=== PATIENT | male | born 1940 | race Caucasian/White ===

== ENCOUNTER 2016-09-12 17:38 | Emergency (ER) | payer MEDICARE ==
[2016-09-12 19:44] LABS: Appearance,Urine Clear (Clear); Bilirubin,Urine Negative (Negative); Glucose,Urine (UA) Negative (Negative); Ketones,Urine Negative (Negative); Leukocyte Esterase,Urine Negative (Negative); Nitrite,Urine Negative (Negative); PH, Urine 6.5 (5.0-8.0); Protein,Urine Negative (Negative); Specific Gravity,Urine 1.011 (1.001-1.035); UA Billing (MACRO vs. MICRO) CHEM; Urobilinogen,Urine <2.0 mg/dL (<2.0)
--- NOTE | 2016-09-12 19:54 | US ---
EXAMINATION TYPE: US scrotum with doppler. Grayscale and color Doppler Duplex imaging performed of t lia scrotum. DATE OF EXAM: 09/12/2016 COMPARISON: NONE CLINICAL HISTORY: Pain, patient states blood in semen. EXAM MEASUREMENTS: TESTICLES: Right Testicle: 4.0 x 1.9 x 2.9 cm Left Testicle: 4.4 x 2.1 x 2.7 cm EPIDIDYMIS HEAD: Right Epididymis: 1.3 cm, Two cystic areas visualized, largest measuring 0.4 x 0.3 x 0.6 cm Left Epididymis: 0.9 cm, cyst visualized measuring 0.4 x 0.4 x 0.5 cm Doppler performed to assess for testicular vascularity; good bilateral color flow and waveforms are s een. There is no evidence of testicular torsion. Presence of hydroceles: No Presence of varicoceles: No IMPRESSION: No testicular torsion or mass. Small epididymal cysts.
--- NOTE | 2016-09-12 20:36 | ED ---
General Adult HPI - General Chief complaint: GI Bleed Stated complaint: blood in semen Time Seen by Provider: 09/12/16 18:32 Source: patient, RN notes reviewed Mode of arrival: ambulatory Limitations: no limitations - History of Present Illness Initial comments: 76-year-old male presents with scant amount of semen and blood, Indigo discharged while taking a bowel movement. Patient states he was having a normal bowel movement, denies constipation or difficulty passing the stool when he noticed some semen with a small drop of blood in it. He also has bilateral testicular pain which has been present for some time. Patient is on aspirin and not on any anticoagulants. Denies any penile trauma, denies scrotal trauma, denies any difficulty passing stools. Denies fever or chills. Denies nausea vomiting or diarrhea. Has no rectal pain. - Related Data Home Medications Medication Instructions Recorded Confirmed Aspirin EC [Ecotrin Low Dose] 81 mg PO DAILY 09/12/16 09/12/16 Atorvastatin [Lipitor] 40 mg PO HS 09/12/16 09/12/16 Biotin 5 mg PO DAILY 09/12/16 09/12/16 Carvedilol [Coreg] 12.5 mg PO BID 09/12/16 09/12/16 Hydrochlorothiazide [Hydrodiuril] 25 mg PO DAILY 09/12/16 09/12/16 Ibuprofen [Motrin] 200 - 400 mg PO Q6HR PRN 09/12/16 09/12/16 Loratadine [Claritin] 10 mg PO DAILY PRN 09/12/16 09/12/16 Ubidecarenone [Co Q-10] 200 mg PO QAM 09/12/16 09/12/16 Allergies Allergy/AdvReac Type Severity Reaction Status Date / Time Penicillins Allergy Unknown Verified 09/12/16 18:40 Review of Systems ROS Statement: Those systems with pertinent positive or pertinent negative responses have been documented in the HPI. ROS Other: All systems not noted in ROS Statement are negative. Past Medical History Past Medical History: Hyperlipidemia, Hypertension History of Any Multi-Drug Resistant Organisms: None Reported Past Surgical History: Cholecystectomy, Coronary Bypass/CABG, Tonsillectomy Past Psychological History: No Psychological Hx Reported Smoking Status: Never smoker Past Alcohol Use History: Occasional Past Drug Use History: None Reported General Exam Limitations: no limitations General appearance: alert, in no apparent distress Head exam: Present: atraumatic, normocephalic Eye exam: Present: normal appearance, PERRL ENT exam: Present: normal exam, mucous membranes moist Neck exam: Present: normal inspection. Absent: meningismus Respiratory exam: Present: normal lung sounds bilaterally, respiratory distress Cardiovascular Exam: Present: regular rate, normal rhythm GI/Abdominal exam: Present: soft. Absent: distended, tenderness exam: Present: normal inspection. Absent: testicular tenderness, urethral discharge, scrotal swelling, vertical testicular lie Extremities exam: Present: normal capillary refill. Absent: pedal edema Neurological exam: Present: alert, oriented X3 Psychiatric exam: Present: normal affect, normal mood Skin exam: Present: warm, dry Course Vital Signs 09/12/16 09/12/16 18:14 20:07 Temperature 97.9 F Pulse Rate 77 65 Respiratory 18 18 Rate Blood Pressure 151/87 140/66 O2 Sat by Pulse 97 97 Oximetry Medical Decision Making - Medical Decision Making 70 sexual male presenting with blood-tinged seamen during a bowel movement. This is an isolated episode. Denies any recent intercourse. Does have some bilateral testicle pain. No other complaints. Urinalysis is negative for blood or signs of infection, bilateral testicular ultrasound shows epididymal cyst bilateral. No other acute findings. Patient is reassured and given urology follow-up. He'll return to emergency department with worsening symptoms. - Lab Data Lab Results 09/12/16 Range/Units 19:18 Urine Color Yellow Urine Appearance Clear (Clear) Urine pH 6.5 (5.0-8.0) Ur Specific [place] 1.011 (1.001-1.035) Urine Protein Negative (Negative) Urine Glucose (UA) Negative (Negative) Urine Ketones Negative (Negative) Urine Blood Negative (Negative) Urine Nitrite Negative (Negative) Urine Bilirubin Negative (Negative) Urine Urobilinogen <2.0 (<2.0) mg/dL Ur Leukocyte Esterase Negative (Negative) Disposition Clinical Impression: Hematuria Disposition: HOME SELF-CARE Condition: Good Instructions: Hematuria (ED) Referrals: John Arellano MD [Primary Care Provider] - 1-2 days John Reddy MD [STAFF PHYSICIAN] - 1-2 days Time of Disposition: 20:36
[2016-09-12 21:03] VITALS: BP 163/77; PULSE 67; RESP 16; TEMP 97.8
== END 2016-09-12 21:02 | disposition home or self-care (01) ==
LOC: EC 17:38
DX: N50.3 Cyst of epididymis (principal); R31.9 Hematuria, unspecified; R36.1 Hematospermia; E78.5 Hyperlipidemia, unspecified; I10 Essential (primary) hypertension; Z79.82 Long term (current) use of aspirin; Z79.899 Other long term (current) drug therapy; Z88.0 Allergy status to penicillin
CPT/HCPCS: 76870; 81003; 87086; 93975; 99285

== ENCOUNTER 2017-12-18 10:01 | Emergency (ER) | payer MEDICARE ==
[2017-12-18 10:11] VITALS: BP 132/76; PULSE 87; RESP 18; TEMP 98.1
--- NOTE | 2017-12-18 11:21 | ED ---
General Adult HPI - General Chief complaint: Allergic Reaction Stated complaint: poss allergic reaction Time Seen by Provider: 12/18/17 10:10 Source: patient, RN notes reviewed Mode of arrival: ambulatory Limitations: no limitations - History of Present Illness Initial comments: This is a 77-year-old male who presents emergency Department stating he is ALLERGIC reaction. Patient states the rash spoke on his face on Monday and it continues to spread and it is painful. Patient states it does not itch. Patient states it started his chin is now going towards his left ear. Patient states the whole side of his face is tender to touch. Patient states he broke out in 3 specific areas one on his chin 1 on his cheek can 1 by his ear. Patient denies any on his eye patient denies any visual disturbance. - Related Data Home Medications Medication Instructions Recorded Confirmed Aspirin EC [Ecotrin Low Dose] 81 mg PO DAILY 09/12/16 12/18/17 Atorvastatin [Lipitor] 40 mg PO HS 09/12/16 12/18/17 Carvedilol [Coreg] 12.5 mg PO BID 09/12/16 12/18/17 Hydrochlorothiazide [Hydrodiuril] 25 mg PO DAILY 09/12/16 12/18/17 Losartan [Cozaar] 25 mg PO DAILY 12/18/17 12/18/17 Previous Rx's Medication Instructions Recorded valACYclovir HCL [Valacyclovir] 1,000 mg PO Q8H #7 tab 12/18/17 Allergies Allergy/AdvReac Type Severity Reaction Status Date / Time aspirin Allergy Swelling Verified 12/18/17 10:39 [From [place] Plus Cold/Cough] chlorpheniramine Allergy Swelling Verified 12/18/17 10:39 [From [place] Plus Cold/Cough] dextromethorphan Allergy Swelling Verified 12/18/17 10:39 [From [place] Plus Cold/Cough] Penicillins Allergy Unknown Verified 12/18/17 10:39 phenylpropanolamine Allergy Swelling Verified 12/18/17 10:39 [From [place] Plus Cold/Cough] Review of Systems ROS Statement: Those systems with pertinent positive or pertinent negative responses have been documented in the HPI. ROS Other: All systems not noted in ROS Statement are negative. Past Medical History Past Medical History: Hyperlipidemia, Hypertension, Osteoarthritis (OA) Additional Past Medical History / Comment(s): ABDOMINAL ANEURYSM, SNORES- STATES MILD BREATHING PROBLEMS AT NIGHT. , DIFFICULTY SWALLOWING- FEELS LIKE FOOD GETS STUCK. History of Any Multi-Drug Resistant Organisms: None Reported Past Surgical History: Cholecystectomy, Coronary Bypass/CABG, Tonsillectomy Additional Past Surgical History / Comment(s): CABG X6 (2009) Past Anesthesia/Blood Transfusion Reactions: No Reported Reaction Past Psychological History: No Psychological Hx Reported Smoking Status: Never smoker Past Alcohol Use History: Occasional Past Drug Use History: None Reported - Past Family History Mother Family Medical History: Cancer Additional Family Medical History / Comment(s): OVARIAN WITH METS. General Exam - General Exam Comments Initial Comments: GENERAL: Patient is well-developed and well-nourished. Patient is nontoxic and well- hydrated and is in mild distress. ENT: Neck is soft and supple. No significant lymphadenopathy is noted. Oropharynx is clear. Moist mucous membranes. Neck has full range of motion without eliciting any pain. EYES: The sclera were anicteric and conjunctiva were pink and moist. Extraocular movements were intact and pupils were equal round and reactive to light. Eyelids were unremarkable. PULMONARY: Unlabored respirations. Good breath sounds bilaterally. No audible rales rhonchi or wheezing was noted. CARDIOVASCULAR: There is a regular rate and rhythm without any murmurs gallops or rubs. ABDOMEN: Soft and nontender with normal bowel sounds. No palpable organomegaly was noted. There is no palpable pulsatile mass. SKIN: Patient has 3 distinct areas of rash that appears to be slightly raised very tender to touch the area on the chin is excoriated the lump of erythematous raised area on his cheek and ear are somewhat consistent with shingles. Both areas are also tender to touch. Rashes confined to the left side of his face NEUROLOGIC: Patient is alert and oriented x3. Cranial nerves II through XII are grossly intact. Motor and sensory are also intact. Normal speech, volume and content. Symmetrical smile. MUSCULOSKELETAL: Normal extremities with adequate strength and full range of motion. PSYCHIATRIC: Normal psychiatric evaluation. Limitations: no limitations Course Vital Signs 12/18/17 10:09 Temperature 98.1 F Pulse Rate 87 Respiratory 18 Rate Blood Pressure 132/76 O2 Sat by Pulse 97 Oximetry Disposition Clinical Impression: Shingles Disposition: HOME SELF-CARE Condition: Good Instructions: Shingles (ED) Prescriptions: valACYclovir HCL [Valacyclovir] 1,000 mg PO Q8H #7 tab Is patient prescribed a controlled substance at d/c from ED?: No Referrals: John Arellano MD [Primary Care Provider] - 1-2 days Time of Disposition: 11:21
== END 2017-12-18 11:41 | disposition home or self-care (01) ==
LOC: EC 10:01
DX: B02.9 Zoster without complications (principal); E78.5 Hyperlipidemia, unspecified; I10 Essential (primary) hypertension; Z90.49 Acquired absence of other specified parts of digestive tract; Z95.1 Presence of aortocoronary bypass graft; Z79.82 Long term (current) use of aspirin; Z79.899 Other long term (current) drug therapy; Z88.0 Allergy status to penicillin; Z88.6 Allergy status to analgesic agent; Z88.8 Allergy status to other drugs, medicaments and biological substances
CPT/HCPCS: 99282

== ENCOUNTER 2021-01-22 16:30 | Observation (INO) | payer MEDICARE ==
--- NOTE | 2021-01-22 18:41 | ED ---
General Adult HPI - General Chief complaint: Recheck/Abnormal Lab/Rx Stated complaint: pacemaker issue Time Seen by Provider: 01/22/21 18:08 Source: patient, RN notes reviewed Mode of arrival: ambulatory Limitations: no limitations - History of Present Illness Initial comments: 80-year-old male with a past medical history of hyperlipidemia, hypertension, CAD, pacemaker for a chief complaint of pacemaker issues. Patient states he has a pacemaker for a lower heart rate. States it is not a defibrillator. Patient states that he has been feeling it buzzing and humming on and off for the past 24 hours. It comes and goes. States it lasts for several seconds and then resolves. 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 States his son's dog was jumping on his chest a lot and doesn't know if this caused an issue. Patient denies any chest pain or palpitations.Patient has no other complaints at this time including shortness of breath, chest pain, abdominal pain, nausea or vomiting, headache, or visual changes. - Related Data Home Medications Medication Instructions Recorded Confirmed Atorvastatin [Lipitor] 40 mg PO HS 09/12/16 01/22/21 Furosemide [Lasix] 20 mg PO DAILY 01/22/21 01/22/21 Losartan Potassium 50 mg PO DAILY 01/22/21 01/22/21 Magnesium Oxide [Mag-Ox] 400 mg PO DAILY 01/22/21 01/22/21 Metoprolol Tartrate [Lopressor] 25 mg PO BID 01/22/21 01/22/21 Rivaroxaban [Xarelto] 20 mg PO HS 01/22/21 01/22/21 hydroCHLOROthiazide [Hydrodiuril] 12.5 mg PO DAILY 01/22/21 01/22/21 Allergies Allergy/AdvReac Type Severity Reaction Status Date / Time aspirin Allergy Swelling Verified 01/22/21 19:19 [From [place] Plus Cold/Cough] chlorpheniramine Allergy Swelling Verified 01/22/21 19:19 [From [place] Plus Cold/Cough] dextromethorphan Allergy Swelling Verified 01/22/21 19:19 [From [place] Plus Cold/Cough] Penicillins Allergy Unknown Verified 01/22/21 19:19 phenylpropanolamine Allergy Swelling Verified 01/22/21 19:19 [From [place] Plus Cold/Cough] Review of Systems ROS Statement: Those systems with pertinent positive or pertinent negative responses have been documented in the HPI. ROS Other: All systems not noted in ROS Statement are negative. Past Medical History Past Medical History: Hyperlipidemia, Hypertension, Osteoarthritis (OA) Additional Past Medical History / Comment(s): ABDOMINAL ANEURYSM, SNORES- STATES MILD BREATHING PROBLEMS AT NIGHT. , DIFFICULTY SWALLOWING- FEELS LIKE FOOD GETS STUCK. History of Any Multi-Drug Resistant Organisms: None Reported Past Surgical History: Cholecystectomy, Coronary Bypass/CABG, Tonsillectomy Additional Past Surgical History / Comment(s): CABG X6 (2009) Past Anesthesia/Blood Transfusion Reactions: No Reported Reaction Past Psychological History: No Psychological Hx Reported Smoking Status: Never smoker Past Alcohol Use History: Occasional Past Drug Use History: None Reported - Past Family History Mother Family Medical History: Cancer Additional Family Medical History / Comment(s): OVARIAN WITH METS. General Exam Limitations: no limitations General appearance: alert, in no apparent distress Head exam: Present: atraumatic Eye exam: Present: normal appearance, PERRL, EOMI. Absent: scleral icterus, conjunctival injection ENT exam: Present: normal exam, mucous membranes moist Neck exam: Present: normal inspection, full ROM. Absent: tenderness Respiratory exam: Present: normal lung sounds bilaterally. Absent: respiratory distress, wheezes Cardiovascular Exam: Present: regular rate, normal rhythm, normal heart sounds GI/Abdominal exam: Present: soft, normal bowel sounds. Absent: distended, tenderness Neurological exam: Present: alert Course Vital Signs 01/22/21 01/22/21 16:34 19:57 Temperature 98 F Pulse Rate 77 Pulse Rate [ 77 Softlines Supervisor ] Respiratory 20 Rate Blood Pressure 189/99 O2 Sat by Pulse 96 Oximetry EKG Findings - EKG Comments: EKG Findings:: Ventricular paced rhythm, ventricular rate 80, QRS duration 176, QTc 555 Medical Decision Making - Medical Decision Making Vitals are stable. Patient is well appearing. EKG shows a ventricular paced rhythm. Chest x-ray shows mild pulmonary fibrosis without heart failure. Left axillary pacemaker noted. We did do a interrogation. There were 3 alerts. Patient is stating he is still feeling it buzzing and vibrating. Therefore we will admit patient's for cardiology consultation to review pacemaker interrogation sure there are no problems with patient's pacemaker. - Lab Data Result diagrams: 01/22/21 18:50 01/22/21 18:50 Lab Results 01/22/21 01/22/21 Range/Units 18:50 18:50 WBC 8.3 (3.8-10.6) k/uL RBC 4.99 (4.30-5.90) m/uL Hgb 15.8 (13.0-17.5) gm/dL Hct 46.6 (39.0-53.0) % MCV 93.3 (80.0-100.0) fL MCH 31.6 (25.0-35.0) pg MCHC 33.9 (31.0-37.0) g/dL RDW 13.6 (11.5-15.5) % Plt Count 247 (150-450) k/uL MPV 6.9 Neutrophils % 63 % Lymphocytes % 27 % Monocytes % 5 % Eosinophils % 2 % Basophils % 1 % Neutrophils # 5.2 (1.3-7.7) k/uL Lymphocytes # 2.3 (1.0-4.8) k/uL Monocytes # 0.4 (0-1.0) k/uL Eosinophils # 0.2 (0-0.7) k/uL Basophils # 0.1 (0-0.2) k/uL Sodium 136 L (137-145) mmol/L Potassium 4.1 (3.5-5.1) mmol/L Chloride 101 (98-107) mmol/L Carbon Dioxide 26 (22-30) mmol/L Anion Gap 9 mmol/L BUN 27 H (9-20) mg/dL Creatinine 1.24 (0.66-1.25) mg/dL Est GFR (CKD-EPI)AfAm 64 (>60 ml/min/1.73 sqM) Est GFR (CKD-EPI)NonAf 55 (>60 ml/min/1.73 sqM) Glucose 116 H (74-99) mg/dL Calcium 9.1 (8.4-10.2) mg/dL Disposition Clinical Impression: Pacemaker complications Disposition: HOME SELF-CARE Condition: Good Is patient prescribed a controlled substance at d/c from ED?: No Referrals: John Arellano MD [Primary Care Provider] - 1-2 days Time of Disposition: 21:12
[2021-01-22 19:00] LABS: Basophils # (A) 0.1 k/uL (0-0.2); Basophils % (A) 1 %; Eosinophils # (A) 0.2 k/uL (0-0.7); Eosinophils % (A) 2 %; HCT 46.6 % (39.0-53.0); HGB 15.8 gm/dL (13.0-17.5); Lymphocytes # (A) 2.3 k/uL (1.0-4.8); Lymphocytes % (A) 27 %; MCH 31.6 pg (25.0-35.0); MCHC 33.9 g/dL (31.0-37.0); MCV 93.3 fL (80.0-100.0); Mean Platelet Volume 6.9; Monocytes # (A) 0.4 k/uL (0-1.0); Monocytes % (A) 5 %; Neutrophils # (A) 5.2 k/uL (1.3-7.7); Neutrophils % (A) 63 %; Platelet Count 247 k/uL (150-450); RBC 4.99 m/uL (4.30-5.90); RDW 13.6 % (11.5-15.5); WBC 8.3 k/uL (3.8-10.6)
--- NOTE | 2021-01-22 19:18 | XR ---
EXAMINATION TYPE: XR chest 2V DATE OF EXAM: 01/22/2021 COMPARISON: NONE HISTORY: Short of breath TECHNIQUE: 2 views FINDINGS: There is left axillary pacemaker. Heart size is normal. Thoracic aorta is atheromatous. The re are chest leads. There are sternal wires. There is no definite pleural effusion. There is coarseni ng of the interstitial markings. IMPRESSION: Mild pulmonary fibrosis. No heart failure.
[2021-01-22 19:29] LABS: Calcium 9.1 mg/dL (8.4-10.2); Potassium 4.1 mmol/L (3.5-5.1)
[2021-01-22] MEDS ORDERED: NALOXONE 0.4 MG/ML 1 ML VIAL IV PRN (21:13)
[2021-01-22] MEDS ORDERED: SODIUM CHLORIDE 0.9% 1,000 ML IV SCH (21:15)
[2021-01-22] MEDS ORDERED: ATORVASTATIN 40 MG TAB PO SCH (22:00)
[2021-01-22] MEDS ORDERED: RIVAROXABAN 20 MG TAB PO SCH (22:00)
[2021-01-23 01:41] VITALS: BP 133/86
[2021-01-23 08:24] VITALS: PULSE 83; RESP 18; TEMP 97.5
[2021-01-23] MEDS ORDERED: FUROSEMIDE 20 MG TAB PO SCH (09:00)
[2021-01-23] MEDS ORDERED: LOSARTAN 50 MG TAB PO SCH (09:00)
[2021-01-23] MEDS ORDERED: hydroCHLOROthiazide 12.5 MG CAP PO SCH (09:00)
[2021-01-23] MEDS ORDERED: METOPROLOL TARTRATE 25 MG TAB PO SCH (09:00)
[2021-01-23] MEDS ORDERED: MAGNESIUM OXIDE 400 MG TAB PO SCH (09:00)
[2021-01-23] MEDS ORDERED: METOPROLOL TARTRATE 25 MG TAB PO STA (10:34)
--- NOTE | 2021-01-23 10:37 | P.CRDCN ---
History of Present Illness History of present illness: HISTORY OF PRESENTING ILLNESS This is a pleasant 80-year-old male past medical history significant for coronary artery disease status post bypass grafting 2010, sick sinus syndrome status post permanent pacemaker implantation, history of ventricular ectopy, obstructive sleep apnea, hypertension and dyslipidemia. He also was recently diagnosed with new-onset paroxysmal atrial fibrillation and initiated on Xarelto. He follows in the office with Dr. Luna. We have been asked to see in consultation for pacemaker evaluation. Patient states throughout the day yesterday he describes a buzzing sensation in his chest. He states he feels like he can feel his pacemaker sending signals. He denies palpitations, chest pain or shortness of breath. He states he did drink a lot of coffee over the holiday and he is extremely sensitive to coffee so unsure if there is any correlation. He was recently diagnosed in the office with atrial fibrillation that was noted on his pacemaker interrogation. He is asymptomatic in that respect. He current interrogation obtained in the emergency department revealed atrial tachycardia. DIAGNOSTICS EKG reveals ventricular pacing. Chest xray underlying pulmonary fibrosis with no acute process. Laboratory reviewed, creatinine 1.24, sodium 136, potassium 4.1 and CBC unremarkable. Current cardiac medications include atorvastatin 40 mg at bedtime, Lasix 20 mg daily, hydrocortisone 5-12.5 mg daily, losartan 50 mg daily, Lopressor 25 mg tw ice a day and Xarelto 20 mg at bedtime. Most recent echocardiogram obtained in 2019 revealed preserved LV systolic function with ejection fraction 50% with hypokinesia in the inferior wall at the base. Most recent stress test performed in the office 2019 he walks for 3 minutes achieving a target heart rate with no ischemia. REVIEW OF SYSTEMS At the time of my exam: CONSTITUTIONAL: Denies fever or chills. CARDIOVASCULAR: Denies chest pain, shortness of breath, orthopnea, PND or palpitations. RESPIRATORY: Denies cough. GASTROINTESTINAL: Denies abdominal pain, diarrhea, constipation, nausea or vomiting. MUSCULOSKELETAL: Denies myalgias. NEUROLOGIC: Denies numbness, tingling, headache or weakness. ENDOCRINE: Denies fatigue, weight change, polydipsia or polyurina. GENITOURINARY: Denies burning, hematuria or urgency with micturation. HEMATOLOGIC: Denies history of anemia or bleeding. PHYSICAL EXAMINATION Blood pressure 133/86 heart rate 83 afebrile and maintaining oxygen saturation on room air. CONSTITUTIONAL: No apparent distress. HEENT: Head is normocephalic. Pupils are equal, round. Sclerae anicteric. Mucous membranes of the mouth are moist. No JVD. No carotid bruit. CHEST EXAMINATION: Lungs are clear to auscultation. No chest wall tenderness is noted on palpation or with deep breathing. HEART EXAMINATION: Regular rate and rhythm. S1, S2 heard. No murmurs, gallops or rub. ABDOMEN: Soft, nontender. EXTREMITIES: 2+ peripheral pulses, no lower extremity edema and no calf tenderness. NEUROLOGIC EXAMINATION: Patient is awake, alert and oriented x3. ASSESSMENT Palpitations Paroxysmal atrial fibrillation on Xarelto. Currently in sinus rhythm. Coronary artery disease status post bypass grafting Hypertension Dyslipidemia PLAN Avoid caffeine. Increase lopressor to 50 mg BID. Stable for discharge from a cardiac perspective. Follow up with Dr. Luna in the office in 2 weeks. Thank you kindly for this consultation. Nurse Practitioner note has been reviewed, I agree with a documented findings and plan of care. Patient was seen and examined. Past Medical History Past Medical History: Hyperlipidemia, Hypertension, Osteoarthritis (OA) Additional Past Medical History / Comment(s): ABDOMINAL ANEURYSM, SNORES- STATES MILD BREATHING PROBLEMS AT NIGHT. , DIFFICULTY SWALLOWING- FEELS LIKE CHRIS D GETS STUCK. History of Any Multi-Drug Resistant Organisms: None Reported Past Surgical History: Cholecystectomy, Coronary Bypass/CABG, Tonsillectomy Additional Past Surgical History / Comment(s): CABG X6 (2009) Past Anesthesia/Blood Transfusion Reactions: No Reported Reaction Past Psychological History: No Psychological Hx Reported Smoking Status: Never smoker Past Alcohol Use History: Occasional Past Drug Use History: None Reported - Past Family History Mother Family Medical History: Cancer Additional Family Medical History / Comment(s): OVARIAN WITH METS. Medications and Allergies Home Medications Medication Instructions Recorded Confirmed Type Atorvastatin [Lipitor] 40 mg PO HS 09/12/16 01/22/21 History Furosemide [Lasix] 20 mg PO DAILY 01/22/21 01/22/21 History Losartan Potassium 50 mg PO DAILY 01/22/21 01/22/21 History Magnesium Oxide [Mag-Ox] 400 mg PO DAILY 01/22/21 01/22/21 History Rivaroxaban [Xarelto] 20 mg PO HS 01/22/21 01/22/21 History hydroCHLOROthiazide [Hydrodiuril] 12.5 mg PO DAILY 01/22/21 01/22/21 History Metoprolol Tartrate [Lopressor] 50 mg PO BID tab 01/23/21 Rx Allergies Allergy/AdvReac Type Severity Reaction Status Date / Time aspirin Allergy Swelling Verified 01/22/21 19:19 [From [place] Plus Cold/Cough] chlorpheniramine Allergy Swelling Verified 01/22/21 19:19 [From [place] Plus Cold/Cough] dextromethorphan Allergy Swelling Verified 01/22/21 19:19 [From [place] Plus Cold/Cough] Penicillins Allergy Unknown Verified 01/22/21 19:19 phenylpropanolamine Allergy Swelling Verified 01/22/21 19:19 [From [place] Plus Cold/Cough] Physical Exam Vitals: Vital Signs Temp Pulse Pulse Resp BP BP Pulse Ox 01/23/21 07:00 97.5 F L 83 18 94 L 01/23/21 01:40 97.8 F 72 133/86 97 01/23/21 00:00 159/92 95 01/22/21 22:58 82 20 98 01/22/21 21:49 77 18 169/89 98 01/22/21 19:57 77 01/22/21 16:34 98 F 77 20 189/99 96 Intake and Output 01/22/21 01/23/21 01/23/21 22:59 06:59 14:59 Intake Total 120 Output Total 0 Balance 0 120 Intake: Oral 120 Output: Emesis 0 Other: # Voids 1 Weight 99.79 kg 99.79 kg Results 01/22/21 18:50 01/22/21 18:50 CBC 01/22/21 Range/Units 18:50 WBC 8.3 (3.8-10.6) k/uL RBC 4.99 (4.30-5.90) m/uL Hgb 15.8 (13.0-17.5) gm/dL Hct 46.6 (39.0-53.0) % Plt Count 247 (150-450) k/uL Comprehensive Metabolic Panel 01/22/21 Range/Units 18:50 Sodium 136 L (137-145) mmol/L Potassium 4.1 (3.5-5.1) mmol/L Chloride 101 (98-107) mmol/L Carbon Dioxide 26 (22-30) mmol/L BUN 27 H (9-20) mg/dL Creatinine 1.24 (0.66-1.25) mg/dL Glucose 116 H (74-99) mg/dL Calcium 9.1 (8.4-10.2) mg/dL Current Medications Generic Name Dose Route Start Last Admin Trade Name Freq PRN Reason Stop Dose Admin Atorvastatin Calcium 40 mg 01/22/21 22:00 01/22/21 21:51 Atorvastatin 40 Mg Tab PO 40 mg HS ALBER Administration Furosemide 20 mg 01/23/21 09:00 01/23/21 08:42 Furosemide 20 Mg Tab PO 20 mg DAILY ALBER Administration Hydrochlorothiazide 12.5 mg 01/23/21 09:00 Hydrochlorothiazide 12.5 Mg Cap PO DAILY ALBER Sodium Chloride 1,000 mls @ 75 mls/hr 01/22/21 21:15 01/22/21 21:51 Saline 0.9% IV 75 mls/hr .[id number] ALBER Administration Losartan Potassium 50 mg 01/23/21 09:00 01/23/21 08:42 Losartan 50 Mg Tab PO 50 mg DAILY ALBER Administration Magnesium Oxide 400 mg 01/23/21 09:00 01/23/21 08:42 Magnesium Oxide 400 Mg Tab PO 400 mg DAILY ALBER Administration Metoprolol Tartrate 25 mg 01/23/21 09:00 01/23/21 08:42 Metoprolol Tartrate 25 Mg Tab PO 25 mg BID ALBER Administration Naloxone HCl 0.2 mg 01/22/21 21:13 Naloxone 0.4 Mg/Ml 1 Ml Vial IV Q2M PRN Opioid Reversal Rivaroxaban 20 mg 01/22/21 22:00 01/22/21 21:52 Rivaroxaban 20 Mg Tab PO Not Given HS [facility] Protocol Intake and Output 01/22/21 01/23/21 01/23/21 22:59 06:59 14:59 Intake Total 120 Output Total 0 Balance 0 120 Intake: Oral 120 Output: Emesis 0 Other: # Voids 1 Weight 99.79 kg 99.79 kg 01/22/21 18:50 01/22/21 18:50
--- NOTE | 2021-01-23 11:17 | P.HPIM ---
History of Present Illness H&P Date: 01/23/21 (This document was of both his H&P and discharge summary) Chief Complaint: palpitation 80 years old male patient of Dr. Arellano, with past medical history of hypertension, hyperlipidemia, osteoarthritis, history of abdominal aneurysm, sleep apnea does not wear CPAP, history of for coronary artery disease status post coronary artery bypass grafting 2010 , sick sinus syndrome status post pacemaker placement placed a few months ago by Dr. Luna, history of ventricular ectopy, history of atrial fibrillation diagnosed recently on xarelto comes in with constant buzzing sensation in the chest. Patient had Thanksgiving dinner at his daughter's and drank 4 cups of coffee. He does not drink coffee on a day-to-day basis. He also had a [place] press on his chest while playing. Since the symptoms does not get better he decided to come and get his pacemaker evaluated. He denied any chest pain, shortness of breath. Patient denies any dizziness, diarrhea change in bowel habits, hematuria or increased frequency or dysuria. Vitals were evaluated patient's afebrile pulse 80. Respiratory rate 18 blood pressure 133/86 oxygen saturation 97% on room air drawn in the ER suggestive WBC of 8.3 hemoglobin 15.8 platelets 247 sodium 136 BUN 27 creatinine 1.24 glucose 116 COVID-19 was negative EKG suggested ventricular paced rhythm Chest x-ray was mild pulmonary fibrosis no heart failure ROS Constitutional: Denies chills, Denies fever, Denies lethargy, Denies malaise, Denies poor appetite, Denies weakness, Denies weight loss Eyes: denies decreased vision, denies diplopia, denies discharge, denies pain Ears: deny: decreased hearing Ears, nose, mouth and throat: Denies dental pain, Denies headache, Denies nasal discharge, Denies nose pain Cardiovascular: Intermittent palpitations Denies chest pain, Denies decreased exercise tolerance, Denies edema, Denies high blood pressure, Denies irregular heart beat, Denies paroxysmal nocturnal dyspnea, Denies rapid heart beat, Denies shortness of breath Respiratory: Denies congestion, Denies cough, Denies cough with sputum, Denies dyspnea, Denies home oxygen, Denies wheezing Gastrointestinal: Denies abdominal pain, Denies change in bowel habits, Denies coffee ground emesis, Denies early satiety, Denies excessive gas, Denies heartburn, Denies hematemesis, Denies hematochezia, Denies loss of appetite, Denies nausea, Denies vomiting Genitourinary: Denies dysuria, Denies flank pain, Denies kidney stones, Denies menorrhagia, Denies urgency, Denies urinary frequency Musculoskeletal: Denies gait dysfunction, Denies limitation of motion, Denies morning stiffness, Denies muscle cramps Integumentary: Denies rash, Denies wounds, Denies brittle nails, Denies change in hair/nails, Denies darkening of skin Neurological: Denies balance difficulties, Denies change in speech, Denies double vision, Denies gait dysfunction, Denies loss of vision, Denies motor disturbance, Denies numbness, Denies paralysis, Denies paresthesias, Denies seizures Psychiatric: Denies anxiety, Denies depression Endocrine: Denies excessive sweating, Denies excessive thirst, Denies high blood sugars, Denies palpitations Hematologic/Lymphatic: Denies easy bruising, Denies lymphadenopathy Social history Nonsmoker nondrinker no illicit drug use. Has sleep apnea used to wear CPAP machine but could not tolerate it so discontinued. Lives with his no use of cane or walker Family history Father in their 80s from cancer unknown cause, examined disease Mother disease in the 80s from female cancer Patient has one brother with no medical problems one sister with no medical problems Has 4 children 2 daughters have heart disease, one son has heart disease Physical exam - Constitutional General appearance: cooperative, no acute distress, obese - EENT Eyes: anicteric sclerae, PERRLA, normal appearance ENT: hearing grossly normal - Neck Neck: no lymphadenopathy, normal ROM, no other, no rigidity, no stridor, no thyromegaly - Respiratory Respiratory: bilateral: CTA, negative: diminished, dullness, rales, rhonchi - Cardiovascular Rhythm: regular Heart sounds: normal: S1, S2 Abnormal Heart Sounds: no systolic murmur, no diastolic murmur, no rub, no S3 Gallop, no S4 Gallop, no click, no other - Gastrointestinal General gastrointestinal: normal bowel sounds, soft - Integumentary Integumentary: no rash - Neurologic Neurologic: CNII-XII intact - Musculoskeletal Musculoskeletal: gait normal, strength equal bilaterally - Psychiatric Psychiatric: A&O x's 3, appropriate affect Assessment and plan Palpitations Paroxysmal atrial fibrillation Sick sinus syndrome - EKG suggestive of paced rhythm - Cardiology consulted and recommended increasing Lopressor to 50 mg twice a day - Pacemaker interrogation noted 3 events that suggestive of atrial fibrillation - Xarelto was initiated by cardiology, side effects explained to the patient - Avoid caffeine - Follow up with Dr. Luna as outpatient Coronary artery disease status post bypass 2010 Hypertension and hypertensive cardiovascular disease Hyperlipidemia - Continue xarelto 20 mg daily at bedtime - Continue Lipitor 20 mg by mouth daily - Continue hydrochlorothiazide 12.5 mg by mouth daily - Continue Lasix 20 mg by mouth daily Hyperglycemia - Follow heart healthy diabetic diet - No indication of medication Obstructive sleep apnea - noncompliant with CPAP - Patient educated on the need to wear CPAP regularly DVT prophylaxis - Patient on xarelto CODE STATUS - Full code Disposition- home with self-care Follow-up with Dr. Luna in 2 weeks Past Medical History Past Medical History: Hyperlipidemia, Hypertension, Osteoarthritis (OA) Additional Past Medical History / Comment(s): ABDOMINAL ANEURYSM, SNORES- STATES MILD BREATHING PROBLEMS AT NIGHT. , DIFFICULTY SWALLOWING- FEELS LIKE FOOD GETS STUCK. History of Any Multi-Drug Resistant Organisms: None Reported Past Surgical History: Cholecystectomy, Coronary Bypass/CABG, Tonsillectomy Additional Past Surgical History / Comment(s): CABG X6 (2009) Past Anesthesia/Blood Transfusion Reactions: No Reported Reaction Past Psychological History: No Psychological Hx Reported Smoking Status: Never smoker Past Alcohol Use History: Occasional Past Drug Use History: None Reported - Past Family History Mother Family Medical History: Cancer Additional Family Medical History / Comment(s): OVARIAN WITH METS. Medications and Allergies Home Medications Medication Instructions Recorded Confirmed Type Atorvastatin [Lipitor] 40 mg PO HS 09/12/16 01/22/21 History Furosemide [Lasix] 20 mg PO DAILY 01/22/21 01/22/21 History Losartan Potassium 50 mg PO DAILY 01/22/21 01/22/21 History Magnesium Oxide [Mag-Ox] 400 mg PO DAILY 01/22/21 01/22/21 History Rivaroxaban [Xarelto] 20 mg PO HS 01/22/21 01/22/21 History hydroCHLOROthiazide [Hydrodiuril] 12.5 mg PO DAILY 01/22/21 01/22/21 History Metoprolol Tartrate [Lopressor] 50 mg PO BID tab 01/23/21 Rx Allergies Allergy/AdvReac Type Severity Reaction Status Date / Time aspirin Allergy Swelling Verified 01/22/21 19:19 [From Barbara-Rowdy Plus Cold/Cough] chlorpheniramine Allergy Swelling Verified 01/22/21 19:19 [From Barbara-Rowdy Plus Cold/Cough] dextromethorphan Allergy Swelling Verified 01/22/21 19:19 [From Barbara-Rowdy Plus Cold/Cough] Penicillins Allergy Unknown Verified 01/22/21 19:19 phenylpropanolamine Allergy Swelling Verified 01/22/21 19:19 [From Barbara-Rowdy Plus Cold/Cough] Physical Exam Vitals: Vital Signs Temp Pulse Pulse Resp BP BP Pulse Ox 01/23/21 07:00 97.5 F L 83 18 94 L 01/23/21 01:40 97.8 F 72 133/86 97 01/23/21 00:00 159/92 95 01/22/21 22:58 82 20 98 01/22/21 21:49 77 18 169/89 98 01/22/21 19:57 77 01/22/21 16:34 98 F 77 20 189/99 96 Intake and Output 01/22/21 01/23/21 01/23/21 22:59 06:59 14:59 Intake Total 120 Output Total 0 Balance 0 120 Intake: Oral 120 Output: Emesis 0 Other: # Voids 1 Weight 99.79 kg 99.79 kg Results CBC & Chem 7: 01/22/21 18:50 01/22/21 18:50 Labs: Abnormal Lab Results - Last 24 Hours (Table) 01/22/21 Range/Units 18:50 Sodium 136 L (137-145) mmol/L BUN 27 H (9-20) mg/dL Glucose 116 H (74-99) mg/dL Thrombosis Risk Factor Assmnt - Choose All That Apply Each Factor Represents 1 point: Obesity (BMI >25) Each Risk Factor Represents 3 Points: Age 75 years or older Thrombosis Risk Factor Assessment Total Risk Factor Score: 4 Thrombosis Risk Factor Assessment Level: Moderate Risk
[2021-01-23] MEDS ORDERED: METOPROLOL TARTRATE 50 MG TAB PO SCH (21:00)
== END 2021-01-23 11:46 | disposition home or self-care (01) ==
LOC: EC 16:30 → 6NMEDSUR 21:15
PROVIDERS: ADMIT Internal Medicine; ATTEND Internal Medicine
DX: R00.2 Palpitations (principal); I48.0 Paroxysmal atrial fibrillation; I49.5 Sick sinus syndrome; I47.1 Supraventricular tachycardia; Z95.0 Presence of cardiac pacemaker; I11.9 Hypertensive heart disease without heart failure; I25.10 Atherosclerotic heart disease of native coronary artery without angina pectoris; E78.5 Hyperlipidemia, unspecified; M19.90 Unspecified osteoarthritis, unspecified site; J84.10 Pulmonary fibrosis, unspecified; R73.9 Hyperglycemia, unspecified; I71.4 Abdominal aortic aneurysm, without rupture; G47.33 Obstructive sleep apnea (adult) (pediatric); Z91.19 Patient's noncompliance with other medical treatment and regimen; R13.10 Dysphagia, unspecified; E66.9 Obesity, unspecified; Z68.34 Body mass index [BMI] 34.0-34.9, adult; Z20.822 Contact with and (suspected) exposure to COVID-19; Z79.01 Long term (current) use of anticoagulants; Z79.899 Other long term (current) drug therapy; Z88.6 Allergy status to analgesic agent; Z88.0 Allergy status to penicillin; Z88.8 Allergy status to other drugs, medicaments and biological substances; Z90.49 Acquired absence of other specified parts of digestive tract; Z95.1 Presence of aortocoronary bypass graft; Z86.79 Personal history of other diseases of the circulatory system; Z98.890 Other specified postprocedural states; Z80.41 Family history of malignant neoplasm of ovary; Z82.49 Family history of ischemic heart disease and other diseases of the circulatory system
CPT/HCPCS: 99285; 36415; 93005; 80048; 85025; 87635; 71046; G0378 ×2

== ENCOUNTER 2022-03-24 10:34 | Emergency (ER) | payer MEDICARE ==
[2022-03-24 11:19] LABS: Albumin 3.5 g/dL (3.5-5.0); Calcium 8.1 mg/dL (8.4-10.2); Total Bilirubin 1.3 mg/dL (0.2-1.3); Total Protein 7.7 g/dL (6.3-8.2)
[2022-03-24 11:51] LABS: INR 1.4 (<1.2); Partial Thromboplastin Time 27.5 sec (22.0-30.0); Prothrombin Time 14.2 sec (9.0-12.0)
[2022-03-24 11:56] LABS: Basophils % (A) 0 %; Eosinophils # (A) 0.1 k/uL (0-0.7); Eosinophils % (A) 1 %; HCT 45.5 % (39.0-53.0); HGB 14.8 gm/dL (13.0-17.5); Lymphocytes # (A) 0.7 k/uL (1.0-4.8); Lymphocytes % (A) 8 %; MCH 30.6 pg (25.0-35.0); MCHC 32.5 g/dL (31.0-37.0); MCV 94.1 fL (80.0-100.0); Mean Platelet Volume 7.5; Monocytes # (A) 0.3 k/uL (0-1.0); Monocytes % (A) 4 %; Neutrophils # (A) 7.6 k/uL (1.3-7.7); Neutrophils % (A) 86 %; Platelet Count 229 k/uL (150-450); RBC 4.83 m/uL (4.30-5.90); RDW 13.5 % (11.5-15.5); WBC 8.9 k/uL (3.8-10.6)
--- NOTE | 2022-03-24 12:52 | XR ---
EXAMINATION TYPE: XR chest 2V DATE OF EXAM: 03/24/2022 COMPARISON: 01/22/2021 HISTORY: Shortness of breath TECHNIQUE: Frontal and lateral views of the chest are obtained. FINDINGS: Scattered senescent parenchymal changes noted. There is pulmonary venous congestion with small effusions. Chronic appearing pleural-parenchymal dens ity left lower lobe. Heart size is stable. Mediastinal structures are stable and grossly unremarkable. No evidence for hilar prominence. Degenerative changes dorsal spine. IMPRESSION: 1. Correlate for borderline congestive failure.
--- NOTE | 2022-03-24 13:24 | CT ---
EXAMINATION TYPE: CT chest angio for PE DATE OF EXAM: 03/24/2022 COMPARISON: None HISTORY: Difficulty breathing CT DLP: 561.6 mGycm CONTRAST: CT chest with contrast and 3D reconstruction with MIP imaging is performed with IV Contrast, patient injected with 77 mL of Isovue 370. Contrast-enhanced CT of the chest was performed through the course of the pulmonary arteries with william g and mediastinal window settings submitted. 3D reconstruction with MIP imaging was also performed. PULMONARY ARTERIES: There is mural thrombus are noted within the right upper lobe second and third or judy branches particularly image 50 of 146 sequence 401 and image 48 of 146 sequence 401. I cannot exc lude chronic mural thrombus. I do not see evidence for sizable filling defect to suggest acute pulmon manuela embolic process. LUNGS: The lungs are clear and free of infiltrate. No evidence for atelectasis. No pulmonary nodule or mass is detected. No pleural effusion. Scattered subpleural fibrosis seen bilaterally. Dependen t atelectasis left lower lobe. MEDIASTINUM: Thoracic aorta is of normal caliber,however, evaluation is limited given timing of the contrast bolus. If there is concern for thoracic aortic pathology consider CELESTE. Correlate clinicall y . The heart is not enlarged. No evidence for mediastinal mass. No mediastinal lymph nodes greater than 1cm. HILAR STRUCTURES: No evidence for mass. No hilar lymph nodes greater than 1 cm. UPPER ABDOMEN: No significant abnormality is seen. IMPRESSION: 1. No evidence for acute Pulmonary embolism at this time. 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 See above.
--- NOTE | 2022-03-24 13:55 | ED ---
General Adult HPI - General Chief complaint: Shortness of Breath Stated complaint: NICKY Time Seen by Provider: 03/24/22 10:49 Source: patient, EMS Mode of arrival: EMS Limitations: no limitations - History of Present Illness Initial comments: 81-year-old male presents to the emergency room reporting shortness of breath. States that he was using his tractor to allow his driveway. States he began feeling lightheaded. He got off of his tractor and sat in his car. He states that he thought that he might have passed out for several seconds. He was not involved in an accident. States the car only had moved approximately 5 feet in the amount of time that he blacked out. He then attempted to exit the vehicle however felt even increasingly lightheaded. That's when he hit the morning for his who eventually came outside to find him sitting in the front seat. He told her that he felt short of breath and she called an ambulance. Patient rep orts he is completely asymptomatic hospital arrival. He denies chest pain or shortness of breath at this time. No headaches or visual changes. No recent medication changes. No calf pain or swelling. No fevers, chills or cough. No other alleviating, precipitating or modifying factors - Related Data Home Medications Medication Instructions Recorded Confirmed Atorvastatin [Lipitor] 40 mg PO HS 09/12/16 01/22/21 Furosemide [Lasix] 20 mg PO DAILY 01/22/21 01/22/21 Losartan Potassium 50 mg PO DAILY 01/22/21 01/22/21 Magnesium Oxide [Mag-Ox] 400 mg PO DAILY 01/22/21 01/22/21 Rivaroxaban [Xarelto] 20 mg PO HS 01/22/21 01/22/21 hydroCHLOROthiazide [Hydrodiuril] 12.5 mg PO DAILY 01/22/21 01/22/21 Previous Rx's Medication Instructions Recorded Metoprolol Tartrate [Lopressor] 50 mg PO BID tab 01/23/21 Metoprolol Tartrate [Lopressor] 50 mg PO BID #60 tab 01/23/21 Allergies Allergy/AdvReac Type Severity Reaction Status Date / Time aspirin Allergy Swelling Verified 01/22/21 19:19 [From [facility] Cold/Cough] chlorpheniramine Allergy Swelling Verified 01/22/21 19:19 [From [facility] Cold/Cough] dextromethorphan Allergy Swelling Verified 01/22/21 19:19 [From [facility] Cold/Cough] Penicillins Allergy Unknown Verified 01/22/21 19:19 phenylpropanolamine Allergy Swelling Verified 01/22/21 19:19 [From [facility] Cold/Cough] Review of Systems ROS Statement: Those systems with pertinent positive or pertinent negative responses have been documented in the HPI. ROS Other: All systems not noted in ROS Statement are negative. Past Medical History Past Medical History: Hyperlipidemia, Hypertension, Osteoarthritis (OA) Additional Past Medical History / Comment(s): ABDOMINAL ANEURYSM, SNORES- STATES MILD BREATHING PROBLEMS AT NIGHT. , DIFFICULTY SWALLOWING- FEELS LIKE FOOD GETS STUCK. History of Any Multi-Drug Resistant Organisms: None Reported Past Surgical History: Cholecystectomy, Coronary Bypass/CABG, Tonsillectomy Additional Past Surgical History / Comment(s): CABG X6 (2009) Past Anesthesia/Blood Transfusion Reactions: No Reported Reaction Past Psychological History: No Psychological Hx Reported Smoking Status: Never smoker Past Alcohol Use History: Occasional Past Drug Use History: None Reported - Past Family History Mother Family Medical History: Cancer Additional Family Medical History / Comment(s): OVARIAN WITH METS. General Exam Limitations: no limitations General appearance: alert, in no apparent distress Head exam: Present: atraumatic, normocephalic, normal inspection Eye exam: Present: normal appearance, PERRL, EOMI. Absent: scleral icterus, conjunctival injection, periorbital swelling ENT exam: Present: normal exam, mucous membranes moist Neck exam: Present: normal inspection. Absent: tenderness, meningismus, lymphadenopathy Respiratory exam: Present: normal lung sounds bilaterally. Absent: respiratory distress, wheezes, rales, rhonchi, stridor Cardiovascular Exam: Present: regular rate, normal rhythm, normal heart sounds. Absent: systolic murmur, diastolic murmur, rubs, gallop, clicks GI/Abdominal exam: Present: soft, normal bowel sounds. Absent: distended, tenderness, guarding, rebound, rigid Extremities exam: Present: normal inspection, full ROM, normal capillary refill. Absent: tenderness, pedal edema, joint swelling, calf tenderness Back exam: Present: normal inspection Neurological exam: Present: alert, oriented X3, CN II-XII intact Psychiatric exam: Present: normal affect, normal mood Skin exam: Present: warm, dry, intact, normal color. Absent: rash Course Vital Signs 03/24/22 03/24/22 03/24/22 10:36 11:30 13:55 Temperature 97.7 F 98.7 F Pulse Rate 71 70 72 Respiratory 24 20 22 Rate Blood Pressure 110/71 109/61 141/93 O2 Sat by Pulse 94 L 96 95 Oximetry EKG Findings - EKG Comments: EKG Findings:: EKG demonstrates electronic atrial pacemaker. Rate of 68. Urine vault 253. She has 96. QTC of 471. No acute ST segment elevations. Mild ST depression V4 through V6 Medical Decision Making - Medical Decision Making Was pt. sent in by a medical professional or institution (, PA, [employer], urgent care, hospital, or [facility]...) When possible be specific @ -[No] Did you speak to anyone other than the patient for history (EMS, parent, family, police, friend...)? What history was obtained from this source EMS Did you review nursing and triage notes (agree or disagree)? Why? @ -[I reviewed and agree with nursing and triage notes] Were old charts reviewed (outside hosp., previous admission, EMS record, old EKG, old radiological studies, urgent care reports/EKG's, [facility] records)? Report findings @ -[No old charts were reviewed] Differential Diagnosis (chest pain, altered mental status, abdominal pain women, abdominal pain men, vaginal bleeding, weakness, fever, dyspnea, syncope, headache, dizziness, GI bleed, back pain, seizure, CVA, palpatations, mental health)? MDM Differential Syncope: Valvular disease, hypertrophic cardiomyopathy, pulmonary embolism, tamponade, tachycardia, bradycardia, [place], hypovolemia, hemorrhage, dissection, anemia, intracranial hemorrhage, seizure, hypoglycemia, carbon monoxide poisoning this is not meant to be an all-inclusive list. EKG interpreted by me (3pts min.). yes X-rays interpreted by me (1pt min.). yes CT interpreted by me (1pt min.). yes U/S interpreted by me (1pt. min.). @ -[None done] What testing was considered but not performed or refused? (CT, X-rays, U/S, labs)? Why? echo - patient refusing admission for further testing What meds were considered but not given or refused? Why? IV fluids - patient has ortho static hypotension but also signs of third spacing Did you discuss the management of the patient with other professionals (juan canseco i.e. , PA, [employer], lab, RT, psych nurse, social studies department chair, carbonation tester, teacher, air force senior officer, director of casework)? Give summary @ -[No] Was smoking cessation discussed for >3mins.? @ -[No] Was critical care preformed (if so, how long)? @ -[No] Were there social determinants of health that impacted care today? How? (Homelessness, low income, unemployed, alcoholism, drug addiction, transp ortation, low edu. Level, literacy, decrease access to med. care, custodial, rehab)? @ -[No] Was there de-escalation of care discussed even if they declined (Discuss DNR or withdrawal of care, Hospice)? DNR status @ -[No] What co-morbidities impacted this encounter? (DM, HTN, Smoking, COPD, CAD, Cancer, CVA, ARF, Chemo, Hep., AIDS, mental health diagnosis, sleep apnea, morbid obesity)? htn, hld, cad with cabg Was patient admitted / discharged? Hospital course, mention meds given and rout e, prescriptions, significant lab abnormalities, going to OR and other pertinent info. Upon arrival patient was placed into room 1. A thorough history and physical exam was performed. IV access established laboratory says her conducted. D- dimer markedly elevated at 3.18. Patient sent for a CT of his chest after chest x-ray was performed. CT of his chest demonstrates possible chronic PE. Mild congestive heart failure. Results are discussed the patient. I did recommend a dmission for IV diuresis. He'll be continued on his Eliquis for the PE. Patient is not agreeable with this. He is awake, alert and capable of answering some questions. He is adamant that he wants to go home at this time. is at bedside and attempts to persuade him to stay however patient is adamant that he will go home at this time. He is aware of the risks of leaving including incomplete evaluation. Patient understands this. He states he will continue taking his medications as directed and follow-up with his doctors. I warned the patient any he needs to return to the emergency room should he be agreeable for further workup. Patient discharged home with a guarded prognosis Undiagnosed new problem with uncertain prognosis? yes Drug Therapy requiring intensive monitoring for toxicity (Heparin, Nitro, Insulin, Cardizem)? @ -[No] Were any procedures done? @ -[No] Diagnosis/symptom? presycnope, chf exacerbation, hypotension Acute, or Chronic, or Acute on Chronic? acute Uncomplicated (without systemic symptoms) or Complicated (systemic symptoms)? complicated Side effects of treatment? volume overload with fluids, melanie/hypotension with diueresis Exacerbation, Progression, or Severe Exacerbation? exacerbation Poses a threat to life or bodily function? How? (Chest pain, [place], [place], pneumonia, PE, COPD, DKA, ARF, appy, cholecystitis, CVA, Diverticulitis, Homicidal, Suicidal, threat to staff... and all critical care pts) yes - Lab Data Result diagrams: 03/24/22 10:51 03/24/22 10:51 Lab Results 03/24/22 03/24/22 03/24/22 Range/Units 10:51 10:51 10:51 WBC 8.9 (3.8-10.6) k/uL RBC 4.83 (4.30-5.90) m/uL Hgb 14.8 (13.0-17.5) gm/dL Hct 45.5 (39.0-53.0) % MCV 94.1 (80.0-100.0) fL MCH 30.6 (25.0-35.0) pg MCHC 32.5 (31.0-37.0) g/dL RDW 13.5 (11.5-15.5) % Plt Count 229 (150-450) k/uL MPV 7.5 Neutrophils % 86 % Lymphocytes % 8 % Monocytes % 4 % Eosinophils % 1 % Basophils % 0 % Neutrophils # 7.6 (1.3-7.7) k/uL Lymphocytes # 0.7 L (1.0-4.8) k/uL Monocytes # 0.3 (0-1.0) k/uL Eosinophils # 0.1 (0-0.7) k/uL Basophils # 0.0 (0-0.2) k/uL PT 14.2 H (9.0-12.0) sec INR 1.4 H (<1.2) APTT 27.5 (22.0-30.0) sec D-Dimer 3.18 H (<0.60) mg/L FEU Sodium 135 L (137-145) mmol/L Potassium 4.0 (3.5-5.1) mmol/L Chloride 99 (98-107) mmol/L Carbon Dioxide 25 (22-30) mmol/L Anion Gap 11 mmol/L BUN 25 H (9-20) mg/dL Creatinine 1.25 (0.66-1.25) mg/dL Est GFR (CKD-EPI)AfAm 63 (>60 ml/min/1.73 sqM) Est GFR (CKD-EPI)NonAf 54 (>60 ml/min/1.73 sqM) Glucose 172 H (74-99) mg/dL Lactic Ac Sepsis Rflx Plasma Lactic Acid Aydin (0.7-2.0) mmol/L Calcium 8.1 L (8.4-10.2) mg/dL Total Bilirubin 1.3 (0.2-1.3) mg/dL AST 42 (17-59) U/L ALT 25 (4-49) U/L Alkaline Phosphatase 107 (38-126) U/L Troponin I (0.000-0.034) ng/mL NT-Pro-B Natriuret Pep pg/mL Total Protein 7.7 (6.3-8.2) g/dL Albumin 3.5 (3.5-5.0) g/dL 03/24/22 03/24/22 03/24/22 Range/Units 10:51 10:51 10:51 WBC (3.8-10.6) k/uL RBC (4.30-5.90) m/uL Hgb (13.0-17.5) gm/dL Hct (39.0-53.0) % MCV (80.0-100.0) fL MCH (25.0-35.0) pg MCHC (31.0-37.0) g/dL RDW (11.5-15.5) % Plt Count (150-450) k/uL MPV Neutrophils % % Lymphocytes % % Monocytes % % Eosinophils % % Basophils % % Neutrophils # (1.3-7.7) k/uL Lymphocytes # (1.0-4.8) k/uL Monocytes # (0-1.0) k/uL Eosinophils # (0-0.7) k/uL Basophils # (0-0.2) k/uL PT (9.0-12.0) sec INR (<1.2) APTT (22.0-30.0) sec D-Dimer (<0.60) mg/L FEU Sodium (137-145) mmol/L Potassium (3.5-5.1) mmol/L Chloride (98-107) mmol/L Carbon Dioxide (22-30) mmol/L Anion Gap mmol/L BUN (9-20) mg/dL Creatinine (0.66-1.25) mg/dL Est GFR (CKD-EPI)AfAm (>60 ml/min/1.73 sqM) Est GFR (CKD-EPI)NonAf (>60 ml/min/1.73 sqM) Glucose (74-99) mg/dL Lactic Ac Sepsis Rflx Plasma Lactic Acid Aydin 5.2 H* (0.7-2.0) mmol/L Calcium (8.4-10.2) mg/dL Total Bilirubin (0.2-1.3) mg/dL AST (17-59) U/L ALT (4-49) U/L Alkaline Phosphatase (38-126) U/L Troponin I 0.015 (0.000-0.034) ng/mL NT-Pro-B Natriuret Pep 3390 pg/mL Total Protein (6.3-8.2) g/dL Albumin (3.5-5.0) g/dL 03/24/22 Range/Units 11:22 WBC (3.8-10.6) k/uL RBC (4.30-5.90) m/uL Hgb (13.0-17.5) gm/dL Hct (39.0-53.0) % MCV (80.0-100.0) fL MCH (25.0-35.0) pg MCHC (31.0-37.0) g/dL RDW (11.5-15.5) % Plt Count (150-450) k/uL MPV Neutrophils % % Lymphocytes % % Monocytes % % Eosinophils % % Basophils % % Neutrophils # (1.3-7.7) k/uL Lymphocytes # (1.0-4.8) k/uL Monocytes # (0-1.0) k/uL Eosinophils # (0-0.7) k/uL Basophils # (0-0.2) k/uL PT (9.0-12.0) sec INR (<1.2) APTT (22.0-30.0) sec D-Dimer (<0.60) mg/L FEU Sodium (137-145) mmol/L Potassium (3.5-5.1) mmol/L Chloride (98-107) mmol/L Carbon Dioxide (22-30) mmol/L Anion Gap mmol/L BUN (9-20) mg/dL Creatinine (0.66-1.25) mg/dL Est GFR (CKD-EPI)AfAm (>60 ml/min/1.73 sqM) Est GFR (CKD-EPI)NonAf (>60 ml/min/1.73 sqM) Glucose (74-99) mg/dL Lactic Ac Sepsis Rflx Y Plasma Lactic Acid Aydin (0.7-2.0) mmol/L Calcium (8.4-10.2) mg/dL Total Bilirubin (0.2-1.3) mg/dL AST (17-59) U/L ALT (4-49) U/L Alkaline Phosphatase (38-126) U/L Troponin I (0.000-0.034) ng/mL NT-Pro-B Natriuret Pep pg/mL Total Protein (6.3-8.2) g/dL Albumin (3.5-5.0) g/dL Disposition Clinical Impression: Syncope, CHF (congestive heart failure), Lactic acidosis Disposition: HOME SELF-CARE Condition: Stable Instructions (If sedation given, give patient instructions): Syncope (ED) Additional Instructions: I recommended hospital admission. Please follow-up with your doctor as soon as possible. If you would like to return to the emergency department for further evaluation, please do so. Is patient prescribed a controlled substance at d/c from ED?: No Referrals: John Arellano MD [Primary Care Provider] - 1-2 days Time of Disposition: 13:55
[2022-03-24 18:44] VITALS: BP 141/93; PULSE 72; RESP 22; TEMP 98.7
== END 2022-03-24 14:05 | disposition home or self-care (01) ==
LOC: EC 10:34
DX: R55 Syncope and collapse (principal); I11.0 Hypertensive heart disease with heart failure; I50.9 Heart failure, unspecified; E78.5 Hyperlipidemia, unspecified; M19.90 Unspecified osteoarthritis, unspecified site; Z88.0 Allergy status to penicillin; Z88.6 Allergy status to analgesic agent; Z88.8 Allergy status to other drugs, medicaments and biological substances; Z79.899 Other long term (current) drug therapy
CPT/HCPCS: 36415; 93005; 85379; 83880; 80053; 83605; 84484; 85025; 85610; 85730; 71046; 71275; 99285; Q9967

== ENCOUNTER → 2022-05-11 | Outpatient (CLI) | payer MEDICARE ==
[2022-05-11 15:25] LABS: HCT 45.6 % (39.6-50.0); HGB 14.6 g/dL (13.0-17.0); MCH 31.1 pg (27.0-32.0); Mean Platelet Volume 9.5 fL (9.5-12.2); NRBC Per 100 WBC 0 /100 WBCS (0.0-0.0); Platelet Count 301 X 10*3/uL (140-440); RDW 15.2 % (11.5-14.5); WBC 10.51 X 10*3/uL (4.50-10.00)
[2022-05-11 16:31] LABS: African American GFR (CKD) 72.1 (60.0-200.0); Anion Gap 8.4 mmol/L (10.00-18.00); Blood Urea Nitrogen 16.1 mg/dL (9.0-27.0); Carbon Dioxide 30.6 mmol/L (20.0-27.5); Non-African American GFR(CKD) 62.2 (60.0-200.0); Potassium 4.4 mmol/L (3.5-5.5)
== END | disposition home or self-care (01) ==
LOC: LABPAT 10:52
PROVIDERS: ATTEND Internal Medicine Clinical Cardiac Electrophysiology
DX: Z01.812 Encounter for preprocedural laboratory examination (principal); I47.20 Ventricular tachycardia, unspecified
CPT/HCPCS: 80051; 82565; 84520; 85027

== ENCOUNTER 2022-05-16 06:51 | Day surgery (SDC) | payer MEDICARE ==
[2022-05-12 11:04] VITALS: BMI 30.1
[~2022-05-16 06:51] MED LIST: CLINDAMYCIN 900 MG in DEXTROSE 5% IN WATER 50 ML IVPB ONE; VANCOMYCIN 1,250 MG in SODIUM CHLORIDE 0.9% 250 ML IVPB ONE
[2022-05-16] MEDS ORDERED: SODIUM CHLORIDE 0.9% 1,000 ML IV ONE (07:04)
[2022-05-16] MEDS ORDERED: diphenhydrAMINE 50 MG/ML 1 ML VIAL IVP STA (08:13)
[2022-05-16] MEDS ORDERED: MIDAZOLAM 2 MG/2 ML VIAL ONE (09:47)
[2022-05-16] MEDS ORDERED: PROPOFOL 10 MG/ML 20 ML VIAL IV ONE (09:47)
[2022-05-16] MEDS ORDERED: PHENYLEPHRINE-0.9% NACL SYG 1,000 MCG/10 ML SYRINGE ONE (09:47)
[2022-05-16] MEDS ORDERED: lisinopriL 10 MG TAB ONE (09:47)
[2022-05-16] MEDS ORDERED: IOPAMIDOL-370 100ML BTL INJ ONE (10:01)
[2022-05-16] MEDS ORDERED: LIDOCAINE 1% INJ 10MG/ML (20 ML MDV) ONE ×2 (10:18→11:20)
[2022-05-16] MEDS ORDERED: DAPTOmycin 500 MG in SODIUM CHLORIDE 0.9% 50 ML IVPB STA (10:25)
[2022-05-16] MEDS ORDERED: LIDOCAINE 1% INJ 10MG/ML (30 ML VIAL-PF) SQ ONE (10:26)
--- NOTE | 2022-05-16 11:05 | P.EPPROC ---
- EP Procedure Note Electrophysiology Procedure Note: Diagnosis Syncope Bradycardia secondary to heart block RV pacing percentage greater than 70%, dual-chamber pacemaker in situ at this time LifeVest prescribed Recurrent nonsustained ventricular tachycardia on pacemaker interrogation 1 long episode of fast VT documented on pacemaker telemetry Moderate hematoma right femoral artery noted on preop assessment Details Patient was evaluated in the [facility] He was complaining of mild orthopnea He the hematoma in the right groin secondary to recent coronary angiogram with A decision was made to perform an EP study for syncope evaluation along with LV function assessment as well as the left upper extremity venogram and cinefluoroscopy of the leads Patient was brought to the EP lab in a fasting state Cinefluoroscopy of the leads revealed a screw-in active fix RV lead in the RV apex Active fix lead in the right atrial appendage Pacemaker generator left pectoral Left upper extremity venogram performed 15 mL IV dye injected Mild stenosis in the left axillary/subclavian junction Patent innominate vein Venous sheaths placed in the right femoral vein Moderate hematoma with bruising in relation to the right femoral artery Intracardiac echocardiography performed Globally reduced LV systolic function ejection fraction 35% No clear-cut wall motion abnormality identified MT interval 260 ms, QRS 112 ms, sinus cycle length 1000 ms Intermittent RV pacing QT interval 511 ms Pacemaker interrogated Greater than 70% RV pacing noted RV catheter placed in the right ventricle septum Ventricular extra stimulation performed With double extrastimuli at 600/310/260 ms, sustained ventricular tachycardia was induced VT morphology: Right bundle branch block type, upright QRS is in the inferior leads, negative QRS in lead 1 consistent with high lateral focus of VT in the left ventricle Antitachycardia pacing used to terminate the hemodynamically unstable, sustained VT Plan In view of easily inducible VT and a dual-chamber pacemaker in situ along with moderate hematoma in association of the right femoral artery, a decision was made to proceed with an upgrade to a biventricular ICD today instead of VT ablation, to avoid high-dose IV heparin today 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 His RV pacing percentage is greater than 70% secondary to intermittent heart block His left ventricular ejection fraction on echo is 35% He is on metoprolol and losartan as well as Lasix for CHF He is on atorvastatin for atherosclerotic disease Plan Extraction of the RV lead Implantation of an ICD lead and a left bundle/left ventricular vein lead / Bi V ICD implant for secondary prevention of sudden cardiac in this elderly gentleman with syncope runs of fast nonsustained ventricular tachycardia him a ischemic cardio myopathy, old [place], reduced LV systolic function of 35% and easily inducible sustained monomorphic ventricular tachycardia at EP study Subsequently VT ablation will be performed In the interim antiarrhythmic drug therapy will be recommended, sotalol Avoid IV heparin today
--- NOTE | 2022-05-16 11:13 | P.HPCAR ---
History of Present Illness This is Dr. 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 We have documented long runs of nonsustained but fast VT on dual-chamber pacemaker telemetry/interrogation He underwent coronary angiography to evaluate for any progression of coronary artery disease recently He has developed a moderate hematoma in the right femoral artery He complains of mild orthopnea when I laid him flat on examination bed He also complaining of shortness of breath and exertion but no angina like symptoms His recent coronary angiography did not show progression of coronary artery disease and no coronary intervention was performed The second interrogation today revealed intermittent heart block with greater than 70% RV pacing ROS: No fever chills or rigors, no cough, phlegm or expectoration, no nausea, vomiting or diarrhea, no hematuria, dysuria, no musculoskeletal complaints, no strokes or seizures, no skin lesions. EXAMINATION: Afebrile 97F, pulse rate in the 70s, respirations 16 and blood pressure 142/75 mmHg Breath sounds are reduced bilaterally no crackles no rhonchi Heart sounds S1 and S2 are normal no murmurs No lower extremity edema Mild orthopnea REVIEW OF LABS, ECG & MEDICAL DATA Currently on guideline directed medical treatment with beta blockers and losartan as well as statins He takes Rivaroxaban for his history of DVT in the past Physical Exam Vitals: Vital Signs Temp Pulse Resp BP Pulse Ox 05/16/22 07:16 97 F L 77 16 122/75 95 Intake and Output 05/15/22 05/16/22 05/16/22 22:59 06:59 14:59 Intake Total 200 Balance 200 Intake: IV 50 Intake, IV Titration 150 Amount Vancomycin 1,250 mg In 150 Sodium Chloride 0.9% 250 ml @ 125 mls/hr IVPB ONCE ONE Rx#:[id number] Other: Weight 87.1 kg Past Medical History Past Medical History: Hyperlipidemia, Hypertension, Osteoarthritis (OA) Additional Past Medical History / Comment(s): ABDOMINAL ANEURYSM, SNORES- STATES MILD BREATHING PROBLEMS AT NIGHT. , DIFFICULTY SWALLOWING- FEELS LIKE FOOD GETS STUCK. See Dr. Phan's H&P. Deepa 2 years ago. History of Any Multi-Drug Resistant Organisms: None Reported Past Surgical History: Cholecystectomy, Coronary Bypass/CABG, Tonsillectomy Additional Past Surgical History / Comment(s): CABG X6 (2009), pacemaker in 2020 Past Anesthesia/Blood Transfusion Reactions: No Reported Reaction Smoking Status: Former smoker - Past Family History Mother Family Medical History: Cancer Additional Family Medical History / Comment(s): OVARIAN WITH METS. Physical Examination Vital Signs Temp Pulse Resp BP Pulse Ox 05/16/22 07:16 97 F L 77 16 122/75 95 Intake and Output 05/15/22 05/16/22 05/16/22 22:59 06:59 14:59 Intake Total 200 Balance 200 Intake: IV 50 Intake, IV Titration 150 Amount Vancomycin 1,250 mg In 150 Sodium Chloride 0.9% 250 ml @ 125 mls/hr IVPB ONCE ONE Rx#:[id number] Other: Weight 87.1 kg Results Current Medications Generic Name Dose Route Start Last Admin Trade Name Freq PRN Reason Stop Dose Admin Sodium Chloride 1,000 mls @ 20 mls/hr 05/16/22 05:50 Saline 0.9% IV 06/15/22 05:51 .Q24H ALBER Intake and Output 05/15/22 05/16/22 05/16/22 22:59 06:59 14:59 Intake Total 200 Balance 200 Intake: IV 50 Intake, IV Titration 150 Amount Vancomycin 1,250 mg In 150 Sodium Chloride 0.9% 250 ml @ 125 mls/hr IVPB ONCE ONE Rx#:[id number] Other: Weight 87.1 kg Patient Weight 05/17/22 06:59 Weight 87.1 kg
[2022-05-16] MEDS ORDERED: CLINDAMYCIN 600 MG in SODIUM CHLORIDE 0.9% IRRIG BTL 250 ML IRRIGATION ONE (11:20)
[2022-05-16] MEDS ORDERED: LIDOCAINE 1% INJ 10MG/ML (20 ML MDV) SQ ONE ×2 (11:31→11:48)
[2022-05-16] MEDS ORDERED: ACETAMINOPHEN TAB 325 MG TAB PO PRN (14:05)
[2022-05-16] MEDS ORDERED: ACETAMINOPHEN IV (For NPO) 1,000 MG in EMPTY BAG 1 BAG IVPB ONE (14:05)
--- NOTE | 2022-05-16 14:05 | P.EPPROC ---
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 VT morphology : Right bundle-branch block, QRS width 170 ms, MDI 35%, QS pattern of the VT-QRS in lead 1 Intermittent heart block with RV pacing of greater than 70%, patient has a dual- chamber pacemaker in situ Standard dual-chamber ICD will result in a high RV pacing percentage in the setting of reduced LV systolic function and chronic congestive heart failure Procedure Explantation of chronic dual-chamber pacemaker generator Lead extraction, chronic RV pacing lead Upgrade to a biventricular ICD with implantation of an ICD lead, LV lead and BiVventricular ICD generator LV/ biventricular ICD implantation New subfascial pocket to accommodate the new, larger generator Difficult coronary sinus anatomy with high thresholds in the posterior lateral tributaries, multiple tributaries tested Details Patient was brought to the EP lab in a fasting state. Written informed consent was obtained prior to the procedure. Conscious sedation provided by anesthesia team IV antibiotics administered. Including daptomycin ALLERGY to vancomycin noted with itching and redness Local anesthesia administered. A 4 cm incision made in the pectoral area. Subfascial pocket made. Venous access obtained Venous sheaths placed. Leads placed in the right heart Atrial lead chronically positioned the right atrial appendage. [facility], P waves 5 mV, pacing impedance 450 ohms and pacing threshold 1 warted 0.5 ms Chronic RV pacing lead. After the ICD lead was placed, the screw was retracted, and with counterclockwise rotation and gradual traction the lead was extracted from the right ventricle and taken out of the central circulation. 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 The main body of coronary sinus and the posterior lateral vein with 2 large tributaries heading inferiorly and inferolaterally originating from the CS os Posterior lateral vein was cannulated. Venogram performed to identify the true tributaries Very high thresholds noted in these veins distally consistent with old i nferolateral AK Name coronary sinus was accessed but diminutive anterior veins Therefore the posterior lateral vein that was heading inferior laterally, lower tributary was selected since it had better thresholds The lead tip was positioned in one of its branches for stability Best thresholds obtained in the proximal leads However on thresholds in both tributaries were high consistent with old inf erolateral AK Leads secured. Old pacemaker generator explanted. New biventricular ICD generator implanted, [facility] [facility] [place] heart failure device Biventricular ICDr device connected to the leads and placed in the new subfascial pocket Patient tolerated the procedure well without acute complications Long procedure Coronary sinus access was difficult, at the coronary sinus os the mean coronary sinus body and the posterior lateral vein drained separately Each of these was individually accessed to test all available veins since the patient high thresholds as well as intermittent diaphragmatic stimulation in the posterior lateral vein Anterior LV veins were diminutive Posterior lateral veins were large but with very high thresholds and intermittent diaphragmatic stimulation in the mid vessel Multiple veins with testing within multiple different tributaries to obtain the most secure position with best thresholds Lead tip was positioned in multiple different smaller tributaries to achieve stability and best thresholds while avoiding diaphragmatic stimulation
--- NOTE | 2022-05-16 14:57 | P.EPPROC ---
- EP Procedure Note Electrophysiology Procedure Note: Summary of procedures Patient was evaluated today. Please see admission in H&P Importantly he complained of mild orthopnea and he had a moderate-sized hematoma in relation to the right femoral artery He has a history of syncope and a dual-chamber pacemaker implanted 2 years back she shown runs of nonsustained ventricular tachycardia Underlying ischemic cardio myopathy Left upper extremity venogram revealed a patent left subclavian and innominate venous system Pacemaker interrogation revealed intermittent heart block with RV pacing of 70% with episodes of ventricular tachycardia Good atrial and RV thresholds Diagnostic EP study revealed easily inducible fast sustained VT at a cycle length of 300 ms originating from the lateral wall of the left ventricle In view of the hematoma in the right groin and his heart failure symptoms especially of orthopnea, a decision was made to proceed with a biventricular ICD with further maximization of heart failure medications The dual-chamber pacemaker generator and the chronic RV pacing lead was extracted A biventricular ICD was implanted with a new ICD lead, new LV lead and a new Biventricle ICD generator, [facility] [facility] Implantation of the LV lead took a longer time than usual. The coronary sinus bifurcated into the mean body and a large posterior lateral vein with to tributaries at the level of the CS os Anterior veins with diminutive and could not be used for LV lead placement Posterior lateral veins were large but very high thresholds distally In the mid body diaphragmatic stimulation noted Multiple different tributaries of the posterior lateral vein were cannulated to think the best position, most stable position without diaphragmatic stimulation and with the best possible LV threshold LV thresholds high in his veins. History of inferolateral KS Patient was treated with IV antibiotics He developed a reaction to vancomycin with itching and redness This was substituted with daptomycin From a medical standpoint we will switch to metoprolol succinate 100 mg by mouth daily Add sotalol 80 mg twice daily Repeat electrolytes and add spironolactone Continue losartan Continue Xarelto since he has a history of DVT and PE Continue statins VT ablation will be considered in 2-3 months for breakthrough episodes of VT on sotalol It was noted that the patient has severe sleep apnea with mild sedation
--- NOTE | 2022-05-16 15:11 | XR ---
EXAMINATION TYPE: XR chest 1V portable DATE OF EXAM: 05/16/2022 COMPARISON: 03/24/2022 HISTORY: Lead placement check TECHNIQUE: Single frontal view of the chest is obtained. FINDINGS: Heart is prominent and there is a cardiac device with postoperative change. Left lower lob e infiltrate and small effusion. Coarsened interstitium. Underlying COPD. Hypertrophic and degenerati ve change of the spine. Surgical clips in the right upper quadrant. IMPRESSION: Left lower lobe infiltrate and small pleural effusion.
[2022-05-16] MEDS: SODIUM CHLORIDE 0.9% 1,000 ML IV SCH (16:24)
[2022-05-16] MEDS: METOPROLOL SUCCINATE (ER) 100 MG TAB.ER.24H PO SCH (16:48)
[2022-05-16] MEDS: CLINDAMYCIN 900 MG in DEXTROSE 5% IN WATER 50 ML IVPB SCH ×4 (16:48→21:24)
[2022-05-16 18:01] LABS: African American GFR (CKD) >90 (>60 ml/min/1.73 sqM); Anion Gap 4 mmol/L; Blood Urea Nitrogen 14 mg/dL (9-20); Calcium 8.3 mg/dL (8.4-10.2); Carbon Dioxide 25 mmol/L (22-30); Chloride 109 mmol/L (98-107); Glucose 88 mg/dL (74-99); Non-African American GFR(CKD) 86 (>60 ml/min/1.73 sqM); Potassium 4.6 mmol/L (3.5-5.1); Sodium 138 mmol/L (137-145)
[2022-05-16 18:12] VITALS: RESP 18
[2022-05-16] MEDS: SOTALOL 80 MG TAB PO SCH (20:32)
[2022-05-16] MEDS ORDERED: ATORVASTATIN 40 MG TAB PO SCH (21:00)
[2022-05-17 06:27] VITALS: BP 131/77; PULSE 78; TEMP 97.8
[2022-05-17] MEDS: SODIUM CHLORIDE 0.9% 1,000 ML IV SCH (06:36)
[2022-05-17] MEDS: METOPROLOL SUCCINATE (ER) 100 MG TAB.ER.24H PO SCH (08:35)
[2022-05-17] MEDS: SOTALOL 80 MG TAB PO SCH (08:35)
[2022-05-17] MEDS ORDERED: FUROSEMIDE 20 MG TAB PO SCH (09:00)
[2022-05-17] MEDS ORDERED: LOSARTAN 50 MG TAB PO SCH (09:00)
--- NOTE | 2022-05-17 14:36 | P.DS ---
Providers Attending physician: Luis Phan Primary care physician: [facility] Course: Patient is doing well. He is sitting up comfortably in a chair No chest discomfort dizziness lightheadedness Minimal oozing Clear lungs Heart sounds are normal and regular Telemetry shows 1 run nonsustained ventricular tachycardia Impression Diagnostic EP study for syncope evaluation Very easily inducible fast sustained monomorphic ventricular tachycardia at a cycle length of 300 ms originating from the high lateral wall of the left ventricle Hematoma in the right groin in relation to his recent coronary angiogram via the right femoral artery VT ablation was deferred Instead a biventricular ICD was implanted with a new ICD lead and generator His old pacemaker lead was extracted and the pacemaker generator was explanted LV lead is the posterior lateral vein which has a separate ostium compared to the main coronary sinus os Complete heart block with RV pacing percentage of greater than 70% Ischemic cardiomyopathy ejection fraction 35% on intracardiac echo Atherosclerotic dilated abdominal aortic aneurysm Small fossa ovalis, thick septum ALLERGY to vancomycin, treated with daptomycin Suggest Patient,s device interrogation is within normal limits today I started on sotalol yesterday, 80 mg twice daily I made the following changes in his medications. Metoprolol tartrate is being discontinued Metoprolol succinate is being started at 100 mg by mouth daily at noontime I'm adding sotalol 80 mg twice daily in addition to metoprolol for suppression of ventricular tachycardia He will resume xarelto, has a history of DVT and PE He will continue all his other cardiac medications Device clinic follow-up in a week Follow-up with Dr. Luna If he has recurrent breakthrough episodes of ventricular tachycardia then I will proceed with VT ablation Hopefully by then right hematoma would have resolved completely The main issue that I anticipate during the EP study and ablation is his obstructive sleep apnea He has a small receded lower jaw which retracts back was when he lies supine resulting in severe obstruction Very intolerant of mild conscious sedation, which would be my preference of jackson mata during his VT ablation I asked him to see an oral surgeon or dentist who specializes in oral devices to help maintain his job position while sleeping He may need obstructive sleep apnea in addition to that I would like to avoid general anesthesia in this gentleman during his VT ablation Plan a detailed discussion with him and his regarding this Patient Condition at Discharge: Stable Plan - Discharge Summary Discharge Rx Participant: Yes New Discharge Prescriptions: Continue Atorvastatin [Lipitor] 40 mg PO HS Losartan Potassium 50 mg PO DAILY Rivaroxaban [Xarelto] 20 mg PO HS Metoprolol Succinate [Toprol XL] 100 mg PO DAILY Sotalol [Betapace] 80 mg PO BID Furosemide [Lasix] 20 mg PO DAILY Ubidecarenone [Co Q-10] 100 mg PO DAILY Discharge Medication List Atorvastatin [Lipitor] 40 mg PO HS 09/12/16 [History] Furosemide [Lasix] 20 mg PO DAILY 01/22/21 [History] Losartan Potassium 50 mg PO DAILY 01/22/21 [History] Rivaroxaban [Xarelto] 20 mg PO HS 01/22/21 [History] Ubidecarenone [Co Q-10] 100 mg PO DAILY 04/21/22 [History] Metoprolol Succinate [Toprol XL] 100 mg PO DAILY 05/17/22 [History] Sotalol [Betapace] 80 mg PO BID 05/17/22 [History] Follow up Appointment(s)/Referral(s): Keyona Luna MD [STAFF PHYSICIAN] - 1 Week Patient Instructions/Handouts: Implantable Cardioverter Defibrillator (GEN), Electrophysiology Study (GEN) Discharge Disposition: HOME SELF-CARE
== END 2022-05-17 15:06 | disposition home or self-care (01) ==
LOC: CATHEP 06:51 → 6NMEDSUR 13:27 → CATHEP 05-17 15:06
PROVIDERS: ATTEND Internal Medicine Clinical Cardiac Electrophysiology
DX: I47.20 Ventricular tachycardia, unspecified (principal); I25.5 Ischemic cardiomyopathy; I97.638 Postprocedural hematoma of a circulatory system organ or structure following other circulatory system procedure; Y83.1 Surgical operation with implant of artificial internal device as the cause of abnormal reaction of the patient, or of later complication, without mention of misadventure at the time of the procedure; I44.2 Atrioventricular block, complete; I25.10 Atherosclerotic heart disease of native coronary artery without angina pectoris; I11.0 Hypertensive heart disease with heart failure; I50.9 Heart failure, unspecified; I25.2 Old myocardial infarction; Z95.0 Presence of cardiac pacemaker; Z86.711 Personal history of pulmonary embolism; Z86.718 Personal history of other venous thrombosis and embolism; I45.10 Unspecified right bundle-branch block; Z79.01 Long term (current) use of anticoagulants; Z79.899 Other long term (current) drug therapy; Z88.1 Allergy status to other antibiotic agents; I49.5 Sick sinus syndrome; Z95.1 Presence of aortocoronary bypass graft; I48.91 Unspecified atrial fibrillation; I71.40 Abdominal aortic aneurysm, without rupture, unspecified; G47.33 Obstructive sleep apnea (adult) (pediatric); I35.0 Nonrheumatic aortic (valve) stenosis; I49.01 Ventricular fibrillation; F17.210 Nicotine dependence, cigarettes, uncomplicated; Z88.0 Allergy status to penicillin
CPT/HCPCS: 33270; 93662; 93620; 33225; 33249; 33234; 80048; 84443; 71045; C1769 ×5; C1894; C1760; C1882; C1892 ×2; C1730 ×2; C1887; C1759; C1900; C1777; J2250; J3370; J1200; J2001 ×2; J0131; J2370; J2704; Q9967; J0878

== ENCOUNTER → 2023-03-28 | Outpatient (CLI) | payer MEDICARE ==
[2023-03-28 11:48] LABS: African American GFR (CKD) 70 (>60 ml/min/1.73 sqM); Blood Urea Nitrogen 17 mg/dL (9-20); Non-African American GFR(CKD) 61 (>60 ml/min/1.73 sqM)
--- NOTE | 2023-03-28 12:53 | CT ---
EXAMINATION TYPE: CT soft tissue neck w con DATE OF EXAM: 03/28/2023 COMPARISON: None HISTORY: Neck mass feels that something caught in throat CT DLP: 695.76 mGycm CONTRAST: Patient injected with 100 mL of Isovue 300. TECHNIQUE: Axial images at 3 mm thick sections. Reconstructed images in the coronal plane and sagitt al plane are reviewed. FINDINGS: There is a large air-filled structure with a debris-filled fluid level in the left prevertebral space at the level of the hypopharynx. This is displacing structures away from this finding. This area ernesto sures 4.8 x 4.7 cm. This appears to be above the level of the proximal esophageal sphincter at the th oracic inlet. Opening into the hypopharynx may be present series 3 image 56. The esophagus below this level appears normal. No wall thickening nor dilatation within the [id number] is evident. The div erticulum most likely within the differential. Abscess is less likely without a thickened wall or oth er infectious symptoms. Limited CT sections are obtained the lung apices. Some mild fibrosis may be present within the upper lung barrera. The torus tubarius and fossa of Rosenmuller are normal. Pressure Sealer And Tester spaces are normal. Paranasal sin uses and mastoid air cells are clear. Parotid glands appear normal and symmetrical. Submandibular glands, are normal. Parapharyngeal spac es are normal. No suspicious adenopathy is evident including near the suspected diverticulum. There may be some subtle asymmetry of the vocal cords is slight prominence of the left vocal cord com pared to the right. This could be related to positioning within the gantry. Direct visualization may be useful. Thyroid as visualized is normal. Degenerative changes are within the cervical spine. There is loss of disc height through multiple lev els including posteriorly C3-4 and diffuse C5-6 C6-7. Anterior vertebral body spurring is noted. Ther e is exaggeration of the thoracic kyphosis. IMPRESSION: 1. 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 2. Subtle asymmetry within the left vocal cord. Direct visualization recommended.
== END | disposition home or self-care (01) ==
LOC: RADCTMAIN 11:12
PROVIDERS: ATTEND Otolaryngology
DX: J38.3 Other diseases of vocal cords (principal); R22.1 Localized swelling, mass and lump, neck
CPT/HCPCS: 82565; 84520; 70491; 36415; Q9967

== ENCOUNTER 2024-03-08 13:54 | Observation (INO) | payer OTHER, MEDICARE ==
[2024-03-08 15:04] LABS: Basophils % (A) 0 %; Eosinophils # (A) 0.1 k/uL (0-0.7); Eosinophils % (A) 2 %; HCT 47.4 % (39.0-53.0); Lymphocytes # (A) 1.1 k/uL (1.0-4.8); Lymphocytes % (A) 15 %; MCH 30.2 pg (25.0-35.0); MCHC 31.6 g/dL (31.0-37.0); MCV 95.4 fL (80.0-100.0); Mean Platelet Volume 7.8; Monocytes # (A) 0.3 k/uL (0-1.0); Monocytes % (A) 4 %; Neutrophils % (A) 78 %; Platelet Count 261 k/uL (150-450); RBC 4.97 m/uL (4.30-5.90); RDW 15.6 % (11.5-15.5); WBC 7.7 k/uL (3.8-10.6)
[2024-03-08 15:17] LABS: INR 2.1 (<1.2); Prothrombin Time 21.3 sec (10.0-12.5)
[2024-03-08 15:27] LABS: ALT 35 U/L (4-49); AST 50 U/L (17-59); African American GFR (CKD) 58 (>60 ml/min/1.73 sqM); Albumin 3.7 g/dL (3.5-5.0); Alkaline Phosphatase 171 U/L (38-126); Anion Gap 10 mmol/L; Blood Urea Nitrogen 26 mg/dL (9-20); Calcium 9.3 mg/dL (8.4-10.2); Carbon Dioxide 26 mmol/L (22-30); Chloride 102 mmol/L (98-107); Glucose 120 mg/dL (74-99); Magnesium 1.7 mg/dL (1.6-2.3); Non-African American GFR(CKD) 50 (>60 ml/min/1.73 sqM); Potassium 4.3 mmol/L (3.5-5.1); Sodium 138 mmol/L (137-145); Total Bilirubin 1.6 mg/dL (0.2-1.3); Total Protein 8.2 g/dL (6.3-8.2)
--- NOTE | 2024-03-08 15:39 | XR ---
EXAMINATION TYPE: XR chest 2V DATE OF EXAM: 03/08/2024 3:29 PM COMPARISON: 05/16/2022 CLINICAL INDICATION: Male, 83 years old with history of dysrhythmia, , TECHNIQUE: AP and lateral views FINDINGS: Left anterior chest wall AICD generator with right atrial, right ventricular, and coronary sinus lead s. Surgical clips of the left base of the neck. Heart borderline in size. Atherosclerotic calcificati ons throughout the thoracic aorta. Diffuse interstitial and vascular density. No sizable pleural effu margi seen. Median sternotomy wires with post-CABG clips. IMPRESSION: Diffuse interstitial opacities could reflect CHF with mild interstitial pulmonary edema versus atypic al pneumonias. [facility], , 03/08/2024 3:37 PM
[2024-03-08] MEDS ORDERED: NALOXONE 0.4 MG/ML 1 ML VIAL IV PRN (17:24)
--- NOTE | 2024-03-08 17:24 | ED ---
Arrhythmia/Palpitations HPI - General Chief Complaint: Arrhythmia/Palpitations Stated Complaint: oxygen level in low Time Seen by Provider: 03/08/24 14:26 Source: patient, family Mode of arrival: wheelchair Limitations: no limitations - History of Present Illness Initial Comments: 83-year-old male with past medical history of hypertension, hyperlipidemia, coronary artery bypass with pacemaker who presents to the emergency department with a low heart rate and near syncope. Patient states that he follows with Dr. Luna. Recently the patient had a change in his metoprolol dosing. He states that he was told his pacemaker is not working the way it should and because of this reason they needed to increase his Lopressor. Patient previously took 50 mg once a day. He was increased to 75 mg 3 times a day. States that now he feels lightheaded like he is get a pass out at any moment. His symptoms were significant today while he was sitting down at home. He did check his heart rate and it was noted to be in the 30s. He felt short of breath. He called his primary care doctor who instructed him to come into the hospital. Patient den ies any chest pain. No lower extremity swelling. Patient was prescribed oxygen however returned it because he states he did not wear no 4 months time. No fevers, chills or cough. No other alleviating, precipitating modifying factors - Related Data Home Medications Medication Instructions Recorded Confirmed Atorvastatin [Lipitor] 40 mg PO HS 09/12/16 03/08/24 Furosemide [Lasix] 20 mg PO DAILY 01/22/21 03/08/24 Losartan Potassium 50 mg PO DAILY 01/22/21 03/08/24 Rivaroxaban [Xarelto] 20 mg PO HS 01/22/21 03/08/24 Ubidecarenone [Co Q-10] 100 mg PO DAILY 04/21/22 03/08/24 Albuterol Inhaler [Ventolin Hfa 2 puff INHALATION RT-Q6H PRN 03/08/24 03/08/24 Inhaler] Metoprolol Tartrate [Lopressor] 75 mg PO TID 03/08/24 03/08/24 [place]-3/Dha/Epa/Fish Oil [Fish Oil 1 cap PO DAILY 03/08/24 03/08/24 500 mg Softgel] Sertraline [Zoloft] 25 mg PO DAILY 03/08/24 03/08/24 Allergies Allergy/AdvReac Type Severity Reaction Status Date / Time Penicillins AdvReac Anaphylaxis Verified 03/08/24 17:20 vancomycin AdvReac Itching Verified 03/08/24 17:20 Review of Systems ROS Statement: Those systems with pertinent positive or pertinent negative responses have been documented in the HPI. ROS Other: All systems not noted in ROS Statement are negative. Past Medical History Past Medical History: Hyperlipidemia, Hypertension, Osteoarthritis (OA) Additional Past Medical History / Comment(s): ABDOMINAL ANEURYSM, SNORES- STATES MILD BREATHING PROBLEMS AT NIGHT. , DIFFICULTY SWALLOWING- FEELS LIKE FOOD GETS STUCK. See Dr. Phan's H&P. Shingles 2 years ago. History of Any Multi-Drug Resistant Organisms: None Reported Past Surgical History: Cholecystectomy, Coronary Bypass/CABG, Tonsillectomy Additional Past Surgical History / Comment(s): CABG X6 (2009), pacemaker in 2020 Past Anesthesia/Blood Transfusion Reactions: No Reported Reaction Past Psychological History: No Psychological Hx Reported Smoking Status: Former smoker - Past Family History Mother Family Medical History: Cancer Additional Family Medical History / Comment(s): OVARIAN WITH METS. General Exam Limitations: no limitations Course Vital Signs 03/08/24 03/08/24 03/08/24 14:04 14:25 14:39 Temperature 98 F Pulse Rate 36 L 67 Pulse Rate [ 37 L Bait Man ] Respiratory 26 H 18 Rate Blood Pressure 128/71 124/77 O2 Sat by Pulse 92 L Oximetry 03/08/24 03/08/24 15:43 16:31 Temperature Pulse Rate 72 80 Pulse Rate [ Bait Man ] Respiratory 16 16 Rate Blood Pressure 147/104 130/100 O2 Sat by Pulse 98 95 Oximetry Medical Decision Making - Medical Decision Making Was pt. sent in by a medical professional or institution (, PA, DIRECTOR IT, urgent care, hospital, or prison...) When possible be specific @ -[No] Did you speak to anyone other than the patient for history (EMS, parent, family, police, friend...)? What history was obtained from this source @ -[No] Did you review nursing and triage notes (agree or disagree)? Why? @ -[I reviewed and agree with nursing and triage notes] Were old charts reviewed (outside hosp., previous admission, EMS record, old EKG, old radiological studies, urgent care reports/EKG's, prison records)? Report findings @ -[No old charts were reviewed] Differential Diagnosis (chest pain, altered mental status, abdominal pain women, abdominal pain men, vaginal bleeding, weakness, fever, dyspnea, syncope, headache, dizziness, GI bleed, back pain, seizure, CVA, palpatations, mental h ealth, musculoskeletal)? @ -[not applicable] EKG interpreted by me (3pts min.). @ -Yes and demonstrates intermittent AV pacemaker. Rate of 75. NM interval 190. QRS 172. QTc of 525. PVCs in a bigeminy rhythm. No acute ST segment elevations. Pacemaker appears to capture appropriately X-rays interpreted by me (1pt min.). @ -[None done] CT interpreted by me (1pt min.). @ -[None done] U/S interpreted by me (1pt. min.). @ -[None done] What testing was considered but not performed or refused? (CT, X-rays, U/S, labs)? Why? @ -[None] What meds were considered but not given or refused? Why? @ -[None] Did you discuss the management of the patient with other professionals (professionals i.e. , PA, DIRECTOR IT, lab, RT, psych nurse, social media strategist, sample paster, teacher, staff nuclear weapons officer, case therapist)? Give summary @ -[No] Was smoking cessation discussed for >3mins.? @ -[No] Was critical care preformed (if so, how long)? @ -[No] Were there social determinants of health that impacted care today? How? (Homelessness, low income, unemployed, alcoholism, drug addiction, transportation, low edu. Level, literacy, decrease access to med. care, usp, rehab)? @ -[No] Was there de-escalation of care discussed even if they declined (Discuss DNR or withdrawal of care, Hospice)? DNR status @ -[No] What co-morbidities impacted this encounter? (DM, HTN, Smoking, COPD, CAD, Cancer, CVA, ARF, Chemo, Hep., AIDS, mental health diagnosis, sleep apnea, morbid obesity)? @ -[None] Was patient admitted / discharged? Hospital course, mention meds given and route, prescriptions, significant lab abnormalities, going to OR and other pertinent info. @ -[hospital course] Undiagnosed new problem with uncertain prognosis? @ -[No] Drug Therapy requiring intensive monitoring for toxicity (Heparin, Nitro, In sulin, Cardizem)? @ -[No] Were any procedures done? @ -[No] Diagnosis/symptom? @ -[default] Acute, or Chronic, or Acute on Chronic? @ -[default] Uncomplicated (without systemic symptoms) or Complicated (systemic symptoms)? @ -[default] Side effects of treatment? @ -[No] Exacerbation, Progression, or Severe Exacerbation? @ -[No] Poses a threat to life or bodily function? How? (Chest pain, USA, ID, pneumonia, PE, COPD, DKA, ARF, appy, cholecystitis, CVA, Diverticulitis, Homicidal, Suicidal, threat to staff... and all critical care pts) @ -[No] - Lab Data Result diagrams: 03/08/24 14:52 03/08/24 14:52 Lab Results 03/08/24 03/08/24 03/08/24 Range/Units 14:52 14:52 14:52 WBC 7.7 (3.8-10.6) k/uL RBC 4.97 (4.30-5.90) m/uL Hgb 15.0 (13.0-17.5) gm/dL Hct 47.4 (39.0-53.0) % MCV 95.4 (80.0-100.0) fL MCH 30.2 (25.0-35.0) pg MCHC 31.6 (31.0-37.0) g/dL RDW 15.6 H (11.5-15.5) % Plt Count 261 (150-450) k/uL MPV 7.8 Neutrophils % 78 % Lymphocytes % 15 % Monocytes % 4 % Eosinophils % 2 % Basophils % 0 % Neutrophils # 6.0 (1.3-7.7) k/uL Lymphocytes # 1.1 (1.0-4.8) k/uL Monocytes # 0.3 (0-1.0) k/uL Eosinophils # 0.1 (0-0.7) k/uL Basophils # 0.0 (0-0.2) k/uL PT 21.3 H (10.0-12.5) sec INR 2.1 H (<1.2) APTT 30.0 (22.0-30.0) sec Sodium 138 (137-145) mmol/L Potassium 4.3 (3.5-5.1) mmol/L Chloride 102 (98-107) mmol/L Carbon Dioxide 26 (22-30) mmol/L Anion Gap 10 mmol/L BUN 26 H (9-20) mg/dL Creatinine 1.32 H (0.66-1.25) mg/dL Est GFR (CKD-EPI)AfAm 58 (>60 ml/min/1.73 sqM) Est GFR (CKD-EPI)NonAf 50 (>60 ml/min/1.73 sqM) Glucose 120 H (74-99) mg/dL Calcium 9.3 (8.4-10.2) mg/dL Magnesium 1.7 (1.6-2.3) mg/dL Total Bilirubin 1.6 H (0.2-1.3) mg/dL AST 50 (17-59) U/L ALT 35 (4-49) U/L Alkaline Phosphatase 171 H (38-126) U/L Troponin I (0.000-0.034) ng/mL Total Protein 8.2 (6.3-8.2) g/dL Albumin 3.7 (3.5-5.0) g/dL TSH 3.590 (0.465-4.680) mIU/L 03/08/24 Range/Units 14:52 WBC (3.8-10.6) k/uL RBC (4.30-5.90) m/uL Hgb (13.0-17.5) gm/dL Hct (39.0-53.0) % MCV (80.0-100.0) fL MCH (25.0-35.0) pg MCHC (31.0-37.0) g/dL RDW (11.5-15.5) % Plt Count (150-450) k/uL MPV Neutrophils % % Lymphocytes % % Monocytes % % Eosinophils % % Basophils % % Neutrophils # (1.3-7.7) k/uL Lymphocytes # (1.0-4.8) k/uL Monocytes # (0-1.0) k/uL Eosinophils # (0-0.7) k/uL Basophils # (0-0.2) k/uL PT (10.0-12.5) sec INR (<1.2) APTT (22.0-30.0) sec Sodium (137-145) mmol/L Potassium (3.5-5.1) mmol/L Chloride (98-107) mmol/L Carbon Dioxide (22-30) mmol/L Anion Gap mmol/L BUN (9-20) mg/dL Creatinine (0.66-1.25) mg/dL Est GFR (CKD-EPI)AfAm (>60 ml/min/1.73 sqM) Est GFR (CKD-EPI)NonAf (>60 ml/min/1.73 sqM) Glucose (74-99) mg/dL Calcium (8.4-10.2) mg/dL Magnesium (1.6-2.3) mg/dL Total Bilirubin (0.2-1.3) mg/dL AST (17-59) U/L ALT (4-49) U/L Alkaline Phosphatase (38-126) U/L Troponin I 0.016 (0.000-0.034) ng/mL Total Protein (6.3-8.2) g/dL Albumin (3.5-5.0) g/dL TSH (0.465-4.680) mIU/L Disposition Clinical Impression: Pacemaker complications, Near syncope, Bigeminal rhythm Disposition: ADMITTED IP TO THIS [facility] Condition: Stable Is patient prescribed a controlled substance at d/c from ED?: No Referrals: John Arellano MD [Primary Care Provider] - 1-2 days Time of Disposition: 17:24 Decision to Admit Reason: Admit from EC Decision Date: 03/08/24 Decision Time: 17:24
[2024-03-08] MEDS ORDERED: ALBUTEROL NEBULIZED 2.5 MG/3 ML INHALATION PRN (18:54)
[2024-03-08] MEDS: ATORVASTATIN 40 MG TAB PO SCH (21:09)
[2024-03-08] MEDS: RIVAROXABAN 15 MG TAB PO SCH (21:10)
[2024-03-09 07:29] LABS: Basophils % (A) 1 %; Eosinophils # (A) 0.3 k/uL (0-0.7); Eosinophils % (A) 5 %; HGB 13.8 gm/dL (13.0-17.5); Hypochromasia Slight; Lymphocytes # (A) 1.5 k/uL (1.0-4.8); Lymphocytes % (A) 20 %; MCH 30.9 pg (25.0-35.0); MCV 96.5 fL (80.0-100.0); Mean Platelet Volume 7.5; Monocytes # (A) 0.4 k/uL (0-1.0); Monocytes % (A) 5 %; Neutrophils # (A) 4.8 k/uL (1.3-7.7); Neutrophils % (A) 68 %; Platelet Count 240 k/uL (150-450); RBC 4.46 m/uL (4.30-5.90); RDW 15.2 % (11.5-15.5); WBC 7.1 k/uL (3.8-10.6)
[2024-03-09 07:44] LABS: African American GFR (CKD) 62 (>60 ml/min/1.73 sqM); Anion Gap 8 mmol/L; Blood Urea Nitrogen 27 mg/dL (9-20); Calcium 8.5 mg/dL (8.4-10.2); Carbon Dioxide 26 mmol/L (22-30); Chloride 104 mmol/L (98-107); Glucose 90 mg/dL (74-99); Non-African American GFR(CKD) 53 (>60 ml/min/1.73 sqM); Potassium 3.7 mmol/L (3.5-5.1); Sodium 138 mmol/L (137-145)
[2024-03-09] MEDS ORDERED: NON FORMULARY DRUG (Ubidecarenone [Co Q-10] 300 MG Capsule) PO SCH (09:00)
[2024-03-09] MEDS ORDERED: NON FORMULARY DRUG (Omega-3/Dha/Epa/Fish Oil [Fish Oil 500 Mg Softgel] 1 EACH Capsule) PO SCH (09:00)
[2024-03-09] MEDS: FUROSEMIDE 20 MG TAB PO SCH (09:20)
[2024-03-09] MEDS: SERTRALINE 25 MG TAB PO SCH (09:20)
[2024-03-09] MEDS: LOSARTAN 50 MG TAB PO SCH (09:20)
--- NOTE | 2024-03-09 11:35 | US ---
EXAMINATION TYPE: US carotid duplex BILAT DATE OF EXAM: 03/09/2024 COMPARISON: NONE CLINICAL INDICATION: Male, 83 years old with history of carotid bruit right; carotid bruit Additional History: R09.89 Carotid bruit TECHNIQUE: Grayscale, color Doppler and spectral Doppler evaluation of the bilateral carotid systems and vertebral arteries. Indirect Doppler criteria was utilized. FINDINGS: EXAM MEASUREMENTS: RIGHT: Peak Systolic Velocity (PSV) cm/sec ----- Right CCA: 54.7 ----- Right ICA: 74.3 ----- Right ECA: 61.3 ICA/CCA ratio: 1.36 RIGHT: End Diastole cm/sec ----- Right CCA: 10.5 ----- Right ICA: 18.9 ----- Right ECA: 9.6 LEFT: Peak Systolic Velocity (PSV) cm/sec ----- Left CCA: 77.2 ----- Left ICA: 159 ----- Left ECA: 164 ICA/CCA ratio: 2.06 LEFT: End Diastole cm/sec ----- Left CCA: 10.9 ----- Left ICA: 39.8 ----- Left ECA: 13.0 VERTEBRALS (direction of flow): Right Vertebral: Antegrade Left Vertebral: Antegrade Rhythm: Arrhythmia CUPOLA PATCHER NOTES: Moderate to severe amount of plaque seen in right bulb, left distal CCA, left bulb , and left prox ICA. Elevated velocities seen at left prox and mid ICA. Color Doppler imaging shows patency with blood flow throughout the carotid artery. Spectral waveforms are within normal limits. IMPRESSION: 1. Likely within the bilateral carotid bifurcations. This is contributing to a moderate stenosis betw een 50 and 69% of the left internal carotid artery. 2. No significant flow-limiting stenosis right internal carotid artery based on velocities. Large renetta ques are present. Criteria for Assigning % of Stenosis / Diameter reduction (Estimation based on the indirect measurements of the internal carotid artery velocities (ICA PSV). 1. Normal (no stenosis)=ICA PSV < 125 cm/s: ratio < 2.0: ICA EDV<40 cm/s. 2. Less than 50% stenosis=ICA PSV < 125 cm/s: ratio < 2.0: ICA EDV<40 cm/s. 3. 50 to 69% stenosis=ICA PSV of 125 to 230 cm/s: ration 2.0 ? 4.0: ICA EDV 40-100 cm/s. 4. Greater than 70% stenosis to near occlusion= ICA PSV > 230 cm/s: ratio > 4.0: ICA EDV > 100 cm/s. 5. Near occlusion= ICA PSV velocities may be low or undetectable: variable ratio and ICA EDV. 6. Total occlusion=unable to detect flow. [facility], , 03/09/2024 11:32 AM
[2024-03-09] MEDS: AMIODARONE 200 MG TAB PO SCH (12:11)
[2024-03-09] MEDS: METOPROLOL TARTRATE 50 MG TAB PO SCH (12:11)
--- NOTE | 2024-03-09 12:50 | P.CRDCN ---
History of Present Illness Consult date: 03/09/24 Reason for Consult (text): Near syncope History of present illness: This is an 83-year-old male patient of Dr. SARINA Luna with past medical history of coronary artery disease status post bypass grafting with 5 vessel bypass SIMS to LAD, VG to ramus intermedius, obtuse marginal and sequentially to PDA and PLV branches of the RCA in 2010, ischemic cardiomyopathy status post BiV ICD, paroxysmal atrial fibrillation on Xarelto, frequent PVCs, hypertension, hyperlipidemia, obstructive sleep apnea with poor CPAP compliance, bladder cancer was ruled out at [facility]. We have been asked to evaluate the patient for near syncope. Patient gives history that he has had more dizziness shortness of breath for the past couple of months. He states he stopped taking his beta-rodríguez for 2 weeks and was feeling better. His beta-rodríguez was at 50 mg/day and it was increased to 75 mg and then to 75 mg twice daily. He was in the office with Dr. Luna this week and the beta-rodríguez was increased to 3 times daily as well as Lasix was increased. He states his dizziness shortness of breath were worse and his heart rate was low. He states sometimes his heart rate with activity drops down to 3435 and his pulse ox. He states when he was in the office his pacemaker was checked and settings were moved to 60. He denies having any chest pain, chest pressure or chest tightness. He states that symptoms happen when he gets up to walk. He states he has decreased his activity and exercise because of lightheadedness. Patient also states that he has not been eating well because of decreased appetite and over the past 6 months is lost 60 pounds. -EKG: Paced rhythm, PVCs -Chest x-ray: Diffuse opacity could reflect CHF with mild interstitial pulmonary edema versus atypical pneumonia -Laboratory studies: WBC 7.1, hemoglobin 13. BUN 27, creatinine 1.25. Troponin 0.016. proBNP 40,100. TSH 3.59. -Home cardiac medications: Atorvastatin 40 mg at bedtime, Lasix 20 mg daily, losartan 50 mg daily, Lopressor 75 mg 3 times daily, Xarelto 20 mg at bedtime -Cardiac catheterization history: 03/2022 revealed slightly elevated filling pressure, no gradient, right dominant system with totally occluded RCA, LAD and circumflex, 70 to 75% left main disease, SVG to the PDA of RCA is patent and opacifies entire RCA including PLV branch, SVG to the left circumflex is a sequential 2 limbs patent, SVG to ramus not seen. SIMS to LAD patent. -Echocardiogram performed in the office 10/17/2022 reveals EF of 43%, inferior lateral and anterior septal hypokinesia, mild aortic stenosis. -Biventricular ICD [place] 05/16/2022. -Carotid duplex performed 08/01/2018 revealed 80 to 99% stenosis on the right and 50 to 79% stenosis on the left. Review Of Systems: At the time of my exam: CONSTITUTIONAL: Denies fever or chills. Complains of feeling fatigued. HEENT: Denies blurred vision, vision changes, or eye pain. Denies hemoptysis CARDIOVASCULAR: Denies chest pain. Denies orthopnea. Denies PND. Denies palpitations RESPIRATORY: Denies shortness of breath. GASTROINTESTINAL: Denies abdominal pain. Denies nausea or vomiting. HEMATOLOGIC: Denies bleeding disorders. GENITOURINARY: Denies any blood in urine. SKIN: Denies puritis. Denies rash. Physical examination: Gen: This is an 83-year-old male in no acute distress VS: reviewed HEENT: Head is atraumatic, normocephalic. Pupils equal, round. Sclerae is anicteric. NECK: Supple. No JVD. LUNGS: Clear to auscultation. No wheezes or rhonchi. No intercostal retractions. HEART: Irregular rate and rhythm. Systolic murmur. ABDOMEN: Soft No tenderness. EXTREMITIES: No pedal edema. No calf tenderness. NEUROLOGICAL: Patient is awake, alert and oriented x3. Assessment: Symptoms of dizziness and shortness of breath with activity Weight loss of 60 pounds over 6 months Right carotid stenosis of 80 to 99% in 2019 Coronary artery disease status post bypass grafting Ischemic cardiomyopathy status post BiV ICD Paroxysmal atrial fibrillation on Xarelto Frequent PVCs Hypertension Hyperlipidemia Obstructive sleep apnea with poor CPAP compliance Plan: Resume patient's home cardiac medications with the following changes: Decrease Lopressor to 50 mg twice daily Obtain carotid duplex to evaluate previously known carotid stenosis Start patient on amiodarone 200 mg daily to suppress PVCs and keep patient out of atrial fibrillation Obtain 2-D echocardiogram and Doppler study to assess cardiac structure and function If patient is still hospitalized on Monday, may consider stress test At the time of discharge, patient will follow-up with Dr. SARINA Luna, consider event monitor to evaluate PVC burden Further recommendations to follow based upon clinical course Thank you kindly for this consultation. Nurse practitioner note has been reviewed, I agree with documented findings and plan of care. Patient was seen and examined. Past Medical History Past Medical History: Hyperlipidemia, Hypertension, Osteoarthritis (OA) Additional Past Medical History / Comment(s): ABDOMINAL ANEURYSM, SNORES- STATES MILD BREATHING PROBLEMS AT NIGHT. , DIFFICULTY SWALLOWING- FEELS LIKE FOOD GETS STUCK. See Dr. Phan's H&P. Shinlaureen 2 years ago. History of Any Multi-Drug Resistant Organisms: None Reported Past Surgical History: Cholecystectomy, Coronary Bypass/CABG, Tonsillectomy Additional Past Surgical History / Comment(s): CABG X6 (2009), pacemaker in 2020 Past Anesthesia/Blood Transfusion Reactions: No Reported Reaction Past Psychological History: No Psychological Hx Reported Smoking Status: Former smoker Past Alcohol Use History: Occasional Additional Past Alcohol Use History / Comment(s): Quit smoking 20 years ago. Past Drug Use History: None Reported - Past Family History Mother Family Medical History: Cancer Additional Family Medical History / Comment(s): OVARIAN WITH METS. Medications and Allergies Home Medications Medication Instructions Recorded Confirmed Type Atorvastatin [Lipitor] 40 mg PO HS 09/12/16 03/08/24 History Furosemide [Lasix] 20 mg PO DAILY 01/22/21 03/08/24 History Losartan Potassium 50 mg PO DAILY 01/22/21 03/08/24 History Rivaroxaban [Xarelto] 20 mg PO HS 01/22/21 03/08/24 History Ubidecarenone [Co Q-10] 100 mg PO DAILY 04/21/22 03/08/24 History Albuterol Inhaler [Ventolin Hfa 2 puff INHALATION RT-Q6H PRN 03/08/24 03/08/24 H istory Inhaler] Metoprolol Tartrate [Lopressor] 75 mg PO TID 03/08/24 03/08/24 History [place]-3/Dha/Epa/Fish Oil [Fish Oil 1 cap PO DAILY 03/08/24 03/08/24 History 500 mg Softgel] Sertraline [Zoloft] 25 mg PO DAILY 03/08/24 03/08/24 History Allergies Allergy/AdvReac Type Severity Reaction Status Date / Time Penicillins AdvReac Anaphylaxis Verified 03/08/24 17:20 vancomycin AdvReac Itching Verified 03/08/24 17:20 Physical Exam Vitals: Vital Signs Temp Pulse Pulse Pulse Resp BP BP 03/09/24 06:40 97.5 F L 73 17 03/09/24 02:08 37 L 80 20 03/09/24 01:20 97.6 F 74 18 130/75 03/08/24 21:09 80 20 03/08/24 20:48 97.5 F L 35 L 20 124/74 03/08/24 20:37 77 18 144/107 03/08/24 18:48 73 18 106/86 03/08/24 17:57 67 16 107/85 03/08/24 16:31 80 16 130/100 03/08/24 15:43 95.4 F L 72 16 147/104 03/08/24 14:39 37 L 03/08/24 14:25 67 18 124/77 03/08/24 14:04 98 F 36 L 26 H 128/71 BP Pulse Ox 03/09/24 06:40 146/74 98 03/09/24 02:08 03/09/24 01:20 96 03/08/24 21:09 03/08/24 20:48 94 L 03/08/24 20:37 99 03/08/24 18:48 96 03/08/24 17:57 96 03/08/24 16:31 95 03/08/24 15:43 98 03/08/24 14:39 03/08/24 14:25 03/08/24 14:04 92 L Intake and Output 03/08/24 03/09/24 03/09/24 22:59 06:59 14:59 Other: Voiding Method Toilet Toilet # Voids 1 # Bowel Movements 1 Weight 71.6 kg Results 03/09/24 06:35 03/09/24 06:35 Cardiac Enzymes 03/08/24 03/08/24 Range/Units 14:52 14:52 AST 50 (17-59) U/L Troponin I 0.016 (0.000-0.034) ng/mL Coagulation 03/08/24 Range/Units 14:52 PT 21.3 H (10.0-12.5) sec APTT 30.0 (22.0-30.0) sec CBC 03/08/24 03/09/24 Range/Units 14:52 06:35 WBC 7.7 7.1 (3.8-10.6) k/uL RBC 4.97 4.46 (4.30-5.90) m/uL Hgb 15.0 13.8 (13.0-17.5) gm/dL Hct 47.4 43.0 (39.0-53.0) % Plt Count 261 240 (150-450) k/uL Comprehensive Metabolic Panel 03/08/24 03/09/24 Range/Units 14:52 06:35 Sodium 138 138 (137-145) mmol/L Potassium 4.3 3.7 (3.5-5.1) mmol/L Chloride 102 104 (98-107) mmol/L Carbon Dioxide 26 26 (22-30) mmol/L BUN 26 H 27 H (9-20) mg/dL Creatinine 1.32 H 1.25 (0.66-1.25) mg/dL Glucose 120 H 90 (74-99) mg/dL Calcium 9.3 8.5 (8.4-10.2) mg/dL AST 50 (17-59) U/L ALT 35 (4-49) U/L Alkaline Phosphatase 171 H (38-126) U/L Total Protein 8.2 (6.3-8.2) g/dL Albumin 3.7 (3.5-5.0) g/dL Current Medications Generic Name Dose Route Start Last Admin Trade Name Freq PRN Reason Stop Dose Admin Albuterol Sulfate 2.5 mg 03/08/24 18:54 Albuterol Nebulized 2.5 Mg/3 Ml INHALATION RT-Q6H PRN Shortness Of Breath Atorvastatin Calcium 40 mg 03/08/24 21:00 03/08/24 21:09 Atorvastatin 40 Mg Tab PO 40 mg HS ALBER Administration Furosemide 20 mg 03/09/24 09:00 Furosemide 20 Mg Tab PO DAILY ALBER Losartan Potassium 50 mg 03/09/24 09:00 Losartan 50 Mg Tab PO DAILY ALBER Naloxone HCl 0.2 mg 03/08/24 17:24 Naloxone 0.4 Mg/Ml 1 Ml Vial IV Q2M PRN Opioid Reversal Rivaroxaban 15 mg 03/08/24 21:00 03/08/24 21:10 Rivaroxaban 15 Mg Tab PO 15 mg HS ALBER Administration Protocol Sertraline HCl 25 mg 03/09/24 09:00 Sertraline 25 Mg Tab PO DAILY ALBER Intake and Output 03/08/24 03/09/24 03/09/24 22:59 06:59 14:59 Other: Voiding Method Toilet Toilet # Voids 1 # Bowel Movements 1 Weight 71.6 kg 03/09/24 06:35 03/09/24 06:35
[2024-03-09 13:01] VITALS: BMI 24.0
--- NOTE | 2024-03-09 15:24 | P.HPIM ---
History of Present Illness -year-old pleasant male came in with complaints of shortness of breath lightheadedness. Patient has extensive cardiac history had a history of 5 vessel bypass congestive heart failure severe ischemic cardiomyopathy EF of around 40%. His shortness of breath is worse whenever his heart rate is low. Patient is on metoprolol dose of which was recently increased to 75 twice a day used to be on 25 twice a day in the past which was slowly increased to 50 and 75. Patient is significantly decreased appetite. EKG showed paced rhythm with PVCs patient has a AICD and a pacemaker. Patient stopped taking metoprolol for last 3 days and p atient felt much better after stopping that patient shortness of breath is much better after stopping metoprolol as per the patient. And the patient declined to take this medication today morning. Patient was eval by cardiology and the dose of metoprolol was increased to 50 twice a day by cardiology. Patient chest x-ray showing mild pulmonary edema proBNP is 40,100 although patient clinically is not in volume overloaded patient is able to lay flat although is on 2 L of oxygen which she does not use at home. Patient does not have any pedal edema no clinically elevated JVD. Patient had a weight loss of 60 pounds in last 6 months. Cardiology also recommended carotid Doppler which showed moderate stenosis below 70% essentially anywhere between 50 to 68% echocardiogram was ordered results of which are pending. REVIEW OF SYSTEMS: All other systems are negative except those mentioned in the HPI PHYSICAL EXAMINATION: GENERAL: The patient is alert and oriented x3, not in any acute distress. Well developed, well nourished. HEENT: Pupils are round and equally reacting to light. EOMI. No scleral icterus. No conjunctival pallor. Normocephalic, atraumatic. No pharyngeal erythema. No thyromegaly. CARDIOVASCULAR: S1 and S2 present. No murmurs, rubs, or gallops. PULMONARY: Chest is clear to auscultation, no wheezing or crackles. ABDOMEN: Soft, nontender, nondistended, normoactive bowel sounds. No palpable organomegaly. MUSCULOSKELETAL: No joint swelling or deformity. EXTREMITIES: No cyanosis, clubbing, or pedal edema. NEUROLOGICAL: Gross neurological examination did not reveal any focal deficits. SKIN: No rashes. Assessment and plan -Dizziness, shortness of breath may be related to hypertension patient has significant weight loss dose of metoprolol was decreased patient has a pacemaker. Patient does have nonsustained VT episodes patient was started on amiodarone echocardiogram is pending carotid Dopplers did not show significant occlusion that will need intervention at this time. -Paroxysmal atrial fibrillation for which patient is on Xarelto which will be c ontinued patient is rate controlled at this time in sinus rhythm at this time -Coronary disease with CABG in the past -Ischemic cardiomyopathy EF of around 40 to 45% BiV ICD patient is not in heart failure exacerbation clinically despite of elevated BNP and chest x-ray readings -Obstructive apnea -Hypertension -Nonsustained VT on amiodarone as mentioned above -Hyperlipidemia -Mild acute renal failure with elevated creatinine above his baseline repeat basic metabolic profile tomorrow although his ROSALIO inhibitor and Lasix will be continued as it is DVT prophylaxis: On anticoagulation as mentioned above . Past Medical History Past Medical History: Hyperlipidemia, Hypertension, Osteoarthritis (OA) Additional Past Medical History / Comment(s): ABDOMINAL ANEURYSM, SNORES- STATES MILD BREATHING PROBLEMS AT NIGHT. , DIFFICULTY SWALLOWING- FEELS LIKE FOOD GETS STUCK. See Dr. Phan's H&P. Deepa 2 years ago. History of Any Multi-Drug Resistant Organisms: None Reported Past Surgical History: Cholecystectomy, Coronary Bypass/CABG, Tonsillectomy Additional Past Surgical History / Comment(s): CABG X6 (2009), pacemaker in 2020 Past Anesthesia/Blood Transfusion Reactions: No Reported Reaction Past Psychological History: No Psychological Hx Reported Smoking Status: Former smoker Past Alcohol Use History: Occasional Additional Past Alcohol Use History / Comment(s): Quit smoking 20 years ago. Past Drug Use History: None Reported - Past Family History Mother Family Medical History: Cancer Additional Family Medical History / Comment(s): OVARIAN WITH METS. Medications and Allergies Home Medications Medication Instructions Recorded Confirmed Type Atorvastatin [Lipitor] 40 mg PO HS 09/12/16 03/08/24 History Furosemide [Lasix] 20 mg PO DAILY 01/22/21 03/08/24 History Losartan Potassium 50 mg PO DAILY 01/22/21 03/08/24 History Rivaroxaban [Xarelto] 20 mg PO HS 01/22/21 03/08/24 History Ubidecarenone [Co Q-10] 100 mg PO DAILY 04/21/22 03/08/24 History Albuterol Inhaler [Ventolin Hfa 2 puff INHALATION RT-Q6H PRN 03/08/24 03/08/24 History Inhaler] Metoprolol Tartrate [Lopressor] 75 mg PO TID 03/08/24 03/08/24 History [place]-3/Dha/Epa/Fish Oil [Fish Oil 1 cap PO DAILY 03/08/24 03/08/24 History 500 mg Softgel] Sertraline [Zoloft] 25 mg PO DAILY 03/08/24 03/08/24 History Allergies Allergy/AdvReac Type Severity Reaction Status Date / Time Penicillins AdvReac Anaphylaxis Verified 03/08/24 17:20 vancomycin AdvReac Itching Verified 03/08/24 17:20 Physical Exam Vitals: Vital Signs Temp Pulse Pulse Pulse Pulse Pulse Pulse 03/09/24 09:15 41 L 42 L 37 L 03/09/24 06:40 97.5 F L 73 03/09/24 02:08 37 L 80 03/09/24 01:20 97.6 F 74 03/08/24 21:09 80 03/08/24 20:48 97.5 F L 35 L 03/08/24 20:37 77 03/08/24 18:48 73 03/08/24 17:57 67 03/08/24 16:31 80 03/08/24 15:43 95.4 F L 72 Resp BP BP BP BP BP BP 03/09/24 09:15 17 133/73 162/77 135/65 03/09/24 06:40 17 146/74 03/09/24 02:08 20 03/09/24 01:20 18 130/75 03/08/24 21:09 20 03/08/24 20:48 20 124/74 03/08/24 20:37 18 144/107 03/08/24 18:48 18 106/86 03/08/24 17:57 16 107/85 03/08/24 16:31 16 130/100 03/08/24 15:43 16 147/104 Pulse Ox 03/09/24 09:15 97 03/09/24 06:40 98 03/09/24 02:08 03/09/24 01:20 96 03/08/24 21:09 03/08/24 20:48 94 L 03/08/24 20:37 99 03/08/24 18:48 96 03/08/24 17:57 96 03/08/24 16:31 95 03/08/24 15:43 98 Intake and Output 03/09/24 03/09/24 03/09/24 06:59 14:59 22:59 Other: Voiding Method Toilet # Voids 1 # Bowel Movements 1 Weight 71.6 kg Results CBC & Chem 7: 03/09/24 06:35 03/09/24 06:35 Labs: Abnormal Lab Results - Last 24 Hours (Table) 03/08/24 03/09/24 Range/Units 14:52 06:35 BUN 26 H 27 H (9-20) mg/dL Creatinine 1.32 H (0.66-1.25) mg/dL Glucose 120 H (74-99) mg/dL Total Bilirubin 1.6 H (0.2-1.3) mg/dL Alkaline Phosphatase 171 H (38-126) U/L Thrombosis Risk Factor Assmnt - Choose All That Apply Any of the Below Risk Factors Present?: Yes Each Factor Represents 1 point: Acute [place] Other Risk Factors: Yes Each Risk Factor Represents 3 Points: Age 75 years or older Other congenital or acquired thrombophilia - If yes, enter type in comment: No Thrombosis Risk Factor Assessment Total Risk Factor Score: 4 Thrombosis Risk Factor Assessment Level: Moderate Risk
--- NOTE | 2024-03-09 16:14 | CA ---
Transthoracic Echo Report Name: Jameel Salazar Age: 83 Gender: M : 1940 Exam Date: 03/09/2024 11:31 Exam Location: [facility] Ht (in): 68 Wt (lb): 157 Ordering Physician: Alysha Cornejo Attending/Referring Phys: [id number], Chantal Plant Manager Adry Ribeiro RDCS Procedure CPT: Indications: LVF Cardiac Hx: Technical Quality: Fair Contrast 1: Total Dose (mL): Contrast 2: Total Dose (mL): MEASUREMENTS (Male / Female) Normal Values 2D ECHO LV Diastolic Diameter PLAX 5.1 cm 4.2 - 5.9 / 3.9 - 5.3 cm LV Systolic Diameter PLAX 4.3 cm IVS Diastolic Thickness 0.9 cm 0.6 - 1.0 / 0.6 - 0.9 cm LVPW Diastolic Thickness 0.9 cm 0.6 - 1.0 / 0.6 - 0.9 cm LV Relative Wall Thickness 0.3 RV Internal Dim ED PLAX 5.1 cm LVOT Diameter 1.8 cm LV Diastolic Volume MOD BP 130.7 cm??? 67 - 155 / 56 - 104 cm??? LV Systolic Volume MOD BP 77.8 cm??? 22 - 58 / 19 - 49 cm??? LV Ejection Fraction MOD BP 40.5 % >= 55 % LV Cardiac Index MOD BP 1970.5 cm???/min???m??? LV Diastolic Volume MOD 4C 98.6 cm??? LV Systolic Volume MOD 4C 55.7 cm??? LV Ejection Fraction MOD 4C 43.5 % LV Cardiac Index MOD 4C 1595.2 cm???/min???m??? LV Diastolic Length 4C 7.6 cm LV Systolic Length 4C 6.6 cm LV Diastolic Volume MOD 2C 158.3 cm??? LV Systolic Volume MOD 2C 95.1 cm??? LV Ejection Fraction MOD 2C 39.9 % LV Cardiac Index MOD 2C 2349.0 cm???/min???m??? LV Diastolic Length 2C 8.4 cm LV Systolic Length 2C 7.6 cm LA Volume 68.8 cm??? 18 - 58 / 22 - 52 cm??? LA Volume Index 37.1 cm???/m??? 16 - 28 cm???/m??? DOPPLER AV Peak Velocity 173.5 cm/s AV Peak Gradient 12.0 mmHg AV Mean Velocity 115.9 cm/s AV Mean Gradient 6.3 mmHg AV Velocity Time Integral 31.3 cm LVOT Peak Velocity 43.4 cm/s LVOT Peak Gradient 0.8 mmHg LVOT Velocity Time Integral 9.7 cm LVOT Stroke Volume 23.5 cm??? LVOT Stroke Volume Index 12.7 ml/m??? LVOT Cardiac Index 874.8 cm???/min???m??? AV Area Cont Eq vti 0.8 cm??? AV Area Cont Eq pk 0.6 cm??? MV Area PHT 2.3 cm??? Mitral E Point Velocity 65.0 cm/s Mitral A Point Velocity 59.9 cm/s Mitral E to A Ratio 1.1 MV Deceleration Time 331.7 ms TR Peak Velocity 348.5 cm/s TR Peak Gradient 48.6 mmHg FINDINGS Left Ventricle Moderately increased left ventricular systolic volume. Moderately decreased left ventricular ejection fraction. Reduced global left ventricular systolic function. Left ventricular ejection fraction is estimated at 25%. Abnormal left ventricular diastolic filling pattern. Right Ventricle Moderate right ventricular dilatation. Moderate to severe pulmonary hypertension. Right ventricular systolic pressure estimated at 58 mm hg. Hypokinetic right ventricular free wall. Right Atrium Moderate right atrial dilatation. Catheter/pacemaker wire in the right atrial cavity. Left Atrium Mildly increased left atrial volume. Mitral Valve Structurally normal mitral valve. Mild mitral annular calcification. Mild mitral regurgitation. Aortic Valve Trileaflet aortic valve. Mild aortic stenosis with a peak gradient of 12 mmHg and a mean gradient of 6 mmHg. Low flow . Tricuspid Valve Structurally normal tricuspid valve. Moderate tricuspid regurgitation. Pulmonic Valve Structurally normal pulmonic valve. Pericardium No pericardial effusion. Aorta Normal size aortic root and proximal ascending aorta. CONCLUSIONS Left ventricular ejection fraction 25% Moderately concentric increased left ventricular wall thickening Moderate right ventricular dilation RVSP 58 Mild right ventricular hypokinesis Mild mitral regurgitation Moderate to severely decreased aortic valve excursion with some degree of low- flow low gradient however likely more moderate aortic stenosis with dementia was an extra 0.4 Moderate tricuspid regurgitation Previewed by: Dr. Sean Walters DO (Electronically Signed) Final Date: 09 March 2024 16:13
[2024-03-09] MEDS: RIVAROXABAN 20 MG TAB PO SCH (19:55)
[2024-03-10 09:10] VITALS: BP 173/98; PULSE 109; RESP 18; TEMP 97.4
[2024-03-10] MEDS: METOPROLOL TARTRATE 12.5 MG TAB PO SCH (09:17)
[2024-03-10 09:41] LABS: BUN/Creat Ratio 22.25 Ratio (12.00-20.00); Blood Urea Nitrogen 26.7 mg/dL (9.0-27.0); Calcium 8.5 mg/dL (8.7-10.3); Carbon Dioxide 24.6 mmol/L (21.6-31.8); Chloride 104 mmol/L (96-109); Glucose 87 mg/dL (70-110); Magnesium 1.6 mg/dL (1.5-2.4); Potassium 3.8 mmol/L (3.5-5.5); Sodium 139 mmol/L (135-145)
--- NOTE | 2024-03-10 10:26 | P.DS ---
Providers Date of admission: 03/08/24 17:24 Attending physician: Elisa Howard Consults: 03/08/24 17:24 Consult Physician Urgent Consulting Provider: [facility] Reason/Comments: near syncope Do you want consulting provider notified?: Yes [facility] Course: -year-old pleasant male came in with complaints of shortness of breath lighthead edness. Patient has extensive cardiac history had a history of 5 vessel bypass congestive heart failure severe ischemic cardiomyopathy EF of around 40%. His shortness of breath is worse whenever his heart rate is low. Patient is on metoprolol dose of which was recently increased to 75 twice a day used to be on 25 twice a day in the past which was slowly increased to 50 and 75. Patient is significantly decreased appetite. EKG showed paced rhythm with PVCs patient has a AICD and a pacemaker. Patient stopped taking metoprolol for last 3 days and patient felt much better after stopping that patient shortness of breath is much better after stopping metoprolol as per the patient. And the patient declined to take this medication today morning. Patient was eval by cardiology and the dose of metoprolol was increased to 50 twice a day by cardiology. Patient chest x-ray showing mild pulmonary edema proBNP is 40,100 although patient clinically is not in volume overloaded patient is able to lay flat although is on 2 L of oxygen which she does not use at home. Patient does not have any pedal edema no clinically elevated JVD. Patient had a weight loss of 60 pounds in last 6 months. Cardiology also recommended carotid Doppler which showed moderate stenosis below 70% essentially anywhere between 50 to 68% echocardiogram was ordered results of which are pending. 03/10/2024 Patient is clinically doing well dose of metoprolol was decreased to 12.5 twice a day and amiodarone was added patient is feeling much better today will be discharged today PHYSICAL EXAMINATION: GENERAL: The patient is alert and oriented x3, not in any acute distress. Well developed, well nourished. HEENT: Pupils are round and equally reacting to light. EOMI. No scleral icterus. No conjunctival pallor. Normocephalic, atraumatic. No pharyngeal erythema. No thyromegaly. CARDIOVASCULAR: S1 and S2 present. No murmurs, rubs, or gallops. PULMONARY: Chest is clear to auscultation, no wheezing or crackles. ABDOMEN: Soft, nontender, nondistended, normoactive bowel sounds. No palpable organomegaly. MUSCULOSKELETAL: No joint swelling or deformity. EXTREMITIES: No cyanosis, clubbing, or pedal edema. NEUROLOGICAL: Gross neurological examination did not reveal any focal deficits. SKIN: No rashes. Assessment and plan -Dizziness, shortness of breath may be related to hypertension patient has significant weight loss dose of metoprolol was decreased patient has a pacemaker. Patient does have nonsustained VT episodes patient was started on amiodarone echocardiogram showed EF of 20 to 25% and moderate pulmonary hypertension. Carotid Dopplers did not show significant occlusion that will need intervention at this time. -Paroxysmal atrial fibrillation for which patient is on Xarelto which will be continued patient is rate controlled at this time in sinus rhythm at this time -Coronary disease with CABG in the past -Ischemic cardiomyopathy EF of around 20-25 % BiV ICD patient is not in heart failure exacerbation clinically despite of elevated BNP and chest x-ray readings -Obstructive apnea -Hypertension -Nonsustained VT on amiodarone as mentioned above -Hyperlipidemia -Mild acute renal failure with elevated creatinine above his baseline repeat basic metabolic profile tomorrow although his ROSALIO inhibitor and Lasix will be continued as it is Patient Condition at Discharge: Stable Plan - Discharge Summary Discharge Rx Participant: No New Discharge Prescriptions: New Metoprolol Tartrate [Lopressor] 12.5 mg PO BID #60 tab Amiodarone [Cordarone] 200 mg PO DAILY #30 tab Continue Atorvastatin [Lipitor] 40 mg PO HS Losartan Potassium 50 mg PO DAILY Rivaroxaban [Xarelto] 20 mg PO HS Albuterol Inhaler [Ventolin Hfa Inhaler] 2 puff INHALATION RT-Q6H PRN PRN Reason: Shortness Of Breath Sertraline [Zoloft] 25 mg PO DAILY Furosemide [Lasix] 20 mg PO DAILY Ubidecarenone [Co Q-10] 100 mg PO DAILY [place]-3/Dha/Epa/Fish Oil [Fish Oil 500 mg Softgel] 1 cap PO DAILY Discontinued Metoprolol Tartrate [Lopressor] 75 mg PO TID Discharge Medication List Atorvastatin [Lipitor] 40 mg PO HS 09/12/16 [History] Furosemide [Lasix] 20 mg PO DAILY 01/22/21 [History] Losartan Potassium 50 mg PO DAILY 01/22/21 [History] Rivaroxaban [Xarelto] 20 mg PO HS 01/22/21 [History] Ubidecarenone [Co Q-10] 100 mg PO DAILY 04/21/22 [History] Albuterol Inhaler [Ventolin Hfa Inhaler] 2 puff INHALATION RT-Q6H PRN 03/08/24 [History] [place]-3/Dha/Epa/Fish Oil [Fish Oil 500 mg Softgel] 1 cap PO DAILY 03/08/24 [History] Sertraline [Zoloft] 25 mg PO DAILY 03/08/24 [History] Amiodarone [Cordarone] 200 mg PO DAILY #30 tab 03/10/24 [Rx] Metoprolol Tartrate [Lopressor] 12.5 mg PO BID #60 tab 03/10/24 [Rx] Follow up Appointment(s)/Referral(s): Keyona Luna MD [STAFF PHYSICIAN] - 1 Week (and pacemaker check) John Arellano MD [Primary Care Provider] - 3 Days
--- NOTE | 2024-03-10 11:49 | P.PN ---
Subjective Progress Note Date: 03/10/24 Reason for Consult (text): Near syncope History of present illness: This is an 83-year-old male patient of Dr. SARINA Luna with past medical history of coronary artery disease status post bypass grafting with 5 vessel bypass SIMS to LAD, VG to ramus intermedius, obtuse marginal and sequentially to PDA and PLV branches of the RCA in 2010, ischemic cardiomyopathy status post BiV ICD, paroxysmal atrial fibrillation on Xarelto, frequent PVCs, hypertension, hyperlipidemia, obstructive sleep apnea with poor CPAP compliance, bladder cancer was ruled out at [facility]. We have been asked to evaluate the patient for near syncope. Patient gives history that he has had more dizziness shortness of breath for the past couple of months. He states he stopped taking his beta-rodríguez for 2 weeks and was feeling better. His beta-rodríguez was at 50 mg/day and it was increased to 75 mg and then to 75 mg twice daily. He was in the office with Dr. Luna this week and the beta-rodríguez was increased to 3 times daily as well as Lasix was increased. He states his dizziness shortness of breath were worse and his heart rate was low. He states sometimes his heart rate with activity drops down to 3435 and his pulse ox. He states when he was in the office his pacemaker was checked and settings were moved to 60. He denies having any chest pain, chest pressure or chest tightness. He states that symptoms happen when he gets up to walk. He states he has decreased his activity and exercise because of lightheadedness. Patient also states that he has not been eating well because of decreased appetite and over the past 6 months is lost 60 pounds. -EKG: Paced rhythm, PVCs -Chest x-ray: Diffuse opacity could reflect CHF with mild interstitial pulmonary edema versus atypical pneumonia -Laboratory studies: WBC 7.1, hemoglobin 13. BUN 27, creatinine 1.25. Troponin 0.016. proBNP 40,100. TSH 3.59. -Home cardiac medications: Atorvastatin 40 mg at bedtime, Lasix 20 mg daily, losartan 50 mg daily, Lopressor 75 mg 3 times daily, Xarelto 20 mg at bedtime -Cardiac catheterization history: 03/2022 revealed slightly elevated filling pressure, no gradient, right dominant system with totally occluded RCA, LAD and circumflex, 70 to 75% left main disease, SVG to the PDA of RCA is patent and opacifies entire RCA including PLV branch, SVG to the left circumflex is a sequential 2 limbs patent, SVG to ramus not seen. SIMS to LAD patent. -Echocardiogram performed in the office 10/17/2022 reveals EF of 43%, inferior lateral and anterior septal hypokinesia, mild aortic stenosis. -Biventricular ICD [place] 05/16/2022. -Carotid duplex performed 08/01/2018 revealed 80 to 99% stenosis on the right and 50 to 79% stenosis on the left. 03/10/2024 Patient seen and examined. Patient had a 9 beat run of VT yesterday afternoon and 10 beat run this morning. Patient was asymptomatic. He has refused BB and states that he has less lightheadedness and has more energy. Patient is agreeable to take a lower dose of beta-rodríguez and he is agreeable to continue amiodarone. Discussed treatment options to recheck in the office and may consider increasing rate of pacemaker if patient's PVC burden is high.. Carotid duplex reveals likely within the bilateral carotid bifurcations moderate stenosis between 50 and 69% of the left internal carotid artery. No significant stenosis on the right internal carotid artery. Large plaques are present. Echocardiogram reveals EF of 25%, RVSP 58, mild right ventricular hypokinesis, mild mitral regurgitation, moderate to severe decreased aortic valve excursion with some degree of low-flow low gradient however likely more moderate. Moderate tricuspid regurgitation. Physical examination: Gen: This is an 83-year-old male in no acute distress VS: reviewed HEENT: Head is atraumatic, normocephalic. Pupils equal, round. Sclerae is anicteric. NECK: Supple. No JVD. LUNGS: Clear to auscultation. No wheezes or rhonchi. No intercostal retractions. HEART: Irregular rate and rhythm. Systolic murmur. ABDOMEN: Soft No tenderness. EXTREMITIES: No pedal edema. No calf tenderness. NEUROLOGICAL: Patient is awake, alert and oriented x3. 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 Patient will follow-up with Dr. SARINA Luna, consider event monitor to evaluate PVC burden May consider increasing rate of pacemaker to avoid PVCs which would be addressed in the office. Nurse practitioner note has been reviewed, I agree with documented findings and plan of care. Patient was seen and examined. Objective - Vital Signs Vital signs: Vital Signs Temp 97.1 F L 03/10/24 00:36 Pulse 69 03/10/24 01:16 Resp 22 03/10/24 01:16 BP 120/79 03/10/24 00:36 Pulse Ox 90 L 03/10/24 00:36 FiO2 Intake & Output 03/09/24 03/10/24 03/10/24 18:59 06:59 18:59 Weight 71.6 kg Other: Voiding Method Toilet Toilet # Voids 2 1 # Bowel Movements 0 0 - Labs CBC & Chem 7: 03/09/24 06:35 03/10/24 04:25
== END 2024-03-10 12:10 | disposition home or self-care (01) ==
LOC: EC 13:54 → 6NMEDSUR 17:24
PROVIDERS: ADMIT Hospitalist; ATTEND Hospitalist
DX: R42 Dizziness and giddiness (principal); R06.02 Shortness of breath; I65.22 Occlusion and stenosis of left carotid artery; I25.10 Atherosclerotic heart disease of native coronary artery without angina pectoris; E78.5 Hyperlipidemia, unspecified; I25.5 Ischemic cardiomyopathy; G47.33 Obstructive sleep apnea (adult) (pediatric); I48.0 Paroxysmal atrial fibrillation; I49.3 Ventricular premature depolarization; I11.0 Hypertensive heart disease with heart failure; I50.9 Heart failure, unspecified; N17.9 Acute kidney failure, unspecified; R63.4 Abnormal weight loss; Z68.24 Body mass index [BMI] 24.0-24.9, adult; Z87.891 Personal history of nicotine dependence; Z95.1 Presence of aortocoronary bypass graft; Z95.810 Presence of automatic (implantable) cardiac defibrillator; Z79.899 Other long term (current) drug therapy; Z79.01 Long term (current) use of anticoagulants; Z88.0 Allergy status to penicillin; Z88.1 Allergy status to other antibiotic agents
CPT/HCPCS: 99285; 36415; 93005; 93306; 83880; 80053; 80048 ×2; 84443; 83735 ×2; 84484; 85025 ×2; 85610; 85730; 71046; 93880; G0378 ×3

== ENCOUNTER 2024-03-11 06:33 | Inpatient (IN) | payer OTHER, MEDICARE ==
--- NOTE | 2024-03-11 07:10 | ED ---
General Adult HPI - General Chief complaint: Shortness of Breath Stated complaint: Difficulty Breathing Time Seen by Provider: 03/11/24 06:36 Source: patient, EMS, RN notes reviewed Mode of arrival: EMS Limitations: no limitations - History of Present Illness Initial comments: 83-year-old male presents emergency department via EMS chief complaint of shor tness of breath. Patient was recently discharged yesterday from the hospital after cardiac and lung issues. Patient has known CHF. Patient reportedly supposed to be discharged on oxygen but had no home O2. Patient was found by EMS to have pulse ox of 78 placed on nonrebreather. States did improve placed on 4 L of O2. Patient states that he still feels short of breath, increasing cough, dyspnea denies any leg pain or leg swelling he has had extensive weight loss which is known to his doctors. Patient states he does have some chest tightness. - Related Data Home Medications Medication Instructions Recorded Confirmed Atorvastatin [Lipitor] 40 mg PO HS 09/12/16 03/11/24 Furosemide [Lasix] 20 mg PO DAILY 01/22/21 03/11/24 Losartan Potassium 50 mg PO DAILY 01/22/21 03/11/24 Rivaroxaban [Xarelto] 20 mg PO HS 01/22/21 03/11/24 Ubidecarenone [Co Q-10] 100 mg PO DAILY 04/21/22 03/11/24 Albuterol Inhaler [Ventolin Hfa 2 puff INHALATION RT-Q6H PRN 03/08/24 03/11/24 Inhaler] [place]-3/Dha/Epa/Fish Oil [Fish Oil 1 cap PO DAILY 03/08/24 03/11/24 500 mg Softgel] Sertraline [Zoloft] 25 mg PO DAILY 03/08/24 03/11/24 Metoprolol Tartrate [Lopressor] 12.5 mg PO BID 03/11/24 03/11/24 Previous Rx's Medication Instructions Recorded Amiodarone [Cordarone] 200 mg PO DAILY #30 tab 03/10/24 Allergies Allergy/AdvReac Type Severity Reaction Status Date / Time Penicillins Allergy Anaphylaxis Verified 03/11/24 11:03 vancomycin AdvReac Itching Verified 03/11/24 11:03 Review of Systems ROS Statement: Those systems with pertinent positive or pertinent negative responses have been documented in the HPI. ROS Other: All systems not noted in ROS Statement are negative. Past Medical History Past Medical History: Hyperlipidemia, Hypertension, Osteoarthritis (OA) Additional Past Medical History / Comment(s): ABDOMINAL ANEURYSM, SNORES- STATES MILD BREATHING PROBLEMS AT NIGHT. , DIFFICULTY SWALLOWING- FEELS LIKE FOOD GETS STUCK. See Dr. Phan's H&P. Shingles 2 years ago. History of Any Multi-Drug Resistant Organisms: None Reported Past Surgical History: Bladder Surgery, Cholecystectomy, Coronary Bypass/CABG, Tonsillectomy Additional Past Surgical History / Comment(s): CABG X6 (2009), pacemaker in 2020 Past Anesthesia/Blood Transfusion Reactions: No Reported Reaction Past Psychological History: No Psychological Hx Reported, Anxiety, Depression Smoking Status: Former smoker Past Alcohol Use History: Occasional Past Drug Use History: None Reported - Past Family History Mother Family Medical History: Cancer Additional Family Medical History / Comment(s): OVARIAN WITH METS. General Exam Limitations: no limitations General appearance: alert, in no apparent distress Head exam: Present: atraumatic, normocephalic, normal inspection Eye exam: Present: normal appearance, PERRL, EOMI. Absent: scleral icterus, conjunctival injection, periorbital swelling ENT exam: Present: normal exam, mucous membranes moist Neck exam: Present: normal inspection, full ROM. Absent: tenderness, meningismus, lymphadenopathy Respiratory exam: Present: respiratory distress, wheezes, rales. Absent: normal lung sounds bilaterally, rhonchi, stridor Cardiovascular Exam: Present: regular rate, normal rhythm, normal heart sounds. Absent: systolic murmur, diastolic murmur, rubs, gallop, clicks GI/Abdominal exam: Present: soft, normal bowel sounds. Absent: distended, tenderness, guarding, rebound, rigid Course Vital Signs 03/11/24 03/11/24 03/11/24 06:42 07:26 09:27 Temperature 98.0 F Pulse Rate 76 79 77 Respiratory 26 H 20 18 Rate Blood Pressure 97/56 91/64 134/84 O2 Sat by Pulse 91 L 91 L 91 L Oximetry 03/11/24 11:24 Temperature Pulse Rate 72 Respiratory 18 Rate Blood Pressure 96/72 O2 Sat by Pulse 92 L Oximetry EKG Findings - EKG Comments: EKG Findings:: EKG performed at 6: 38 ventricular paced rate of 79 LA 202 QRS 150 QT/QTc 374/409 PVCs noted - EKG Results: EKG: interpreted by [facility] Medical Decision Making - Medical Decision Making Was pt. sent in by a medical professional or institution (, HUGO, RISK OFFICER, urgent care, hospital, or detention...) When possible be specific @ -No Did you speak to anyone other than the patient for history (EMS, parent, family, police, friend...)? What history was obtained from this source @ -No Did you review nursing and triage notes (agree or disagree)? Why? @ -I reviewed and agree with nursing and triage notes Were old charts reviewed (outside hosp., previous admission, EMS record, old EKG, old radiological studies, urgent care reports/EKG's, detention records)? Report findings @ -Reviewed inpatient records from 03/09-03/10 Differential Diagnosis (chest pain, altered mental status, abdominal pain women, abdominal pain men, vaginal bleeding, weakness, fever, dyspnea, syncope, headache, dizziness, GI bleed, back pain, seizure, CVA, palpatations, mental health, musculoskeletal)? @ -Differential Dyspnea: Coronary syndrome, arrhythmia, tamponade, asthma, COPD, pulmonary embolism, pneumonia, pneumothorax, pulmonary effusion, anaphylaxis, diabetic ketoacidosis, flailed chest, pulmonary contusion, diaphragmatic rupture, anemia, neuromuscular, this is not meant to be an all-inclusive list. EKG interpreted by me (3pts min.). @ -As above X-rays interpreted by me (1pt min.). @ -X-ray shows pulmonary edema CT interpreted by me (1pt min.). @ -None done U/S interpreted by me (1pt. min.). @ -None done What testing was considered but not performed or refused? (CT, X-rays, U/S, labs)? Why? @ -None What meds were considered but not given or refused? Why? @ -None Did you discuss the management of the patient with other professionals (professionals i.e. HUGO Mcghee, RISK OFFICER, lab, RT, psych nurse, social service technician, agriculture laborer, teacher, plant protection officer, community case manager)? Give summary @ -Discussed the case with [facility] for admission with cardiology consult. I did contact Dr. Luna with cardiology regarding patient's symptoms, initial troponin and second troponin with further elevation in which she was coming down to e valuate the patient. Was smoking cessation discussed for >3mins.? @ -No Was critical care preformed (if so, how long)? @ -[35 minutes Were there social determinants of health that impacted care today? How? (Homelessness, low income, unemployed, alcoholism, drug addiction, transportation, low edu. Level, literacy, decrease access to med. care, correction, rehab)? @ -No Was there de-escalation of care discussed even if they declined (Discuss DNR or withdrawal of care, Hospice)? DNR status @ -No What co-morbidities impacted this encounter? (DM, HTN, Smoking, COPD, CAD, Cancer, CVA, ARF, Chemo, Hep., AIDS, mental health diagnosis, sleep apnea, morbid obesity)? @ -CAD, CABG, CHF Was patient admitted / discharged? Hospital course, mention meds given and route, prescriptions, significant lab abnormalities, going to OR and other pertinent info. @ -Admitted patient presented for worsening dyspnea, hypoxia. Patient found to have CHF exacerbation with NSTEMI significant elevated second troponin. Patient is currently anticoagulated with extensive cardiac history cardiology and hospitalist were notified. Patient does not have any current chest pain. Patient was given Lasix Undiagnosed new problem with uncertain prognosis? @ -No Drug Therapy requiring intensive monitoring for toxicity (Heparin, Nitro, Insulin, Cardizem)? @ -No Were any procedures done? @ -No Diagnosis/symptom? @ -CHF exacerbation, NSTEMI, Acute, or Chronic, or Acute on Chronic? @ -Acute Uncomplicated (without systemic symptoms) or Complicated (systemic symptoms)? @ -Complicated Side effects of treatment? @ -No Exacerbation, Progression, or Severe Exacerbation? @ -Exacerbation Poses a threat to life or bodily function? How? (Chest pain, [place], [place], pneumonia, PE, COPD, DKA, ARF, appy, cholecystitis, CVA, Diverticulitis, Homicidal, Suicidal, threat to staff... and all critical care pts) @ -Yes CHF exacerbation, NSTEMI risk for cardiac function - Lab Data Result diagrams: 03/11/24 07:34 03/11/24 07:34 Lab Results 03/11/24 03/11/24 03/11/24 Range/Units 07:34 07:34 07:34 WBC 19.6 H (3.8-10.6) k/uL RBC 4.69 (4.30-5.90) m/uL Hgb 14.7 (13.0-17.5) gm/dL Hct 45.0 (39.0-53.0) % MCV 96.0 (80.0-100.0) fL MCH 31.3 (25.0-35.0) pg MCHC 32.6 (31.0-37.0) g/dL RDW 15.2 (11.5-15.5) % Plt Count 264 (150-450) k/uL MPV 7.3 Neutrophils % 92 % Lymphocytes % 5 % Monocytes % 3 % Eosinophils % 0 % Basophils % 0 % Neutrophils # 17.9 H (1.3-7.7) k/uL Lymphocytes # 0.9 L (1.0-4.8) k/uL Monocytes # 0.5 (0-1.0) k/uL Eosinophils # 0.1 (0-0.7) k/uL Basophils # 0.0 (0-0.2) k/uL Hypochromasia Slight PT 25.2 H (10.0-12.5) sec INR 2.5 H (<1.2) APTT 33.1 H (22.0-30.0) sec Sodium 139 (137-145) mmol/L Potassium 4.5 (3.5-5.1) mmol/L Chloride 105 (98-107) mmol/L Carbon Dioxide 27 (22-30) mmol/L Anion Gap 7 mmol/L BUN 31 H (9-20) mg/dL Creatinine 1.20 (0.66-1.25) mg/dL Est GFR (CKD-EPI)AfAm 64 (>60 ml/min/1.73 sqM) Est GFR (CKD-EPI)NonAf 56 (>60 ml/min/1.73 sqM) Glucose 123 H (74-99) mg/dL Calcium 8.9 (8.4-10.2) mg/dL Magnesium 1.5 L (1.6-2.3) mg/dL Total Bilirubin 1.7 H (0.2-1.3) mg/dL AST 35 (17-59) U/L ALT 30 (4-49) U/L Alkaline Phosphatase 116 (38-126) U/L Troponin I (0.000-0.034) ng/mL NT-Pro-B Natriuret Pep 19113 pg/mL Total Protein 7.2 (6.3-8.2) g/dL Albumin 3.1 L (3.5-5.0) g/dL 03/11/24 03/11/24 Range/Units 07:34 09:03 WBC (3.8-10.6) k/uL RBC (4.30-5.90) m/uL Hgb (13.0-17.5) gm/dL Hct (39.0-53.0) % MCV (80.0-100.0) fL MCH (25.0-35.0) pg MCHC (31.0-37.0) g/dL RDW (11.5-15.5) % Plt Count (150-450) k/uL MPV Neutrophils % % Lymphocytes % % Monocytes % % Eosinophils % % Basophils % % Neutrophils # (1.3-7.7) k/uL Lymphocytes # (1.0-4.8) k/uL Monocytes # (0-1.0) k/uL Eosinophils # (0-0.7) k/uL Basophils # (0-0.2) k/uL Hypochromasia PT (10.0-12.5) sec INR (<1.2) APTT (22.0-30.0) sec Sodium (137-145) mmol/L Potassium (3.5-5.1) mmol/L Chloride (98-107) mmol/L Carbon Dioxide (22-30) mmol/L Anion Gap mmol/L BUN (9-20) mg/dL Creatinine (0.66-1.25) mg/dL Est GFR (CKD-EPI)AfAm (>60 ml/min/1.73 sqM) Est GFR (CKD-EPI)NonAf (>60 ml/min/1.73 sqM) Glucose (74-99) mg/dL Calcium (8.4-10.2) mg/dL Magnesium (1.6-2.3) mg/dL Total Bilirubin (0.2-1.3) mg/dL AST (17-59) U/L ALT (4-49) U/L Alkaline Phosphatase (38-126) U/L Troponin I 0.123 H* 1.130 H* (0.000-0.034) ng/mL NT-Pro-B Natriuret Pep pg/mL Total Protein (6.3-8.2) g/dL Albumin (3.5-5.0) g/dL Critical Care Time Critical Care Time: Yes Total Critical Care Time: 35 Disposition Clinical Impression: NSTEMI (non-ST elevated myocardial infarction), CHF exacerbation, Hypoxia Disposition: ADMITTED IP TO THIS [facility] Condition: Poor Time of Disposition: 08:49
--- NOTE | 2024-03-11 07:29 | XR ---
EXAMINATION TYPE: XR chest 2V DATE OF EXAM: 03/11/2024 7:23 AM COMPARISON: Chest radiographs from 03/08/2024 CLINICAL INDICATION: Male, 83 years old with history of difficulty breathing; TECHNIQUE: XR chest 2V Frontal and lateral views of the chest. FINDINGS: Lungs/Pleura: No evidence of focal consolidation or pneumothorax. Blunting of the costophrenic angles is present. Pulmonary vascularity: Pulmonary vascular congestion. Heart/mediastinum: Cardiomediastinal silhouette is enlarged and stable. Three lead cardiac conduction device overlying the left hemithorax with lead tips projecting over the right ventricle, right atriu m and coronary sinus. Musculoskeletal: No acute osseous pathology. Midline sternotomy wires are noted. Other findings: None IMPRESSION: Cardiomegaly, pulmonary vascular congestion and bilateral pleural effusions. Correlate with BNP for c ongestive heart failure. [facility], , 03/11/2024 7:27 AM
[2024-03-11 07:40] LABS: Basophils % (A) 0 %; Eosinophils # (A) 0.1 k/uL (0-0.7); Eosinophils % (A) 0 %; HGB 14.7 gm/dL (13.0-17.5); Hypochromasia Slight; Lymphocytes # (A) 0.9 k/uL (1.0-4.8); Lymphocytes % (A) 5 %; MCH 31.3 pg (25.0-35.0); MCHC 32.6 g/dL (31.0-37.0); Mean Platelet Volume 7.3; Monocytes # (A) 0.5 k/uL (0-1.0); Monocytes % (A) 3 %; Neutrophils # (A) 17.9 k/uL (1.3-7.7); Neutrophils % (A) 92 %; Platelet Count 264 k/uL (150-450); RBC 4.69 m/uL (4.30-5.90); RDW 15.2 % (11.5-15.5); WBC 19.6 k/uL (3.8-10.6)
[2024-03-11] MEDS: FUROSEMIDE 10 MG/ML 4 ML VIAL IV STA (07:43)
[2024-03-11 07:51] LABS: INR 2.5 (<1.2); Partial Thromboplastin Time 33.1 sec (22.0-30.0); Prothrombin Time 25.2 sec (10.0-12.5)
[2024-03-11 08:17] LABS: ALT 30 U/L (4-49); African American GFR (CKD) 64 (>60 ml/min/1.73 sqM); Albumin 3.1 g/dL (3.5-5.0); Anion Gap 7 mmol/L; Blood Urea Nitrogen 31 mg/dL (9-20); Calcium 8.9 mg/dL (8.4-10.2); Carbon Dioxide 27 mmol/L (22-30); Chloride 105 mmol/L (98-107); Glucose 123 mg/dL (74-99); Non-African American GFR(CKD) 56 (>60 ml/min/1.73 sqM); Sodium 139 mmol/L (137-145); Total Bilirubin 1.7 mg/dL (0.2-1.3); Total Protein 7.2 g/dL (6.3-8.2)
[2024-03-11 08:21] LABS: AST 35 U/L (17-59); Alkaline Phosphatase 116 U/L (38-126); Magnesium 1.5 mg/dL (1.6-2.3); Potassium 4.5 mmol/L (3.5-5.1)
[2024-03-11 08:46] LABS: NT-Pro-B-Type Natriuretic Pept 31900 pg/mL
[2024-03-11] MEDS ORDERED: NITROGLYCERIN SL TABS 0.4 MG TAB SUBLINGUAL PRN ×2 (08:49→11:16)
[2024-03-11] MEDS: ASPIRIN 81 MG PO STA (09:27)
[2024-03-11] MEDS: MAGNESIUM OXIDE 400 MG TAB PO STA (09:28)
[2024-03-11] MEDS ORDERED: ALPRAZolam 0.25 MG TAB PO PRN (11:16)
[2024-03-11] MEDS ORDERED: ALPRAZolam 0.5 MG TAB PO PRN (11:16)
[2024-03-11 11:26] LABS: Appearance,Urine Clear (Clear); Bilirubin,Urine Negative (Negative); Blood,Urine Negative (Negative); Color,Urine Light Yellow; Glucose,Urine (UA) Negative (Negative); Ketones,Urine Negative (Negative); Leukocyte Esterase,Urine Negative (Negative); Nitrite,Urine Negative (Negative); PH, Urine 5.5 (5.0-8.0); Protein,Urine Negative (Negative); Specific Gravity,Urine 1.013 (1.001-1.035); Urobilinogen,Urine <2.0 mg/dL (<2.0)
[2024-03-11] MEDS: AMIODARONE 200 MG TAB PO SCH (11:45)
[2024-03-11] MEDS: SERTRALINE 25 MG TAB PO SCH (11:45)
--- NOTE | 2024-03-11 12:07 | P.CRDCN ---
History of Present Illness Consult date: 03/11/24 History of present illness: - . HPI: This is a 83-year-old gentleman with a known history of CAD prior bypass surgery, ischemic cardiomyopathy with ejection fraction usually in the range of 40%. He also has paroxysmal atrial fibrillation on Xarelto. He has frequent ventricular ectopy and was evaluated by electrophysiology. He has a biventricular ICD. He was seen by me in the office on the eighth when he came in with increasing shortness of breath. I advised that we will increase the diuresis send on device interrogation the device function was good but he was having frequent runs of short nonsustained VT therefore I increase the beta- rodríguez to 75 mg 3 times daily. The following day he came into the hospital again with increasing shortness of breath did not want to take the beta-rodríguez. He comes in again today with complains that he is having difficulty breathing his O2 saturation on the pulse oximeter was about 80. He is known to have severe obstructive sleep apnea and does not wear a CPAP even though he was advised multiple times. He is currently taking oxygen at night. On arrival his initial troponin was 0.1 went up to 1.1. There is an element of hypoxia which may have contributed to it but patient also has previous bypass surgery and his last cardiac cath in 2022 suggested that one of the vein graft to the ramus was occluded but the remaining grafts were patent. He also had an echo during his last visit. He was recently discharged only 24 hours ago and at that time echo revealed ejection fraction of 25%. He also has an abdominal aortic aneurysm as well which is stable and being followed noninvasively. He has a bladder cancer and has had previous surgery and follows up with his urologist. He has lost a significant amount of weight as well.. RELEVANT PAST MEDICAL HISTORY: Ischemic cardiomyopathy prior bypass surgery and recent cardiac cath from 2022 revealed that the vein graft to the ramus was not seen SIMS to LAD was patent, SVG to the PDA of RCA was patent and opacified the entire RCA including the PLV branch vein graft to the circumflex was a sequential graft to limbs were patent. He has hypertension hyperlipidemia bladder cancer and recent weight loss. He has significant PVCs and has a BiV ICD. Recent echo revealed ejection fraction in the 25% range.. MEDICATIONS: Xarelto 20 mg daily beta-rodríguez supposed to be 75 3 times daily but has been taking only 50 twice daily., losartan/HCTZ, atorvastatin 40 mg daily ALLERGIES: Insulin and vancomycin. REVIEW OF SYSTEMS:. PHYSICIAL EXAM: Physical exam revealed vitals are stable blood pressure which was low has come up to the 130 range systolic has JVD 1 cm no carotid bruit S1- S2 heard normally rhythm appears to be irregular short systolic murmur lungs reveal bilateral decent air entry abdomen is distended soft nontender lower EXTR reveal diminished pulses Central nervous system grossly no focal deficits. Laboratory data revealed elevated troponin and elevated white count. Urinalysis is pending. INR is 2.5. IMPRESSION: 1. Ischemic cardiomyopathy. 2. Obstructive sleep apnea with hypoxia and elevated troponin could be a type I or a type II non-ST elevation VT. 3. S/p aortocoronary bypass surgery. 4. Ventricular tachycardia on beta-blockers and BiV ICD. 5. Bladder cancer. RECOMMENDATIONS: We will continue to diurese the patient at 40 mg twice daily Lasix he is BNP is elevated. I will also hold Xarelto INR is 2.5 will perform c oronary angiogram either tomorrow or day after explained this to the patient including the risks benefits and rationale they understand and wish to proceed. Will seek input from urology regarding bladder cancer. I will repeat a INR and BMP tomorrow. Urinalysis is pending white count is elevated. Possible cath either tomorrow or day after discussed my thoughts in detail with the patient prognosis is guarded. Past Medical History Past Medical History: Hyperlipidemia, Hypertension, Osteoarthritis (OA) Additional Past Medical History / Comment(s): ABDOMINAL ANEURYSM, SNORES- STATES MILD BREATHING PROBLEMS AT NIGHT. , DIFFICULTY SWALLOWING- FEELS LIKE FOOD GETS STUCK. See Dr. Phan's H&P. Deepa 2 years ago. History of Any Multi-Drug Resistant Organisms: None Reported Past Surgical History: Bladder Surgery, Cholecystectomy, Coronary Bypass/CABG, Tonsillectomy Additional Past Surgical History / Comment(s): CABG X6 (2009), pacemaker in 2020 Past Anesthesia/Blood Transfusion Reactions: No Reported Reaction Past Psychological History: No Psychological Hx Reported, Anxiety, Depression Smoking Status: Former smoker Past Alcohol Use History: Occasional Past Drug Use History: None Reported - Past Family History Mother Family Medical History: Cancer Additional Family Medical History / Comment(s): OVARIAN WITH METS. Medications and Allergies Home Medications Medication Instructions Recorded Confirmed Type Atorvastatin [Lipitor] 40 mg PO HS 09/12/16 03/11/24 History Furosemide [Lasix] 20 mg PO DAILY 01/22/21 03/11/24 History Losartan Potassium 50 mg PO DAILY 01/22/21 03/11/24 History Rivaroxaban [Xarelto] 20 mg PO HS 01/22/21 03/11/24 History Ubidecarenone [Co Q-10] 100 mg PO DAILY 04/21/22 03/11/24 History Albuterol Inhaler [Ventolin Hfa 2 puff INHALATION RT-Q6H PRN 03/08/24 03/11/24 History Inhaler] [place]-3/Dha/Epa/Fish Oil [Fish Oil 1 cap PO DAILY 03/08/24 03/11/24 History 500 mg Softgel] Sertraline [Zoloft] 25 mg PO DAILY 03/08/24 03/11/24 History Amiodarone [Cordarone] 200 mg PO DAILY #30 tab 03/10/24 03/11/24 Rx Metoprolol Tartrate [Lopressor] 12.5 mg PO BID 03/11/24 03/11/24 History Allergies Allergy/AdvReac Type Severity Reaction Status Date / Time Penicillins Allergy Anaphylaxis Verified 03/11/24 11:03 vancomycin AdvReac Itching Verified 03/11/24 11:03 Physical Exam Vitals: Vital Signs Temp Pulse Resp BP Pulse Ox 03/11/24 11:24 72 18 96/72 92 L 03/11/24 09:27 77 18 134/84 91 L 03/11/24 07:26 79 20 91/64 91 L 03/11/24 06:42 98.0 F 76 26 H 97/56 91 L Intake and Output 03/10/24 03/11/24 03/11/24 22:59 06:59 14:59 Other: Weight 72.575 kg Results 03/11/24 07:34 03/11/24 07:34 Cardiac Enzymes 03/11/24 03/11/24 03/11/24 Range/Units 07:34 07:34 09:03 AST 35 (17-59) U/L Troponin I 0.123 H* 1.130 H* (0.000-0.034) ng/mL Coagulation 03/11/24 Range/Units 07:34 PT 25.2 H (10.0-12.5) sec APTT 33.1 H (22.0-30.0) sec CBC 03/11/24 Range/Units 07:34 WBC 19.6 H (3.8-10.6) k/uL RBC 4.69 (4.30-5.90) m/uL Hgb 14.7 (13.0-17.5) gm/dL Hct 45.0 (39.0-53.0) % Plt Count 264 (150-450) k/uL Comprehensive Metabolic Panel 03/11/24 Range/Units 07:34 Sodium 139 (137-145) mmol/L Potassium 4.5 (3.5-5.1) mmol/L Chloride 105 (98-107) mmol/L Carbon Dioxide 27 (22-30) mmol/L BUN 31 H (9-20) mg/dL Creatinine 1.20 (0.66-1.25) mg/dL Glucose 123 H (74-99) mg/dL Calcium 8.9 (8.4-10.2) mg/dL AST 35 (17-59) U/L ALT 30 (4-49) U/L Alkaline Phosphatase 116 (38-126) U/L Total Protein 7.2 (6.3-8.2) g/dL Albumin 3.1 L (3.5-5.0) g/dL Current Medications Generic Name Dose Route Start Last Admin Trade Name Freq PRN Reason Stop Dose Admin Alprazolam 0.25 mg 03/11/24 11:16 Alprazolam 0.25 Mg Tab PO Q6HR PRN Mild Anxiety Alprazolam 0.5 mg 03/11/24 11:16 Alprazolam 0.5 Mg Tab PO Q6HR PRN Moderate Anxiety Amiodarone HCl 200 mg 03/11/24 11:15 03/11/24 11:45 Amiodarone 200 Mg Tab PO 200 mg DAILY [facility] Administration Aspirin 81 mg 03/12/24 09:00 Aspirin 81 Mg PO DAILY [facility] Aspirin 81 mg 03/12/24 07:00 Aspirin 81 Mg PO 03/12/24 07:01 ONCE ONE Atorvastatin Calcium 40 mg 03/11/24 21:00 Atorvastatin 40 Mg Tab PO HS [facility] Atorvastatin Calcium 80 mg 03/12/24 07:00 Atorvastatin 80 Mg Tab PO 03/12/24 07:01 ONCE ONE Furosemide 40 mg 03/11/24 21:00 Furosemide 10 Mg/Ml 4 Ml Vial IV Q12HR ALBER Heparin Sodium (Porcine) 10, 1,001 mls @ 999 mls/hr 03/12/24 07:00 000 unit/ Sodium Chloride IRRIGATION 03/12/24 23:00 ONCE PRN INTRA-OP Heparin Sodium (Porcine) 2,500 250.5 mls @ 250 mls/hr 03/12/24 07:00 unit/ Sodium Chloride IRRIGATION 03/12/24 23:00 ONCE PRN INTRA-OP Losartan Potassium 50 mg 03/12/24 09:00 Losartan 50 Mg Tab PO DAILY [facility] Metoprolol Tartrate 50 mg 03/11/24 21:00 Metoprolol Tartrate 50 Mg Tab PO BID ALBER Nitroglycerin 0.4 mg 03/11/24 08:49 Nitroglycerin Sl Tabs 0.4 Mg Tab SUBLINGUAL Q5M PRN Chest Pain Sertraline HCl 25 mg 03/11/24 11:30 03/11/24 11:45 Sertraline 25 Mg Tab PO 25 mg DAILY [facility] Administration Intake and Output 03/10/24 03/11/24 03/11/24 22:59 06:59 14:59 Other: Weight 72.575 kg 03/11/24 07:34 03/11/24 07:34
--- NOTE | 2024-03-11 14:28 | P.HPIM ---
History of Present Illness 83-year-old male came in with complaints of shortness of breath found to be in congestive heart failure as well as non-ST elevation myocardial infarction with initial troponin being 0.123 followed by 1.13 and 2.050. Patient was discharged yesterday from the hospital after he was evaluated for lightheadedness and dizziness and patient had issues with bradycardia and episodes of nonsustained VT because of which patient was started on amiodarone dose of metoprolol was decreased and patient did not tolerate metoprolol very well in the past when the dose was increased. Patient has extensive cardiac history with coronary artery disease ischemically myopathy EF of around 25% with an biventricular AICD. Patient had a cardiac catheterization with CABG in the past recent cardiac cath showed the vein graft to ramus was occluded.. REVIEW OF SYSTEMS: All other systems are negative except those mentioned in the HPI PHYSICAL EXAMINATION: GENERAL: The patient is alert and oriented x3, not in any acute distress. Well developed, well nourished. HEENT: Pupils are round and equally reacting to light. EOMI. No scleral icterus. No conjunctival pallor. Normocephalic, atraumatic. No pharyngeal erythema. No thyromegaly. CARDIOVASCULAR: S1 and S2 present. No murmurs, rubs, or gallops. PULMONARY: Chest is clear to auscultation, no wheezing or crackles. ABDOMEN: Soft, nontender, nondistended, normoactive bowel sounds. No palpable organomegaly. MUSCULOSKELETAL: No joint swelling or deformity. EXTREMITIES: No cyanosis, clubbing, or pedal edema. NEUROLOGICAL: Gross neurological examination did not reveal any focal deficits. SKIN: No rashes. Assessment and plan -Acute non-ST elevation myocardial infarction patient's Xarelto is being held patient was started on IV heparin patient did undergo cardiac catheterization tomorrow -Acute hypoxic respiratory failure secondary to congestive heart failure chronic systolic function EF of around 20 to 25% with acute exacerbation patient has ischemic cardiomyopathy patient is on IV Lasix at this time -Coronary artery disease status post bypass surgery in the past -Episodes of nonsustained VT for which patient is on amiodarone patient has a BiV ICD Hypomagnesemia magnesium will be replaced Paroxysmal atrial fibrillation on anticoagulation which is being held and patient is on IV heparin -Depression for which patient is on sertraline which will be resumed Leukocytosis reactive DVT prophylaxis: Patient is on IV heparin Past Medical History Past Medical History: Hyperlipidemia, Hypertension, Osteoarthritis (OA) Additional Past Medical History / Comment(s): ABDOMINAL ANEURYSM, SNORES- STATES MILD BREATHING PROBLEMS AT NIGHT. , DIFFICULTY SWALLOWING- FEELS LIKE FOOD GETS STUCK. See Dr. Phan's H&P. Shingles 2 years ago. History of Any Multi-Drug Resistant Organisms: None Reported Past Surgical History: Bladder Surgery, Cholecystectomy, Coronary Bypass/CABG, Tonsillectomy Additional Past Surgical History / Comment(s): CABG X6 (2009), pacemaker in 2020 Past Anesthesia/Blood Transfusion Reactions: No Reported Reaction Past Psychological History: No Psychological Hx Reported, Anxiety, Depression Smoking Status: Former smoker Past Alcohol Use History: Occasional Past Drug Use History: None Reported - Past Family History Mother Family Medical History: Cancer Additional Family Medical History / Comment(s): OVARIAN WITH METS. Medications and Allergies Home Medications Medication Instructions Recorded Confirmed Type Atorvastatin [Lipitor] 40 mg PO HS 09/12/16 03/11/24 History Furosemide [Lasix] 20 mg PO DAILY 01/22/21 03/11/24 History Losartan Potassium 50 mg PO DAILY 01/22/21 03/11/24 History Rivaroxaban [Xarelto] 20 mg PO HS 01/22/21 03/11/24 History Ubidecarenone [Co Q-10] 100 mg PO DAILY 04/21/22 03/11/24 History Albuterol Inhaler [Ventolin Hfa 2 puff INHALATION RT-Q6H PRN 03/08/24 03/11/24 History Inhaler] [place]-3/Dha/Epa/Fish Oil [Fish Oil 1 cap PO DAILY 03/08/24 03/11/24 History 500 mg Softgel] Sertraline [Zoloft] 25 mg PO DAILY 03/08/24 03/11/24 History Amiodarone [Cordarone] 200 mg PO DAILY #30 tab 03/10/24 03/11/24 Rx Metoprolol Tartrate [Lopressor] 12.5 mg PO BID 03/11/24 03/11/24 History Allergies Allergy/AdvReac Type Severity Reaction Status Date / Time Penicillins Allergy Anaphylaxis Verified 03/11/24 11:03 vancomycin AdvReac Itching Verified 03/11/24 11:03 Physical Exam Vitals: Vital Signs Temp Pulse Resp BP Pulse Ox 03/11/24 11:24 72 18 96/72 92 L 03/11/24 09:27 77 18 134/84 91 L 03/11/24 07:26 79 20 91/64 91 L 03/11/24 06:42 98.0 F 76 26 H 97/56 91 L Intake and Output 03/10/24 03/11/24 03/11/24 22:59 06:59 14:59 Other: Weight 72.575 kg Results CBC & Chem 7: 03/11/24 07:34 03/11/24 07:34 Labs: Abnormal Lab Results - Last 24 Hours (Table) 03/11/24 03/11/24 03/11/24 Range/Units 07:34 07:34 07:34 WBC 19.6 H (3.8-10.6) k/uL Neutrophils # 17.9 H (1.3-7.7) k/uL Lymphocytes # 0.9 L (1.0-4.8) k/uL PT 25.2 H (10.0-12.5) sec INR 2.5 H (<1.2) APTT 33.1 H (22.0-30.0) sec BUN 31 H (9-20) mg/dL Glucose 123 H (74-99) mg/dL Magnesium 1.5 L (1.6-2.3) mg/dL Total Bilirubin 1.7 H (0.2-1.3) mg/dL Troponin I (0.000-0.034) ng/mL Albumin 3.1 L (3.5-5.0) g/dL 03/11/24 03/11/24 03/11/24 Range/Units 07:34 09:03 11:36 WBC (3.8-10.6) k/uL Neutrophils # (1.3-7.7) k/uL Lymphocytes # (1.0-4.8) k/uL PT (10.0-12.5) sec INR (<1.2) APTT (22.0-30.0) sec BUN (9-20) mg/dL Glucose (74-99) mg/dL Magnesium (1.6-2.3) mg/dL Total Bilirubin (0.2-1.3) mg/dL Troponin I 0.123 H* 1.130 H* 2.050 H* (0.000-0.034) ng/mL Albumin (3.5-5.0) g/dL
[2024-03-11] MEDS: MAGNESIUM SULFATE-D5W PMX 1 GM in DEXTROSE/WATER 1 100ML.BAG IVPB SCH (14:36)
[2024-03-11] MEDS: METOPROLOL TARTRATE 50 MG TAB PO SCH (20:19)
[2024-03-11] MEDS: FUROSEMIDE 10 MG/ML 4 ML VIAL IV SCH (20:19)
[2024-03-11] MEDS: ATORVASTATIN 40 MG TAB PO SCH (20:30)
[2024-03-11] MEDS ORDERED: METOPROLOL TARTRATE 12.5 MG TAB PO SCH (21:00)
[2024-03-11 23:59] LABS: Glucose,Whole Blood 93 mg/dL (70-110)
[2024-03-12 06:55] LABS: HCT 42.3 % (39.0-53.0); HGB 13.8 gm/dL (13.0-17.5); Hypochromasia Slight; MCH 31.6 pg (25.0-35.0); MCHC 32.5 g/dL (31.0-37.0); Mean Platelet Volume 7.5; Platelet Count 193 k/uL (150-450); RBC 4.36 m/uL (4.30-5.90); RDW 15.3 % (11.5-15.5); WBC 7.5 k/uL (3.8-10.6)
[2024-03-12] MEDS ORDERED: HEPARIN SODIUM,PORCINE (1 ML) 2,500 UNIT in SODIUM CHLORIDE 0.9% 250 ML IRRIGATION PRN (07:00)
[2024-03-12] MEDS ORDERED: HEPARIN SODIUM,PORCINE 10,000 UNIT in SODIUM CHLORIDE 0.9% 1,000 ML IRRIGATION PRN (07:00)
[2024-03-12] MEDS: ATORVASTATIN 80 MG TAB PO ONE ×2 (07:06→10:31)
[2024-03-12] MEDS: ASPIRIN 81 MG PO ONE (07:06)
[2024-03-12 07:15] LABS: African American GFR (CKD) 62 (>60 ml/min/1.73 sqM); Anion Gap 6 mmol/L; Blood Urea Nitrogen 28 mg/dL (9-20); Calcium 8.5 mg/dL (8.4-10.2); Carbon Dioxide 30 mmol/L (22-30); Chloride 104 mmol/L (98-107); Glucose 86 mg/dL (74-99); Non-African American GFR(CKD) 54 (>60 ml/min/1.73 sqM); Potassium 3.8 mmol/L (3.5-5.1); Sodium 140 mmol/L (137-145)
[2024-03-12 07:20] LABS: INR 1.6 (<1.2); Prothrombin Time 16.2 sec (10.0-12.5)
[2024-03-12] MEDS: LOSARTAN 50 MG TAB PO SCH (08:11)
[2024-03-12] MEDS: ASPIRIN 81 MG PO SCH (08:11)
--- NOTE | 2024-03-12 08:41 | US ---
EXAMINATION TYPE: US duplex aorta DATE OF EXAM: 03/12/2024 Exam done portable in ICU COMPARISON: NONE CLINICAL INDICATION: Male, 83 years old with history of Measure Aortic Abdominal Aneuryism; abdominal aortic aneurysm. TECHNIQUE: Multiple sonographic images of the abdominal aorta are obtained with grayscale and color D oppler imaging. FINDINGS: EXAM MEASUREMENTS: Abdominal Aorta: Proximal: obscured by overlying midline bowel gas Mid: 2.3 x 2.0cm Distal: AAA - 4.7 x 5.6cm with a length of 9.7cm Bifurcation: Right Iliac: 1.1 x 1.4cm Left Iliac: 1.1 x 1.5cm IMPRESSION: Infrarenal abdominal aortic aneurysm measuring up to 5.6 cm. [facility], , 03/12/2024 8:39 AM
--- NOTE | 2024-03-12 08:46 | P.GSCN ---
History of Present Illness Consult date: 03/12/24 Reason for Consult: Bladder cancer History of present illness: This is an 83-year-old male with a remote history of bladder cancer which is con sulted for his bladder cancer, and weight loss. Per patient he follows up with [place] [facility] with Dr. Dukes, indicated he had a recent cystoscopy within the past month that showed no evidence of bladder cancer recurrence. Denies any voiding difficulties. Denies any gross hematuria or dysuria. To his knowledge no evidence of muscle invasive bladder cancer disease but he rather has a superficial disease. Urinalysis on presentation showed no evidence of microscopic hematuria. Review of Systems - Constitutional Denies fever, Denies weight loss - EENT Ears, nose, mouth and throat: Denies dysphagia - Cardiovascular Reports shortness of breath, Denies chest pain - Respiratory Reports dyspnea, Denies cough - Gastrointestinal Reports as per HPI - Genitourinary Denies dysuria, Denies hematuria - Integumentary Denies rash, Denies unusual bruising - Neurological Denies headaches, Denies syncope Past Medical History Past Medical History: Coronary Artery Disease (CAD), Cancer, Hyperlipidemia, Hypertension, Osteoarthritis (OA) Additional Past Medical History / Comment(s): ABDOMINAL ANEURYSM, SNORES- STATES MILD BREATHING PROBLEMS AT NIGHT. , DIFFICULTY SWALLOWING- FEELS LIKE FOOD GETS STUCK. See Dr. Phan's H&P. Shingles 2 years ago. History of Any Multi-Drug Resistant Organisms: None Reported Past Surgical History: Bladder Surgery, Cholecystectomy, Coronary Bypass/CABG, Tonsillectomy Additional Past Surgical History / Comment(s): CABG X6 (2009), pacemaker in 2020 Past Anesthesia/Blood Transfusion Reactions: No Reported Reaction Past Psychological History: No Psychological Hx Reported, Anxiety, Depression Smoking Status: Former smoker Past Alcohol Use History: Occasional Additional Past Alcohol Use History / Comment(s): Quit smoking 20 years ago. Past Drug Use History: None Reported - Past Family History Mother Family Medical History: Cancer Additional Family Medical History / Comment(s): OVARIAN WITH METS. Medications and Allergies Home Medications Medication Instructions Recorded Confirmed Type Atorvastatin [Lipitor] 40 mg PO HS 09/12/16 03/11/24 History Furosemide [Lasix] 20 mg PO DAILY 01/22/21 03/11/24 History Losartan Potassium 50 mg PO DAILY 01/22/21 03/11/24 History Rivaroxaban [Xarelto] 20 mg PO HS 01/22/21 03/11/24 History Ubidecarenone [Co Q-10] 100 mg PO DAILY 04/21/22 03/11/24 History Albuterol Inhaler [Ventolin Hfa 2 puff INHALATION RT-Q6H PRN 03/08/24 03/11/24 History Inhaler] [place]-3/Dha/Epa/Fish Oil [Fish Oil 1 cap PO DAILY 03/08/24 03/11/24 History 500 mg Softgel] Sertraline [Zoloft] 25 mg PO DAILY 03/08/24 03/11/24 History Amiodarone [Cordarone] 200 mg PO DAILY #30 tab 03/10/24 03/11/24 Rx Metoprolol Tartrate [Lopressor] 12.5 mg PO BID 03/11/24 03/11/24 History Allergies Allergy/AdvReac Type Severity Reaction Status Date / Time Penicillins Allergy Anaphylaxis Verified 03/11/24 11:03 vancomycin AdvReac Itching Verified 03/11/24 11:03 Surgical - Exam Vital Signs Temp Pulse Resp BP Pulse Ox 98.0 F 76 26 H 97/56 91 L 03/11/24 06:42 03/11/24 06:42 03/11/24 06:42 03/11/24 06:42 03/11/24 06:42 - General no distress, no pain - Eyes normal ocular movement, no pale - ENT normal nares, normal mucosa - Respiratory normal expansion, normal respiratory effort - Abdomen Abdomen: soft, non tender, no distended - Psychiatric oriented to time, oriented to person, oriented to place Results - Labs 03/12/24 06:21 03/12/24 06:21 Abnormal Lab Results - Last 24 Hours (Table) 03/11/24 03/11/24 03/12/24 Range/Units 09:03 11:36 06:21 PT 16.2 H (10.0-12.5) sec INR 1.6 H (<1.2) BUN (9-20) mg/dL Troponin I 1.130 H* 2.050 H* (0.000-0.034) ng/mL 03/12/24 Range/Units 06:21 PT (10.0-12.5) sec INR (<1.2) BUN 28 H (9-20) mg/dL Troponin I (0.000-0.034) ng/mL Diabetes panel 03/12/24 Range/Units 06:21 Sodium 140 (137-145) mmol/L Potassium 3.8 (3.5-5.1) mmol/L Chloride 104 (98-107) mmol/L Carbon Dioxide 30 (22-30) mmol/L BUN 28 H (9-20) mg/dL Creatinine 1.24 (0.66-1.25) mg/dL Glucose 86 (74-99) mg/dL Calcium 8.5 (8.4-10.2) mg/dL Calcium panel 03/12/24 Range/Units 06:21 Calcium 8.5 (8.4-10.2) mg/dL Pituitary panel 03/12/24 Range/Units 06:21 Sodium 140 (137-145) mmol/L Potassium 3.8 (3.5-5.1) mmol/L Chloride 104 (98-107) mmol/L Carbon Dioxide 30 (22-30) mmol/L BUN 28 H (9-20) mg/dL Creatinine 1.24 (0.66-1.25) mg/dL Glucose 86 (74-99) mg/dL Calcium 8.5 (8.4-10.2) mg/dL Adrenal panel 03/12/24 Range/Units 06:21 Sodium 140 (137-145) mmol/L Potassium 3.8 (3.5-5.1) mmol/L Chloride 104 (98-107) mmol/L Carbon Dioxide 30 (22-30) mmol/L BUN 28 H (9-20) mg/dL Creatinine 1.24 (0.66-1.25) mg/dL Glucose 86 (74-99) mg/dL Calcium 8.5 (8.4-10.2) mg/dL Assessment and Plan Assessment: This is an 83-year-old male with a remote history of bladder cancer, follows up with [place] [facility], per patient he had a cystoscopy done by Dr. Dukes recently within the past month that showed no evidence of bladder cancer recurrence. This point he has no voiding symptoms or gross hematuria. Patient has no evidence of bladder cancer recurrence at this time, especially given his recent negative cystoscopy. Patient appears to have more superficial disease rather than muscle invasive bladder disease, he is unlikely to have metastatic disease to explain his weight loss. From urology standpoint no further intervention is needed, can consider a CT abdomen and pelvis if there is no etiology of his weight loss to evaluate for any intra-abdominal processes. He should follow-up with his urologist as an outpatient
--- NOTE | 2024-03-12 08:52 | P.PN ---
Subjective Progress Note Date: 03/12/24 HPI: This gentleman has ischemic cardiomyopathy prior bypass surgery. He also has obstructive sleep apnea does not wear CPAP regularly. He has ventricular ectopy and a BiV ICD. He is here because of increasing shortness of breath but since yesterday he feels well he is in what seems to be a paced rhythm with less frequent PVCs. Renal function is fairly stable in spite of diuresis. He is going for coronary angiogram today. His INR is 1.6. Xarelto has been held for nearly 36 hours. Coronary angiogram today from femoral approach she has abdominal aortic aneurysm I will do an ultrasound to check that. Patient understands the rationale risk benefits options and wishes to proceed with the procedure. PHYSICIAL EXAM: Stable vital signs JVD once to 2 cm no carotid bruit S1-S2 with a short systolic murmur lungs reveal decent air entry abdomen is soft lower extremities reveal diminished pulses Central nervous system is normal. IMPRESSION: 1. Ischemic cardiomyopathy status post bypass surgery. 2. Ventricular ectopy and short runs of nonsustained VT which have improved with beta-blockers. 3. Obstructive sleep apnea does not wear CPAP. 4. Bladder cancer. 5.. RECOMMENDATIONS: Continue current therapy coronary angiogram today patient understands all details and wishes to proceed. Objective - Vital Signs Vital signs: Vital Signs Temp 97.8 F 03/12/24 04:00 Pulse 71 03/12/24 04:00 Resp 116 H 03/12/24 04:00 BP 116/73 03/12/24 04:00 Pulse Ox 90 L 03/11/24 23:28 FiO2 Intake & Output 03/11/24 03/12/24 03/12/24 18:59 06:59 18:59 Output Total 100 Balance -100 Weight 71.5 kg Output: Urine 100 Other: Voiding Method Urinal - Labs CBC & Chem 7: 03/12/24 06:21 03/12/24 06:21 Labs: Abnormal Lab Results - Last 24 Hours (Table) 03/11/24 03/11/24 03/12/24 Range/Units 09:03 11:36 06:21 PT 16.2 H (10.0-12.5) sec INR 1.6 H (<1.2) BUN (9-20) mg/dL Troponin I 1.130 H* 2.050 H* (0.000-0.034) ng/mL 03/12/24 Range/Units 06:21 PT (10.0-12.5) sec INR (<1.2) BUN 28 H (9-20) mg/dL Troponin I (0.000-0.034) ng/mL
[2024-03-12] MEDS ORDERED: ASPIRIN 325 MG TAB PO SCH (09:00)
[2024-03-12] MEDS: IV FLUID CONTINUATION 950 ML IV ONE (10:40)
[2024-03-12] MEDS: MIDAZOLAM 2 MG/2 ML VIAL IVP ONE (10:51)
[2024-03-12] MEDS: LIDOCAINE 1% INJ 10MG/ML (20 ML MDV) SQ ONE (10:57)
[2024-03-12 11:04] VITALS: BMI 23.9
[2024-03-12] MEDS: IOPAMIDOL-370 100ML BTL IVP ONE (11:20)
[2024-03-12] MEDS: IOPAMIDOL-370 100ML BTL INJ ONE ×3 (11:20→11:29)
--- NOTE | 2024-03-12 12:31 | CC ---
CARDIAC CATHETERIZATION REPORT Date of Procedure: 03/12/24 PROCEDURES PERFORMED: 1. Left heart catheterization and coronary angiography. 2. Selective injection of left internal mammary artery graft and saphenous vein grafts. PERFORMED BY: Dr. Renan Luna. ANESTHESIA: Moderate conscious sedation time was 38 minutes. The patient was administered Versed. Oxygen saturation, hemodynamics, and EKG were monitored closely. CLINICAL INFORMATION: Mr. Jameel Salazar is an 83-year-old gentleman with a known history of CAD, hypertension, hyperlipidemia with previous aortocoronary bypass surgery performed in [place], [place] in September 2010. He had a total of 5 grafts, one of which was a sequential vein graft. He had a SIMS to LAD, sequential vein graft to the obtuse marginal and distal circumflex, a vein graft to the PDA branch of circumflex and another vein graft to the ramus intermedius. I performed a cardiac cath in March 2022 and at that time, I could not visualize the vein graft to the ramus intermedius. He has also had significant ventricular ectopy, has a biventricular ICD, was seen by Dr. Phan. He has been having episodes of increasing shortness of breath. He has lost weight. Unfortunately, he is not compliant with CPAP. Because of presentation with shortness of breath and elevated troponin of more than 2.0, suggestive of a non-ST- elevation GA, he was advised coronary angiography after due discussion regarding risks, benefits, options with the patient and . PROCEDURE NOTE: Under local anesthesia and strict aseptic precautions, a 6-Scottish introducer was placed in the right femoral artery using ultrasound assistance. A JL4 catheter was used to perform selective coronary injection of the left system. A Nemo catheter was used to perform selective coronary angiography of the right coronary artery, vein graft to the PDA, vein graft to the obtuse marginal, and distal circumflex, vein graft to the ramus. The same catheter was used for a SIMS injection, but I performed a subselective injection of the SIMS because of heavy calcification in the aortic knuckle. Following this, I used a pigtail catheter to check LV pressures. LV-gram was not performed. The patient tolerated the procedure well. The sheath was taken out and manual compression and FemoStop applied. No complications. Results were discussed with the patient and . CARDIAC CATHETERIZATION FINDINGS: The left ventricular end-diastolic pressure was 13 to 14 mmHg without any gradient across the aortic valve. CORONARY ANGIOGRAPHY FINDINGS: Left main coronary artery: This is a patent vessel. No significant disease. It bifurcates into LAD and circumflex. Left anterior descending coronary artery: This vessel is totally occluded in the midportion, has competitive filling for a SIMS. Prior to the total occlusion, there is a 50% lesion in the LAD. Left posterior circumflex coronary artery: This vessel is totally occluded without much antegrade flow. The opacified segment is heavily calcified. , Right coronary artery: Dominant vessel, very tortuous, totally occluded in the midportion with heavy disease and calcification proximally. Saphenous vein graft to the circumflex marginal and distal circumflex: This graft is widely patent, has 2 attachments, both of which are patent. There is no significant disease and good flow noted. This graft visually is comparable to the previous study from March 2022. Saphenous vein graft to the PDA branch of RCA: This graft is widely patent with good flow, opacifies the PLV as well, which has a diffuse disease, but the PDA is free of significant disease. The graft looks very healthy. Saphenous vein graft to the ramus intermedius: This graft is widely patent with good flow. No significant disease. Left internal mammary artery graft to LAD: This graft is widely patent and I performed a subselective injection. Good flow all the way to the apex into the LAD. No significant disease. Left ventriculogram was not performed. FINAL IMPRESSION: This patient has acceptable filling pressures. No gradient. Right-dominant system with total occlusion of RCA, LAD and circumflex. The left main has some distal disease. Vein graft to the PDA branch of RCA is patent with good flow and entire opacification of the PLV also noted. Vein graft to the ramus intermedius was identified on this study and is widely patent. The vein graft to the circumflex marginal and distal circumflex with 2 attachments is widely patent. RECOMMENDATIONS: Continued medical therapy with risk factor modification. I will also see if he can suppress the PVCs with a combination of mexiletine and amiodarone and we will also seek pulmonary involvement for CPAP. The patient is more receptive to this. MMODL / IJN: [id number] / MTDElliott
[2024-03-12] MEDS: SODIUM CHLORIDE 0.9% 1,000 ML IV SCH (13:10)
[2024-03-12] MEDS: POTASSIUM CHLORIDE ER 20 MEQ TAB.ER PO STA (13:26)
--- NOTE | 2024-03-12 15:06 | P.PN ---
Subjective Progress Note Date: 03/12/24 83-year-old male came in with complaints of shortness of breath found to be in congestive heart failure as well as non-ST elevation myocardial infarction with initial troponin being 0.123 followed by 1.13 and 2.050. Patient was discharged yesterday from the hospital after he was evaluated for lightheadedness and dizziness and patient had issues with bradycardia and episodes of nonsustained VT because of which patient was started on amiodarone dose of metoprolol was decreased and patient did not tolerate metoprolol very well in the past when the dose was increased. Patient has extensive cardiac history with coronary artery disease ischemically myopathy EF of around 25% with an biventricular AICD. Patient had a cardiac catheterization with CABG in the past recent cardiac cath showed the vein graft to ramus was occluded.. 03/13/2024 Patient is evaluated today in follow up in the ICU evaluated post cardiac catheterization revealing patent grafts. Patient is currently not having any chest pain. INR 1.6. BUN 28 creatinine 1.24. Review of Systems Constitutional: Denied any fatigue denied any fever. Cardio vascular: denied any chest pain, palpitations Gastrointestinal: denied any nausea, vomiting, diarrhea Pulmonary: Denied any shortness of breath cough Neurologic denied any new focal deficits All inpatient medications were reviewed and appropriate changes in these medications as dictated in the interval history and assessment and plan. PHYSICAL EXAMINATION: GENERAL: The patient is alert and oriented x3, not in any acute distress. Well developed, well nourished. HEENT: Pupils are round and equally reacting to light. EOMI. No scleral icterus. No conjunctival pallor. Normocephalic, atraumatic. No pharyngeal erythema. No thyromegaly. CARDIOVASCULAR: S1 and S2 present. No murmurs, rubs, or gallops. PULMONARY: Chest is clear to auscultation, no wheezing or crackles. ABDOMEN: Soft, nontender, nondistended, normoactive bowel sounds. No palpable organomegaly. MUSCULOSKELETAL: No joint swelling or deformity. EXTREMITIES: No cyanosis, clubbing, or pedal edema. NEUROLOGICAL: Gross neurological examination did not reveal any focal deficits. SKIN: No rashes. Assessment and plan -Acute non-ST elevation myocardial infarction patient's Xarelto is being held patient was started on IV heparin status post cardiac catheterization revealing patent grafts -Acute hypoxic respiratory failure secondary to congestive heart failure chronic systolic function EF of around 20 to 25% with acute exacerbation patient has ischemic cardiomyopathy patient is on IV Lasix at this time -Coronary artery disease status post bypass surgery in the past -Episodes of nonsustained VT for which patient is on amiodarone patient has a BiV ICD -Hypomagnesemia magnesium supplemented -Paroxysmal atrial fibrillation on anticoagulation which is being held and patient is on IV heparin -Depression for which patient is on sertraline which will be resumed -Leukocytosis reactive DVT prophylaxis: Patient is on IV heparin Plan Evaluated in the ICU post cardiac catheterization Cardiology recommending Oral amiodarone and oral mexiletine for the PVCs 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 Dr. Gold MD I have performed a history and physical examination and medical decision making of this patient, discussed the same with the dictator, and agree with the dictators assessment and plan as written, documented as a scribe. Based on total visit time, I have performed more than 50% of this visit. Objective - Vital Signs Vital signs: Vital Signs Temp 97.9 F 03/12/24 08:00 Pulse 72 03/12/24 08:00 Resp 14 03/12/24 08:00 BP 146/76 03/12/24 08:00 Pulse Ox 93 L 03/12/24 09:00 FiO2 Intake & Output 03/11/24 03/12/24 03/12/24 18:59 06:59 18:59 Intake Total 240 Output Total 100 Balance -100 240 Weight 71.5 kg 71.5 kg Intake: IV 240 0.9 KVO 40 Output: Urine 100 Other: Voiding Method Urinal Toilet # Voids 1 - Labs CBC & Chem 7: 03/12/24 06:21 03/12/24 06:21 Labs: Abnormal Lab Results - Last 24 Hours (Table) 03/12/24 03/12/24 Range/Units 06:21 06:21 PT 16.2 H (10.0-12.5) sec INR 1.6 H (<1.2) BUN 28 H (9-20) mg/dL Assessment and Plan Time with Patient: Less than 30
--- NOTE | 2024-03-12 15:08 | P.CNPUL ---
History of Present Illness Consult date: 03/12/24 Requesting physician: Keyona Luna Reason for consult: dyspnea, hypoxemia Chief complaint: Shortness of breath History of present illness: This is a very pleasant 83-year-old male patient with a known history of ischemic cardiomyopathy with an ejection fraction of 25%, status post AICD place ment, atrial fibrillation, anticoagulated with Xarelto, coronary artery disease with previous coronary artery bypass grafting in 2009, former smoker, obstructive sleep apnea, intolerant to CPAP, hypertension, hyperlipidemia who was recently discharged from here March 10, 2024 and was to be on home oxygen that was not delivered in time. He returned to the emergency room on 03/11/2024 with complaints of increasing shortness of breath. EMS found him hypoxemic with O2 saturation at 78%. Chest x-ray revealed cardiomegaly with pulmonary vascular congestion and bilateral pleural effusions. White count 7.5. Hemoglobin 13.8. Platelets 193. Sodium 140. Potassium 3.8. Bicarb 30. BUN 28. Creatinine 1.24. Glucose 86. Troponins were 0.123, 1.130, 2.050. He did undergo cardiac catheterization today that revealed right dominant system with total occlusion of the RCA, LAD and circumflex. The left main has some distal disease. Vein graft to the PDA branch of the RCA is patent, vein graft to the radius the media was widely patent. Vein graft to the circumflex and distal marginal and distal circumflex with 2 attachments were widely patent. Based on these findings cardiology consulted us for possible pulmonary involvement causing his shortness of breath. Patient. He is currently sitting up in bed. Awake and alert in no acute distress. On 2 L/min per nasal cannula. He is afebrile. Hemodynamically stable. He states he did smoke for about 15 years at half a pack a day however quit over 35 years ago. He has had a rescue inhaler in the past that he rarely uses. He has been told he has mild obstructive sleep apnea but was intolerant to any type of CPAP device. Moderately impaired left ventricular systolic function with an ejection fraction of 25%. Moderate right ventricular dilatation with an RVSP of 58 mm Hg Review of Systems REVIEW OF SYSTEMS: CONSTITUTIONAL: Denies any recent significant weight loss or weight gain. EYES: Denies change in vision. EARS, NOSE, MOUTH, THROAT: Denies headaches, denies sore throat. CARDIOVASCULAR: Denies chest pain, palpitations or syncopal episodes. RESPIRATORY: Positive for shortness of breath, occasional cough, congestion no hemoptysis. GASTROINTESTINAL: Denies change in appetite, denies abdominal pain GENITOURINARY: Denies hematuria, denies infections. MUSKULOSKELETAL: Denies pain, denies swelling. INTEGUMENTARY: Denies rash, denies eczema. NEUROLOGICAL: Denies recent memory loss, no recent seizure activity. PSYCHIATRIC: Denies anxiety, denies depression. HEMATOLOGIC/LYMPHATIC: Denies anemia, denies enlarged lymph nodes. Past Medical History Past Medical History: Coronary Artery Disease (CAD), Cancer, Hyperlipidemia, Hypertension, Osteoarthritis (OA) Additional Past Medical History / Comment(s): ABDOMINAL ANEURYSM, SNORES- STATES MILD BREATHING PROBLEMS AT NIGHT. , DIFFICULTY SWALLOWING- FEELS LIKE FOOD GETS STUCK. See Dr. Phan's H&P. Shingles 2 years ago. History of Any Multi-Drug Resistant Organisms: None Reported Past Surgical History: Bladder Surgery, Cholecystectomy, Coronary Bypass/CABG, Tonsillectomy Additional Past Surgical History / Comment(s): CABG X6 (2009), pacemaker in 2020 Past Anesthesia/Blood Transfusion Reactions: No Reported Reaction Past Psychological History: No Psychological Hx Reported, Anxiety, Depression Smoking Status: Former smoker Past Alcohol Use History: Occasional Additional Past Alcohol Use History / Comment(s): Quit smoking 20 years ago. Past Drug Use History: None Reported - Past Family History Mother Family Medical History: Cancer Additional Family Medical History / Comment(s): OVARIAN WITH METS. Medications and Allergies Home Medications Medication Instructions Recorded Confirmed Type Atorvastatin [Lipitor] 40 mg PO HS 09/12/16 03/11/24 History Furosemide [Lasix] 20 mg PO DAILY 01/22/21 03/11/24 History Losartan Potassium 50 mg PO DAILY 01/22/21 03/11/24 History Rivaroxaban [Xarelto] 20 mg PO HS 01/22/21 03/11/24 History Ubidecarenone [Co Q-10] 100 mg PO DAILY 04/21/22 03/11/24 History Albuterol Inhaler [Ventolin Hfa 2 puff INHALATION RT-Q6H PRN 03/08/24 03/11/24 History Inhaler] [place]-3/Dha/Epa/Fish Oil [Fish Oil 1 cap PO DAILY 03/08/24 03/11/24 History 500 mg Softgel] Sertraline [Zoloft] 25 mg PO DAILY 03/08/24 03/11/24 History Amiodarone [Cordarone] 200 mg PO DAILY #30 tab 03/10/24 03/11/24 Rx Metoprolol Tartrate [Lopressor] 12.5 mg PO BID 03/11/24 03/11/24 History Allergies Allergy/AdvReac Type Severity Reaction Status Date / Time Penicillins Allergy Anaphylaxis Verified 03/11/24 11:03 vancomycin AdvReac Itching Verified 03/11/24 11:03 Physical Exam Vitals: Vital Signs Temp Pulse Pulse Resp BP BP Pulse Ox 03/12/24 09:00 93 L 03/12/24 08:00 97.9 F 72 14 146/76 94 L 03/12/24 04:00 97.8 F 71 116 H 116/73 03/12/24 00:00 97.7 F 68 16 131/68 03/11/24 23:28 83 17 124/84 90 L 03/11/24 19:56 74 18 98/63 Intake and Output 03/11/24 03/12/24 03/12/24 22:59 06:59 14:59 Intake Total 240 Output Total 100 Balance -100 240 Intake: IV 240 0.9 KVO 40 Output: Urine 100 Other: Voiding Method Urinal Toilet # Voids 1 Weight 72.575 kg 71.5 kg 71.5 kg GENERAL EXAM: Alert, pleasant 83-year-old male patient, resting comfortably in bed, on 2 L nasal cannula, in no apparent distress. HEAD: Normocephalic. EYES: Normal reaction of pupils, equal size. NOSE: Clear with pink turbinates. THROAT: No erythema or exudates. NECK: No masses, no JVD. CHEST: No chest wall deformity. LUNGS: Equal air entry with faint crackles in the posterior bases. CVS: S1 and S2 normal with no audible murmur, regular rhythm. ABDOMEN: No hepatosplenomegaly, normal bowel sounds, no guarding or rigidity. SPINE: No scoliosis or deformity SKIN: No rashes CENTRAL NERVOUS SYSTEM: No focal deficits, tone is normal in all 4 extremities. EXTREMITIES: There is no peripheral edema. No clubbing, no cyanosis. Peripheral pulses are intact. Results - Laboratory Findings CBC and BMP: 03/12/24 06:21 03/12/24 06:21 PT/INR, D-dimer PT 16.2 sec (10.0-12.5) H 03/12/24 06:21 INR 1.6 (<1.2) H 03/12/24 06:21 Abnormal lab findings: Abnormal Labs 03/11/24 03/11/24 03/11/24 07:34 07:34 07:34 WBC 19.6 H Neutrophils # 17.9 H Lymphocytes # 0.9 L PT 25.2 H INR 2.5 H APTT 33.1 H BUN 31 H Glucose 123 H Magnesium 1.5 L Total Bilirubin 1.7 H Troponin I Albumin 3.1 L 03/11/24 03/11/24 03/11/24 07:34 09:03 11:36 WBC Neutrophils # Lymphocytes # PT INR APTT BUN Glucose Magnesium Total Bilirubin Troponin I 0.123 H* 1.130 H* 2.050 H* Albumin 03/12/24 03/12/24 06:21 06:21 WBC Neutrophils # Lymphocytes # PT 16.2 H INR 1.6 H APTT BUN 28 H Glucose Magnesium Total Bilirubin Troponin I Albumin - Diagnostic Findings Chest x-ray: image reviewed Assessment and Plan Assessment: Acute hypoxemic respiratory failure secondary to an acute exacerbation of systolic congestive heart failure, pulmonary hypertension, suspect mild chronic obstructive pulmonary disease Troponin leak secondary to above. Cardiac catheterization today revealed no obstructive coronary artery disease with previous patent grafts History of coronary disease with previous coronary bypass grafting in 2009 Atrial fibrillation anticoagulated with warfarin Ischemic cardiomyopathy with ejection fraction of 25% Mild obstructive sleep apnea, intolerant to CPAP devices in the past Mild underlying COPD not requiring outpatient treatment Former smoker of 15 years at half a pack per day however quit 35 years ago Hypertension Hyperlipidemia Plan: The patient was seen and evaluated Chest x-ray, labs and medications reviewed Cardiac catheterization report reviewed Echocardiogram reviewed Does have home oxygen in place currently Discharge once cleared by cardiology Follow-up in our office for pulmonary function testing and repeat sleep study The patient verbalized understanding and is agreeable to the plan Continue to follow and make further recommendations based on his clinical status I have personally seen and examined the patient, performed the documentation and the assessment and plan as written. Number of minutes spent on the visit: 20 Dictation was produced using [employer] software. Please excuse any grammatical, word or spelling errors.
[2024-03-12] MEDS: MEXILETINE 150 MG CAP PO SCH (20:56)
[2024-03-13 07:37] LABS: AST 35 U/L (17-59); African American GFR (CKD) 62 (>60 ml/min/1.73 sqM); Albumin 2.9 g/dL (3.5-5.0); Alkaline Phosphatase 112 U/L (38-126); Anion Gap 6 mmol/L; Blood Urea Nitrogen 25 mg/dL (9-20); Calcium 8.1 mg/dL (8.4-10.2); Carbon Dioxide 30 mmol/L (22-30); Chloride 100 mmol/L (98-107); Glucose 81 mg/dL (74-99); Non-African American GFR(CKD) 53 (>60 ml/min/1.73 sqM); Sodium 136 mmol/L (137-145); Total Bilirubin 1.3 mg/dL (0.2-1.3); Total Protein 6.9 g/dL (6.3-8.2)
[2024-03-13 07:38] LABS: ALT 26 U/L (4-49); Magnesium 1.7 mg/dL (1.6-2.3)
[2024-03-13 08:09] LABS: Basophils % (A) 1 %; Eosinophils # (A) 0.3 k/uL (0-0.7); Eosinophils % (A) 4 %; HCT 41.4 % (39.0-53.0); Hypochromasia Slight; Lymphocytes # (A) 1.3 k/uL (1.0-4.8); Lymphocytes % (A) 19 %; MCH 30.3 pg (25.0-35.0); MCHC 31.3 g/dL (31.0-37.0); Monocytes # (A) 0.4 k/uL (0-1.0); Monocytes % (A) 5 %; Neutrophils # (A) 4.8 k/uL (1.3-7.7); Neutrophils % (A) 70 %; Platelet Count 234 k/uL (150-450); RBC 4.27 m/uL (4.30-5.90); RDW 15.4 % (11.5-15.5); WBC 6.8 k/uL (3.8-10.6)
--- NOTE | 2024-03-13 14:14 | P.PN ---
Subjective Progress Note Date: 03/13/24 HPI: This gentleman has ischemic cardiomyopathy prior bypass surgery. He also has obstructive sleep apnea does not wear CPAP regularly. He has ventricular ectopy and a BiV ICD. He is here because of increasing shortness of breath but since yesterday he feels well he is in what seems to be a paced rhythm with less frequent PVCs. Renal function is fairly stable in spite of diuresis. He is going for coronary angiogram today. His INR is 1.6. Xarelto has been held for nearly 36 hours. Coronary angiogram today from femoral approach she has abdominal aortic aneurysm I will do an ultrasound to check that. Patient understands the rationale risk benefits options and wishes to proceed with the procedure. 03/13/2024 Patient seen and examined. Yesterday patient underwent cardiac catheterization with Dr. Luna which revealed right dominant system with total occlusion of the RCA, LAD and circumflex. Left main has some distal disease. Vein graft to the PDA branch of the RCA is patent with good flow and entire opacification of the PLF noted. Vein graft to the ramus intermedius widely patent. Vein graft to the circumflex marginal and distal circumflex widely patent. Recommendations for medical therapy. Patient also to complete workup for CPAP. Yesterday, patient was started on Mexitil. Blood pressure 112/61, heart rate 60, pulse ox 92% on room air. Telemetry is paced rhythm. Patient maintained on IV Lasix which will be transition to oral. PHYSICIAL EXAM: Stable vital signs JVD once to 2 cm no carotid bruit S1-S2 with a short systolic murmur lungs reveal decent air entry abdomen is soft lower extremities reveal diminished pulses Central nervous system is normal. IMPRESSION: 1. Ischemic cardiomyopathy status post bypass surgery. 2. Ventricular ectopy and short runs of nonsustained VT which have improved with beta-blockers. 3. Obstructive sleep apnea does not wear CPAP. 4. Bladder cancer. RECOMMENDATIONS: Continue current therapy Transition IV Lasix to oral 60 mg in the morning and 40 mg in the afternoon Continue the addition of Mexitil Continue monitoring overnight and plan for discharge home tomorrow Nurse practitioner note has been reviewed, I agree with documented findings and plan of care. Patient was seen and examined. Objective - Vital Signs Vital signs: Vital Signs Temp 97.4 F L 03/13/24 03:33 Pulse 59 L 03/13/24 08:00 Resp 16 03/13/24 08:00 BP 119/62 03/13/24 08:00 Pulse Ox 97 03/13/24 08:00 FiO2 Intake & Output 03/12/24 03/13/24 03/13/24 18:59 06:59 18:59 Intake Total 730 150 240 Output Total 630 350 400 Balance 100 -200 -160 Weight 71.5 kg 69.9 kg Intake: IV 730 150 0.9 KVO 80 Sodium Chloride 0.9% 1, 450 150 000 ml @ 75 mls/hr IV . [id number] [facility] Rx#:[id number] Oral 240 Output: Urine 630 350 400 Other: Voiding Method Toilet Toilet Urinal # Voids 1 1 # Bowel Movements 1 1 - Labs CBC & Chem 7: 03/13/24 05:53 03/13/24 05:53 Labs: Abnormal Lab Results - Last 24 Hours (Table) 03/13/24 03/13/24 Range/Units 05:53 05:53 RBC 4.27 L (4.30-5.90) m/uL Sodium 136 L (137-145) mmol/L BUN 25 H (9-20) mg/dL Calcium 8.1 L (8.4-10.2) mg/dL Albumin 2.9 L (3.5-5.0) g/dL
--- NOTE | 2024-03-13 15:45 | P.PN ---
Subjective Progress Note Date: 03/13/24 Principal diagnosis: Acute hypoxemic respiratory failure secondary to LV dysfunction/ischemic cardiomyopathy, pulmonary hypertension, suspect mild chronic obstructive pulmonary disease This is a very pleasant 83-year-old male patient with a known history of ischemic cardiomyopathy with an ejection fraction of 25%, status post AICD placement, atrial fibrillation, anticoagulated with Xarelto, coronary artery disease with previous coronary artery bypass grafting in 2009, former smoker, obstructive sleep apnea, intolerant to CPAP, hypertension, hyperlipidemia who was recently discharged from here March 10, 2024 and was to be on home oxygen that was not delivered in time. He returned to the emergency room on 03/11/2024 with complaints of increasing shortness of breath. EMS found him hypoxemic with O2 saturation at 78%. Chest x-ray revealed cardiomegaly with pulmonary vascular congestion and bilateral pleural effusions. White count 7.5. Hemoglobin 13.8. Platelets 193. Sodium 140. Potassium 3.8. Bicarb 30. BUN 28. Creatinine 1.24. Glucose 86. Troponins were 0.123, 1.130, 2.050. He did undergo cardiac catheterization today that revealed right dominant system with total occlusion of the RCA, LAD and circumflex. The left main has some distal disease. Vein graft to the PDA branch of the RCA is patent, vein graft to the radius the media was widely patent. Vein graft to the circumflex and distal marginal and distal circumflex with 2 attachments were widely patent. Based on these findings cardiology consulted us for possible pulmonary involvement causing his shortness of breath. Patient. He is currently sitting up in bed. Awake and alert in no acute distress. On 2 L/min per nasal cannula. He is afebrile. Hemodynamically stable. He states he did smoke for about 15 years at half a pack a day however quit over 35 years ago. He has had a rescue inhaler in the past that he rarely uses. He has been told he has mild obstructive sleep apnea but was intolerant to any type of CPAP device. Moderately impaired left ventricular systolic fun ction with an ejection fraction of 25%. Moderate right ventricular dilatation with an RVSP of 58 mm Hg Patient was seen today on 03/13/2024, patient is feeling better today, breathing easier, he is on room air, does not seem to be in any distress. We are seeing the patient for chronic shortness of breath and we felt is related to his ischemic cardiomyopathy, pulmonary hypertension, and possible underlying COPD and patient had previous history of obstructive sleep apnea, documented, but he could not tolerate CPAP. Patient remains on mostly oral Lasix, 40 mg in a.m. and 40 mg in p.m., he is on Mexitil, and cardiology will likely clear the patient to be discharged in the next 24 hours. WBC count is 6.8 hemoglobin is 13 electrolytes are normal renal profile is normal. Creatinine is 1.25. Objective - Vital Signs Vital signs: Vital Signs Temp 97.4 F L 03/13/24 12:00 Pulse 68 03/13/24 13:48 Resp 21 03/13/24 13:48 BP 112/61 03/13/24 12:00 Pulse Ox 92 L 03/13/24 12:00 FiO2 Intake & Output 03/12/24 03/13/24 03/13/24 18:59 06:59 18:59 Intake Total 730 150 420 Output Total 630 350 400 Balance 100 -200 20 Weight 71.5 kg 69.9 kg Intake: IV 730 150 0.9 KVO 80 Sodium Chloride 0.9% 1, 450 150 000 ml @ 75 mls/hr IV . [id number] [facility], [facility]–1983 Rx#:[id number] Oral 420 Output: Urine 630 350 400 Other: Voiding Method Toilet Toilet Urinal # Voids 1 2 # Bowel Movements 1 1 - Exam GENERAL EXAM: Revealed 83-year-old white male pleasant in no distress HEAD: Normocephalic. EYES: Normal reaction of pupils, equal size. NOSE: Clear with pink turbinates. THROAT: No erythema or exudates. NECK: No masses, no JVD. CHEST: No chest wall deformity. LUNGS: Diminished breath sound bilaterally no crackles rhonchi or wheezes CVS: S1 and S2 normal with no audible murmur, regular rhythm. ABDOMEN: No hepatosplenomegaly, normal bowel sounds, no guarding or rigidity. SKIN: No rashes CENTRAL NERVOUS SYSTEM: Alert oriented x 3 no gross focal deficit EXTREMITIES: No clubbing edema or cyanosis - Labs CBC & Chem 7: 03/13/24 05:53 03/13/24 05:53 Labs: Abnormal Lab Results - Last 24 Hours (Table) 03/13/24 03/13/24 Range/Units 05:53 05:53 RBC 4.27 L (4.30-5.90) m/uL Sodium 136 L (137-145) mmol/L BUN 25 H (9-20) mg/dL Calcium 8.1 L (8.4-10.2) mg/dL Albumin 2.9 L (3.5-5.0) g/dL Assessment and Plan Assessment: Impression Acute hypoxic respiratory failure secondary to cardiomyopathy, LV dysfunction, pulmonary hypertension, mild COPD Troponin leak secondary to above. Cardiac catheterization today revealed no obstructive coronary artery disease with previous patent grafts History of coronary disease with previous coronary bypass grafting in 2009 Atrial fibrillation anticoagulated with warfarin Ischemic cardiomyopathy with ejection fraction of 25% Mild obstructive sleep apnea, intolerant to CPAP devices in the past Mild underlying COPD not requiring outpatient treatment Former smoker of 15 years at half a pack per day however quit 35 years ago Hypertension Hyperlipidemia Recommendation: Continue oxygen and titrate accordingly patient may need home O2, according to the he does have oxygen at home but he may need portable oxygen down the line. Continue bronchodilators Continue cardiac meds as ordered by cardiology, echocardiogram was reviewed Patient could be discharged once cleared by cardiology and follow-up on outpati ent basis Patient may have been seen in the past by Dr. Pacheco for his obstructive sleep apnea syndrome. Could have an appointment in our office postdischarge. Will continue to follow Time with Patient: Less than 30
[2024-03-13] MEDS: FUROSEMIDE 40 MG TAB PO SCH (17:00)
[2024-03-13 19:55] VITALS: TEMP 97.7
[2024-03-13] MEDS ORDERED: ALBUTEROL HFA INHALER INHALATION PRN (19:59)
--- NOTE | 2024-03-13 20:01 | P.PN ---
Subjective Progress Note Date: 03/13/24 83-year-old male came in with complaints of shortness of breath found to be in congestive heart failure as well as non-ST elevation myocardial infarction with initial troponin being 0.123 followed by 1.13 and 2.050. Patient was discharged yesterday from the hospital after he was evaluated for lightheadedness and dizziness and patient had issues with bradycardia and episodes of nonsustained VT because of which patient was started on amiodarone dose of metoprolol was decreased and patient did not tolerate metoprolol very well in the past when the dose was increased. Patient has extensive cardiac history with coronary artery disease ischemically myopathy EF of around 25% with an biventricular AICD. Patient had a cardiac catheterization with CABG in the past recent cardiac cath showed the vein graft to ramus was occluded.. 03/12/2024 Patient is evaluated today in follow up in the ICU evaluated post cardiac catheterization revealing patent grafts. Patient is currently not having any chest pain. INR 1.6. BUN 28 creatinine 1.24. 03/13/2024 Patient evaluated in follow up on the cardiac unit, has been transferred out of the intensive care unit. Currently chest pain free. Patient does wear oxygen at home 2L as needed and states he is usually short of breath when walking for extended periods of time. Cardiology adjusting oral medications and patient is currently on a combination of oral amiodarone, oral mexilitine. Labs today showing sodium level 136, BUN 25, creatinine 1.25. Review of Systems Constitutional: Denied any fatigue denied any fever. Cardio vascular: denied any chest pain, palpitations Gastrointestinal: denied any nausea, vomiting, diarrhea Pulmonary: Denied any shortness of breath cough Neurologic denied any new focal deficits All inpatient medications were reviewed and appropriate changes in these medications as dictated in the interval history and assessment and plan. PHYSICAL EXAMINATION: GENERAL: The patient is alert and oriented x3, not in any acute distress. Well developed, well nourished. HEENT: Pupils are round and equally reacting to light. EOMI. No scleral icterus. No conjunctival pallor. Normocephalic, atraumatic. No pharyngeal erythema. No th yromegaly. CARDIOVASCULAR: S1 and S2 present. No murmurs, rubs, or gallops. PULMONARY: Chest is clear to auscultation, no wheezing or crackles. ABDOMEN: Soft, nontender, nondistended, normoactive bowel sounds. No palpable organomegaly. MUSCULOSKELETAL: No joint swelling or deformity. EXTREMITIES: No cyanosis, clubbing, or pedal edema. NEUROLOGICAL: Gross neurological examination did not reveal any focal deficits. SKIN: No rashes. Assessment and plan -Acute non st elevation RI /ischemic cardiomyopathy post CABG -Acute hypoxic respiratory failure secondary to congestive heart failure -chronic systolic function EF of around 20 to 25% with acute exacerbation patient has ischemic cardiomyopathy -Coronary artery disease status post bypass surgery in the past -Episodes of nonsustained VT for which patient is on amiodarone patient has a BiV ICD -Hypomagnesemia magnesium supplemented -Paroxysmal atrial fibrillation on anticoagulation -Depression for which patient is on sertraline -Leukocytosis reactive DVT prophylaxis: Xarelto Plan Lasix has been transitioned to oral dosing Cardiology recommending Oral amiodarone and oral mexiletine for the PVCs Resume Xarelto Continue cardiac agriscience teacher renal function and electrolytes Discharge home in the next 24 hours The impression and plan of care has been dictated by Tamra Brownlee, Nurse Practitioner as directed. Dr. Gold MD I have performed a history and physical examination and medical decision making of this patient, discussed the same with the dictator, and agree with the dictators assessment and plan as written, documented as a scribe. Based on total visit time, I have performed more than 50% of this visit. Objective - Vital Signs Vital signs: Vital Signs Temp 97.4 F L 03/13/24 12:00 Pulse 68 03/13/24 13:48 Resp 21 03/13/24 13:48 BP 112/61 03/13/24 12:00 Pulse Ox 92 L 03/13/24 12:00 FiO2 Intake & Output 03/13/24 03/13/24 03/14/24 06:59 18:59 06:59 Intake Total 150 660 Output Total 350 400 Balance -200 260 Weight 69.9 kg Intake: IV 150 Sodium Chloride 0.9% 1, 150 000 ml @ 75 mls/hr IV . [id number] [facility] Rx#:[id number] Oral 660 Output: Urine 350 400 Other: Voiding Method Toilet Urinal # Voids 2 # Bowel Movements 1 1 - Labs CBC & Chem 7: 03/13/24 05:53 03/13/24 05:53 Labs: Abnormal Lab Results - Last 24 Hours (Table) 03/13/24 03/13/24 Range/Units 05:53 05:53 RBC 4.27 L (4.30-5.90) m/uL Sodium 136 L (137-145) mmol/L BUN 25 H (9-20) mg/dL Calcium 8.1 L (8.4-10.2) mg/dL Albumin 2.9 L (3.5-5.0) g/dL Assessment and Plan Time with Patient: Less than 30
[2024-03-13] MEDS: RIVAROXABAN 15 MG TAB PO SCH (21:06)
[2024-03-14 08:32] VITALS: BP 91/55; PULSE 69; RESP 16
[2024-03-14] MEDS: FUROSEMIDE 20 MG TAB PO SCH (08:33)
--- NOTE | 2024-03-14 13:53 | P.PN ---
Subjective Progress Note Date: 03/14/24 Principal diagnosis: Acute hypoxemic respiratory failure secondary to LV dysfunction/ischemic cardiomyopathy, pulmonary hypertension, suspect mild chronic obstructive pulmonary disease This is a very pleasant 83-year-old male patient with a known history of ischemic cardiomyopathy with an ejection fraction of 25%, status post AICD placement, atrial fibrillation, anticoagulated with Xarelto, coronary artery disease with previous coronary artery bypass grafting in 2009, former smoker, obstructive sleep apnea, intolerant to CPAP, hypertension, hyperlipidemia who was recently discharged from here March 10, 2024 and was to be on home oxygen that was not delivered in time. He returned to the emergency room on 03/11/2024 with complaints of increasing shortness of breath. EMS found him hypoxemic with O2 saturation at 78%. Chest x-ray revealed cardiomegaly with pulmonary vascular congestion and bilateral pleural effusions. White count 7.5. Hemoglobin 13.8. Platelets 193. Sodium 140. Potassium 3.8. Bicarb 30. BUN 28. Creatinine 1.24. Glucose 86. Troponins were 0.123, 1.130, 2.050. He did undergo cardiac catheterization today that revealed right dominant system with total occlusion of the RCA, LAD and circumflex. The left main has some distal disease. Vein graft to the PDA branch of the RCA is patent, vein graft to the radius the media was widely patent. Vein graft to the circumflex and distal marginal and distal circumflex with 2 attachments were widely patent. Based on these findings cardiology consulted us for possible pulmonary involvement causing his shortness of breath. Patient. He is currently sitting up in bed. Awake and alert in no acute distress. On 2 L/min per nasal cannula. He is afebrile. Hemodynamically stable. He states he did smoke for about 15 years at half a pack a day however quit over 35 years ago. He has had a rescue inhaler in the past that he rarely uses. He has been told he has mild obstructive sleep apnea but was intolerant to any type of CPAP device. Moderately impaired left ventricular systolic fun ction with an ejection fraction of 25%. Moderate right ventricular dilatation with an RVSP of 58 mm Hg Patient was seen today on 03/13/2024, patient is feeling better today, breathing easier, he is on room air, does not seem to be in any distress. We are seeing the patient for chronic shortness of breath and we felt is related to his ischemic cardiomyopathy, pulmonary hypertension, and possible underlying COPD and patient had previous history of obstructive sleep apnea, documented, but he could not tolerate CPAP. Patient remains on mostly oral Lasix, 40 mg in a.m. and 40 mg in p.m., he is on Mexitil, and cardiology will likely clear the patient to be discharged in the next 24 hours. WBC count is 6.8 hemoglobin is 13 electrolytes are normal renal profile is normal. Creatinine is 1.25. Evaluated today on 03/14/2024, patient is doing well, relatively asymptomatic, his shortness of breath is significantly improved, been ambulating down the hallway, patient will likely be discharged home today. Objective - Vital Signs Vital signs: Vital Signs Temp 97.7 F 03/13/24 19:54 Pulse 69 03/14/24 08:27 Resp 16 03/14/24 08:27 BP 91/55 03/14/24 08:27 Pulse Ox 95 03/14/24 08:27 FiO2 Intake & Output 03/13/24 03/14/24 03/14/24 18:59 06:59 18:59 Intake Total 660 240 Output Total 400 Balance 260 240 Weight 69.8 kg Intake: Oral 660 240 Output: Urine 400 Other: Voiding Method Toilet Toilet Urinal Urinal # Voids 2 1 # Bowel Movements 1 - Exam GENERAL EXAM: Revealed 83-year-old white male pleasant in no distress, on room air. HEAD: Normocephalic. EYES: Normal reaction of pupils, equal size. NOSE: Clear with pink turbinates. THROAT: No erythema or exudates. NECK: No masses, no JVD. CHEST: No chest wall deformity. LUNGS: Diminished breath sound bilaterally no crackles rhonchi or wheezes CVS: S1 and S2 normal with no audible murmur, regular rhythm. ABDOMEN: No hepatosplenomegaly, normal bowel sounds, no guarding or rigidity. SKIN: No rashes CENTRAL NERVOUS SYSTEM: Alert oriented x 3 no gross focal deficit EXTREMITIES: No clubbing edema or cyanosis - Labs CBC & Chem 7: 03/13/24 05:53 03/13/24 05:53 Assessment and Plan Assessment: Impression Acute hypoxic respiratory failure secondary to cardiomyopathy, LV dysfunction, pulmonary hypertension, mild COPD Troponin leak secondary to above. Cardiac catheterization today revealed no obstructive coronary artery disease with previous patent grafts History of coronary disease with previous coronary bypass grafting in 2010 Atrial fibrillation anticoagulated with warfarin Ischemic cardiomyopathy with ejection fraction of 25% Mild obstructive sleep apnea, intolerant to CPAP devices in the past Mild underlying COPD not requiring outpatient treatment Former smoker of 15 years at half a pack per day however quit 35 years ago Hypertension Hyperlipidemia Recommendation: Cleared the patient for discharge if cleared by cardiology Continue bronchodilators Patient could have follow-up on outpatient basis Time with Patient: Less than 30
--- NOTE | 2024-03-14 14:23 | P.PN ---
Subjective Progress Note Date: 03/14/24 Principal diagnosis: HPI: This patient has history of CAD ischemic cardiomyopathy prior bypass surgery with patent grafts. He has hypertension hyperlipidemia obstructive sleep apnea and chronic hypoxemic respiratory failure. Following hospitalization cardiac cath revealed no significant obstructive CAD involving bypass graft. All 5 grafts are patent. He was diuresed aggressively he feels better he is walking the hallways without symptoms. He was seen by pulmonology as well he is advised to be on oxygen. He has a biventricular ICD and ejection fraction in the 25% range. Another issue is persistent PVCs and short runs of wide QRS tachycardia. However on a combination of mexiletine and amiodarone his ventricular ectopy has decreased he feels better. Will increase activity and discharge him today and I will see him in the office in 2 weeks. I reviewed all the medications and talk to the patient, and son. PHYSICIAL EXAM: Vitals are stable JVD 1 cm no carotid bruit S1-S2 heard normally short systolic murmur at the base second heart sound preserved lungs reveal decent air entry abdomen is soft lower extremity edema has resolved. IMPRESSION: 1. Ischemic cardiomyopathy. 2. Chronic hypoxemic respiratory failure with obstructive sleep apnea. 3. Ventricular ectopy and ventricular tachycardia. 4. Bladder cancer. 5.. RECOMMENDATIONS: Home on current medical regimen office visit with me in 2 weeks advised to be compliant with oxygen and take his medications as advised. To call for questions. Objective - Vital Signs Vital signs: Vital Signs Temp 97.7 F 03/13/24 19:54 Pulse 69 03/14/24 08:27 Resp 16 03/14/24 08:27 BP 91/55 03/14/24 08:27 Pulse Ox 95 03/14/24 08:27 FiO2 Intake & Output 03/13/24 03/14/24 03/14/24 18:59 06:59 18:59 Intake Total 660 240 Output Total 400 Balance 260 240 Weight 69.8 kg Intake: Oral 660 240 Output: Urine 400 Other: Voiding Method Toilet Toilet Urinal Urinal # Voids 2 1 # Bowel Movements 1 - Labs CBC & Chem 7: 03/13/24 05:53 03/13/24 05:53
--- NOTE | 2024-03-17 18:27 | P.DS ---
Providers Date of admission: 03/11/24 09:25 Attending physician: Elisa Howard Consults: 03/11/24 08:49 Consult Physician Urgent Consulting Provider: Ellen Gupta Consult Reason/Comments: NSTEMI, CHF Do you want consulting provider notified?: Yes 03/11/24 11:41 Consult Physician Routine Consulting Provider: Terry Granda Consult Reason/Comments: hx bladder ca, recent weight loss 60-70lbs, fatigue Do you want consulting provider notified?: Yes 03/12/24 11:46 Consult Physician Routine Consulting Provider: Benedicto Riggs Consult Reason/Comments: Obstructive Sleep Apnea noncompliant with CPAP Do you want consulting provider notified?: Yes Primary care physician: [facility] Course: Date of service 03/14/2024 Final Diagnosis -Acute non st elevation MD /ischemic cardiomyopathy post CABG -Acute hypoxic respiratory failure secondary to congestive heart failure -chronic systolic function EF of around 20 to 25% with acute exacerbation patient has ischemic cardiomyopathy -Coronary artery disease status post bypass surgery in the past -Episodes of nonsustained VT for which patient is on amiodarone patient has a BiV ICD; improved with beta blockers -Hypomagnesemia magnesium supplemented -Paroxysmal atrial fibrillation on anticoagulation -Depression for which patient is on sertraline -Leukocytosis reactive -Obstructive sleep apnea does not wear CPAP. -Bladder cancer. Discharge Disposition Patient is stable for discharge home. Has been cleared by cardiology. Recommending outpatient work up for CPAP. Discharged on oral mexitil twice daily, oral metoprolol twice daily. Oral lasix 60 mg in the AM and 40 mg at 1600. Patient to follow up with DR SARINA Luna in the office Mar 20 at 245 pm. Hospital Course 83-year-old male came in with complaints of shortness of breath found to be in congestive heart failure as well as non-ST elevation myocardial infarction with initial troponin being 0.123 followed by 1.13 and 2.050. Patient was discharged day before this admission from the hospital after he was evaluated for lightheadedness and dizziness and patient had issues with bradycardia and episodes of nonsustained VT because of which patient was started on amiodarone d ose of metoprolol was decreased and patient did not tolerate metoprolol very well in the past when the dose was increased. Patient has extensive cardiac history with coronary artery disease ischemically myopathy EF of around 25% with an biventricular AICD. Patient had a cardiac catheterization with CABG in the past recent cardiac cath showed the vein graft to ramus was occluded. He was admitted with cardiac work up. Went to the cardiac dock or pier laborer revealed right dominant system with total occlusion of the RCA, LAD and circumflex. Left main has some distal disease. Vein graft to the PDA branch of the RCA is patent with good flow and entire opacification of the PLF noted. Vein graft to the ramus intermedius widely patent. Vein graft to the circumflex marginal and distal circumflex widely patent. Recommendations for medical therapy. Due to the episodes of nonsustained vtach patient was started on mexitil and amidoarone. He was monitored on cardiac telemetry. He has been up ambulating and having no reports of chest pain. He is short of breath at baseline and does wear 2L of oxygen via nasal cannula PRN. Please see medication reconciliation for a list of current medications. Thank you for allowing us to participate in the care of this patient. The impression and plan of care has been dictated by Tamra Brownlee, Nurse Practitioner as directed. Dr. Gold MD I have performed a history and physical examination and medical decision making of this patient, discussed the same with the dictator, and agree with the dictators assessment and plan as written, documented as a scribe. Based on total visit time, I have performed more than 50% of this visit. Patient Condition at Discharge: Stable Plan - Discharge Summary Discharge Rx Participant: Yes New Discharge Prescriptions: New Aspirin 81 mg PO DAILY #30 tab Furosemide [Lasix] 60 mg PO DAILY #90 tab Furosemide [Lasix] 40 mg PO 1600 #30 tab Metoprolol Tartrate [Lopressor] 50 mg PO BID #60 tab Mexiletine [Mexitil] 150 mg PO Q12HR #60 cap Continue Atorvastatin [Lipitor] 40 mg PO HS Losartan Potassium 50 mg PO DAILY Rivaroxaban [Xarelto] 20 mg PO HS Albuterol Inhaler [Ventolin Hfa Inhaler] 2 puff INHALATION RT-Q6H PRN PRN Reason: Shortness Of Breath Sertraline [Zoloft] 25 mg PO DAILY Ubidecarenone [Co Q-10] 100 mg PO DAILY [place]-3/Dha/Epa/Fish Oil [Fish Oil 500 mg Softgel] 1 cap PO DAILY Amiodarone [Cordarone] 200 mg PO DAILY #30 tab Discontinued Furosemide [Lasix] 20 mg PO DAILY Metoprolol Tartrate [Lopressor] 12.5 mg PO BID Discharge Medication List Atorvastatin [Lipitor] 40 mg PO HS 09/12/16 [History] Losartan Potassium 50 mg PO DAILY 01/22/21 [History] Rivaroxaban [Xarelto] 20 mg PO HS 01/22/21 [History] Ubidecarenone [Co Q-10] 100 mg PO DAILY 04/21/22 [History] Albuterol Inhaler [Ventolin Hfa Inhaler] 2 puff INHALATION RT-Q6H PRN 03/08/24 [History] [place]-3/Dha/Epa/Fish Oil [Fish Oil 500 mg Softgel] 1 cap PO DAILY 03/08/24 [History] Sertraline [Zoloft] 25 mg PO DAILY 03/08/24 [History] Amiodarone [Cordarone] 200 mg PO DAILY #30 tab 03/10/24 [Rx] Aspirin 81 mg PO DAILY #30 tab 03/14/24 [Rx] Furosemide [Lasix] 40 mg PO 1600 #30 tab 03/14/24 [Rx] Furosemide [Lasix] 60 mg PO DAILY #90 tab 03/14/24 [Rx] Metoprolol Tartrate [Lopressor] 50 mg PO BID #60 tab 03/14/24 [Rx] Mexiletine [Mexitil] 150 mg PO Q12HR #60 cap 03/14/24 [Rx] Follow up Appointment(s)/Referral(s): Keyona Luna MD [STAFF PHYSICIAN] - 03/20/24 2:45 pm () [facility] [NON-[facility]FF] - John Arellano MD [Primary Care Provider] - 1-2 days ( Please call to schedule follow up appoitment. ) Ambulatory/Diagnostic Orders: Basic Metabolic Panel [LAB.AMB] Location: None Selected Complete Blood Count w/diff [LAB.AMB] Time Frame: 3 Days, Location: None Selected Patient Instructions/Handouts: *Surgery [facility] - After Heart Catheterization - [employer] Metals Instructions, Heart Healthy Diet (GEN) Discharge Disposition: HOME SELF-CARE
== END 2024-03-14 12:00 | disposition home or self-care (01) | DRG 280 ==
LOC: EC 06:33 → 3SCARD 09:25 → 2SICU 19:58 → 3SCARD 03-12 22:37
PROVIDERS: ADMIT Hospitalist; ATTEND Hospitalist
PROC: 4A023N7 Measurement of Cardiac Sampling and Pressure, Left Heart, Percutaneous Approach (ICD-10-PCS; principal; 2024-03-12 10:30)
PROC: B2131ZZ Fluoroscopy of Multiple Coronary Artery Bypass Grafts using Low Osmolar Contrast (ICD-10-PCS; principal; 2024-03-12 10:30)
PROC: B2171ZZ Fluoroscopy of Right Internal Mammary Bypass Graft using Low Osmolar Contrast (ICD-10-PCS; principal; 2024-03-12 10:30)
PROC: B2111ZZ Fluoroscopy of Multiple Coronary Arteries using Low Osmolar Contrast (ICD-10-PCS; principal; 2024-03-12 10:30)
DX: I11.0 Hypertensive heart disease with heart failure (principal); I50.23 Acute on chronic systolic (congestive) heart failure; I21.4 Non-ST elevation (NSTEMI) myocardial infarction; J96.21 Acute and chronic respiratory failure with hypoxia; I47.20 Ventricular tachycardia, unspecified; I27.20 Pulmonary hypertension, unspecified; R13.10 Dysphagia, unspecified; C67.9 Malignant neoplasm of bladder, unspecified; J44.9 Chronic obstructive pulmonary disease, unspecified; I71.40 Abdominal aortic aneurysm, without rupture, unspecified; F32.A Depression, unspecified; G47.33 Obstructive sleep apnea (adult) (pediatric); I25.10 Atherosclerotic heart disease of native coronary artery without angina pectoris; I25.5 Ischemic cardiomyopathy; M19.90 Unspecified osteoarthritis, unspecified site; I48.0 Paroxysmal atrial fibrillation; I49.3 Ventricular premature depolarization; D72.829 Elevated white blood cell count, unspecified; E78.5 Hyperlipidemia, unspecified; E83.42 Hypomagnesemia; Z95.1 Presence of aortocoronary bypass graft; Z79.01 Long term (current) use of anticoagulants; Z79.899 Other long term (current) drug therapy; Z87.891 Personal history of nicotine dependence; Z95.810 Presence of automatic (implantable) cardiac defibrillator; Z71.89 Other specified counseling; Z71.3 Dietary counseling and surveillance; Z28.21 Immunization not carried out because of patient refusal; Z86.69 Personal history of other diseases of the nervous system and sense organs; Z95.9 Presence of cardiac and vascular implant and graft, unspecified; Z88.1 Allergy status to other antibiotic agents; Z88.0 Allergy status to penicillin; Z88.8 Allergy status to other drugs, medicaments and biological substances
CPT/HCPCS: 36415; 71046; 80048; 80053; 81003; 83735; 83880; 84484; 85025; 85027; 85610; 85730; 93005; 93459; 93979; 96365; 96366; 96375; 99291